=== PATIENT | female | born 1955 | race Caucasian/White ===

== ENCOUNTER → 2016-07-09 | Outpatient (CLI) | payer BC ==
[2016-07-09 10:02] VITALS: BP 127/89; PULSE 112; RESP 20; TEMP 98.3; BMI 38.6
--- NOTE | 2016-07-19 15:02 | P.PN ---
Progress Note - Text DATE OF CONSULTATION: 07/09/2016 CHIEF COMPLAINT: Bariatric consultation. HISTORY OF PRESENT ILLNESS: Marii Juan is a 61-year-old female who has a prior history of a sleeve gastrectomy performed at an outside institution over 5 years ago. Her highest weight for her 5 feet 3-1/2 inch frame was 307 pounds. Her lowest weight was down to 187 pounds. Today she comes in weighing 221 pounds. She has already regained 34 pounds from her lowest. Percent excess weight loss is 51%. Again, her ideal body weight for her 5 feet 3-1/2 frame is 140 pounds. She has developed complications from her sleeve gastrectomy including severe gastroesophageal reflux disease uncontrolled by her medications. Additionally, she also reports epigastric abdominal pain. She did complete an upper endoscopy which was consistent with symptomatic diaphragmatic hiatal hernia as well as complications from her sleeve gastrectomy and dilation. As a result of complications from her sleeve gastrectomy now she presents for further evaluation and management. PAST MEDICAL HISTORY: 1. Morbid obesity. 2. Diabetes type 2, [id number]. 3. Hypertension. 4. Depression. 5. Hyperlipidemia. 6. Gastroesophageal reflux disease. 7. Magnesium deficiency. 8. Diabetic neuropathy. 9. Vitamin D deficiency. 10. Asthma. 11. Postoperative nausea and vomiting. 12. History of difficult intubation. PAST SURGICAL HISTORY: 1. Sleeve gastrectomy. 2. . 3. Hysterectomy. 4. Abdominoplasty. 5. Tendon release. 6. Blepharoplasty. MEDICATIONS: 1. Januvia. 2. Glucophage. 3. Benadryl. 4. Norflex. 5. Effexor-XR. 6. Restoril. 7. Zocor. 8. Protonix. 9. Multivitamin. 10. Magnesium oxide. 11. Cozaar. 12. Amaryl. 13. Neurontin. 14. Vitamin D. 15. Symbicort. 16. Ventolin inhaler. ALLERGIES: CODEINE. SOCIAL HISTORY: Remote history of tobacco use. FAMILY HISTORY: Pertinent for morbid obesity. REVIEW OF SYSTEMS: CONSTITUTIONAL: [place] body weight is 140 pounds. Highest weight of 307 pounds. Present weight 221 pounds. She has maintained an 86 pound weight loss in 5 years. Percent excess weight loss of 51%. Recent weight gain of 34 pounds. BMI reduced from 53.6 down to 38.6. Total BMI point reduction of 15 points. HEENT: Denies any troubles with vision or hearing. Does deny dysphagia. ENDOCRINE: History of diabetes, type II. No reports of thyroid disorder. RESPIRATORY: History of obstructive sleep apnea. She reports restless sleep. She has not been treated for sleep apnea as well. No recent pneumonia. CARDIOVASCULAR: History of hypertension. Denies any recent heart attack. GASTROINTESTINAL: Has severe gastroesophageal reflux disease. Denies any dumping syndrome. MUSCULOSKELETAL: History of diffuse joint arthritis including of the bilateral hips and knees. NEURO: Prior history of head injury with troubles with memory. Otherwise, no reports of seizure disorders. PSYCH: History of depression without suicidal ideation. HEMATOLOGIC: Denies any easy bruising or bleeding or personal history of DVTs. PHYSICAL EXAM: VITAL SIGNS: 98.3, 112, 20, 127/89; 5 feet 3-1/2, 221 pounds. Body mass index of 38.6. GENERAL: Well-developed female no acute distress. HEENT: No scleral icterus. Extraocular movements grossly intact. Moist buccal mucosa. NECK: Supple without lymphadenopathy. CHEST: Nonlabored respirations. Equal excursions. CARDIOVASCULAR: Regular rate and rhythm. ABDOMEN: Soft, nontender, nondistended. MUSCULOSKELETAL: No clubbing, cyanosis, or edema. NEURO: No focal or lateralizing signs. Cranial nerves II through XII grossly within normal limits. PSYCH: Appropriate affect. Alert and oriented to person, place, and time. LABS: Bariatric metabolic panel was reviewed demonstrating hemoglobin was low at 11. INR was within normal limits. Creatinine was elevated at 1.1. Hemoglobin A1c was low at 6.2. Magnesium was low at 1.4. Percent iron saturation was low at 12.2. Iron was low normal at 51. Triglycerides high at 165. HDL was elevated at 63. Trace elements as well as thiamine and B complex were within normal limits. STUDIES: Upper endoscopy was reviewed, demonstrating findings consistent with diaphragmatic hiatal hernia of 6 cm. Large gastric reservoir with LA grade A erosive esophagitis. Chronic gastritis also identified. Pathology report reviewed, demonstrating chronic gastritis without H. pylori gastritis. ASSESSMENT: 1. Morbid obesity due to excess calories. 2. Body mass index reduced from 53.6 down to 38.6. 3. History of status post sleeve gastrectomy. 4. Sleeve gastrectomy complications including gastroesophageal reflux disease and diaphragmatic hiatal hernia. 5. Obstructive sleep apnea, untreated. 6. Diabetes type 2, not insulin-dependent. 7. Essential hypertension. 8. Osteoarthritis. 9. Asthma. 10. History of difficult intubation. 11. History postoperative nausea and vomiting. PLAN: 1. I have gone over her presentation for which she actually has complications from her sleeve gastrectomy with epigastric abdominal pain and diaphragmatic hiatal hernia. As such, given the severity of reflux disease and hiatal hernia, I have recommended gastric bypass as a corrective procedure. 2. She is actually undergoing medical supervised weight loss at least for the past 4 months. Her weight has been fairly stable despite prior weight loss attempts. 3. In the interim, she is taking toxic doses between Zantac and Protonix to try to control her symptoms; however, her symptoms are still moderate to severe. 4. Recommend treatment for obstructive sleep apnea including CPAP machine and evaluation is advised. 5. Also recommend EKG evaluation as she was tachycardic. 6. Recommend medical risk assessment and clearance. 7. On further discussion, she demonstrates understanding of the risks for surgery; however, she may benefit from a psychiatric evaluation as she has baseline depression. 8. I have recommended follow-up at least on a monthly basis for her medical supervised weight loss between myself and primary care provider. Thank you very much for this kind consultation.
== END | disposition home or self-care (01) ==
LOC: BARWHC3 09:33
PROVIDERS: ATTEND Surgery Plastic and Reconstructive Surgery
DX: Z01.818 Encounter for other preprocedural examination (principal); Z98.84 Bariatric surgery status; F17.200 Nicotine dependence, unspecified, uncomplicated; Z88.6 Allergy status to analgesic agent; Z79.899 Other long term (current) drug therapy; E66.01 Morbid (severe) obesity due to excess calories; Z68.38 Body mass index [BMI] 38.0-38.9, adult; K95.89 Other complications of other bariatric procedure; K21.9 Gastro-esophageal reflux disease without esophagitis; K44.9 Diaphragmatic hernia without obstruction or gangrene; G47.33 Obstructive sleep apnea (adult) (pediatric); E11.9 Type 2 diabetes mellitus without complications; I10 Essential (primary) hypertension; M19.90 Unspecified osteoarthritis, unspecified site; J45.909 Unspecified asthma, uncomplicated; Z87.898 Personal history of other specified conditions
CPT/HCPCS: 99201

== ENCOUNTER → 2016-09-01 | Outpatient (CLI) | payer BC ==
--- NOTE | 2016-09-01 19:07 | CONS ---
PRIMARY CARE PHYSICIAN: Dr. Marii Goncalves. REFERRING PHYSICIAN: Dr. Carol Rogers A 61-year-old female patient coming in for sleep apnea evaluation. The patient has had a history of morbid obesity and she has undergone gastric sleeve procedure many years back at [facility] through Dr. Wilder. The patient has lost a considerable amount of weight and back then she used to weigh around 307 pounds and she is down to 187. The patient back then was diagnosed having obstructive sleep apnea and she was offered CPAP therapy through [facility], which she was unable to tolerate and use and she stayed off treatment. Nevertheless, with subsequent weight loss, she felt better and she would not require any treatment. Currently she weighs 222 pounds. She is having active symptoms of GERD to the point where the patient is unable to sleep flat in bed and she has been using a couple of pillows to keep her head of the bed elevated. The patient is refluxing at all times and for that reason she had seen Dr. Rogers, who has found a moderate to large size hiatal hernia and her reflux has been refractory to treatment, despite being on high-dose Protonix and conservative measures. At this point in time, the patient is being considered for another surgery which will include a Yessenia-en-Y gastric bypass surgery. She was referred for another sleep apnea evaluation, knowing that there is some concern of residual obstructive sleep apnea. The patient is snoring, according to her , and she is having some difficulties in maintaining sleep. She goes to bed around 10:30 p.m., wakes up at 7:00 a.m. in the morning. She is averaging more than 5 hours of sleep. No nocturia. No dry mouth. No anxiety or panic attacks. Main complaint at nighttime remains heartburn, which also occurs during the day. 1. Morbid obesity, status post gastric sleeve procedure; details discussed above. 2. Obstructive sleep apnea, history of. 3. Gastroesophageal reflux disease. 4. Diabetes. 5. Hypertension. 6. Bronchial asthma. 7. Hyperlipidemia. 8. Hiatal hernia. Past surgical history includes sleeve gastrectomy, hysterectomy, and abdominoplasty. DRUG ALLERGIES ARE CODEINE SENSITIVITY. Outpatient medication list includes: 1. Glucophage 1 g b.i.d. 2. Protonix 40 b.i.d. 3. Effexor 150 mg p.o. daily. 4. Amaryl 4 mg p.o. twice a day. 5. Januvia 100 mg p.o. daily. 6. Norvasc 5 mg p.o. daily. 7. Symbicort 160/4.5, 2 puffs twice a day. 8. Ventolin as needed. 9. Temazepam 30 mg p.o. at bedtime. 10. Zocor 20 mg p.o. daily. 11. Cozaar 100 mg p.o. daily. 12. Neurontin 300 mg p.o. daily. 13. Zofran an as-needed basis. 14. The patient has also various supplements. SOCIAL HISTORY: The patient is a nonsmoker. No history of alcoholism. No history of IV drugs. FAMILY HISTORY: Noncontributory. REVIEW OF SYSTEMS: Twelve-point review of systems was done and the positive findings were all mentioned above in the history of present illness. BP is 147/82, pulse 106, respirations 16, temperature 98.7, saturation 96% on room air. Temperature 97.2. Weight is 222. Height is 5 feet 3 inches. Neck size 14-1/2 inches. GENERAL APPEARANCE: Calm, comfortable. HEENT: Short neck, crowding in posterior pharynx. There is no goiter, neck masses. LUNGS: Clear to auscultation. HEART: Heart sounds are regular rate and rhythm. Normal S1, S2. ABDOMEN: Soft, nontender. No organomegaly. EXTREMITIES: No edema. No cyanosis or clubbing. IMPRESSION: 1. Obstructive sleep apnea, currently under re-investigation. The patient had been diagnosed many years back; however, she has lost a considerable amount of weight following sleeve gastrectomy. She is having some symptoms of obstructive sleep apnea and she needs to be re-evaluated. 2. Severe gastroesophageal reflux with excessive nocturnal symptoms. 3. Rule out obstructive sleep apnea contributing to her symptoms of gastroesophageal reflux disease. 4. Large hiatal hernia. 5. Gastric sleeve procedure for morbid obesity. 6. Diabetes. 7. Hypertension. 8. Bronchial asthma. 9. Hyperlipidemia PLAN: 1. Encourage further weight loss. 2. Proceed with another sleep study to assess the presence and severity of obstructive sleep apnea and decide treatment accordingly.
== END | disposition home or self-care (01) ==
LOC: SLEEP 14:12
PROVIDERS: ATTEND Internal Medicine Critical Care Medicine
DX: G47.33 Obstructive sleep apnea (adult) (pediatric) (principal); E66.01 Morbid (severe) obesity due to excess calories; K21.9 Gastro-esophageal reflux disease without esophagitis; K44.9 Diaphragmatic hernia without obstruction or gangrene; Z98.84 Bariatric surgery status; E11.9 Type 2 diabetes mellitus without complications; I10 Essential (primary) hypertension; J45.909 Unspecified asthma, uncomplicated; E78.5 Hyperlipidemia, unspecified; Z79.899 Other long term (current) drug therapy; Z88.8 Allergy status to other drugs, medicaments and biological substances
CPT/HCPCS: 99211

== ENCOUNTER → 2016-10-15 | Outpatient (CLI) | payer BC ==
[2016-10-15 09:09] VITALS: BP 133/81; PULSE 94; RESP 15; TEMP 98.2; BMI 38.9
--- NOTE | 2016-12-03 13:40 | P.PN ---
Progress Note - Text DATE OF SERVICE: 10/15/2016 CHIEF COMPLAINT: Bariatric assessment. HISTORY OF PRESENT ILLNESS: Marii Juan is a pleasant 61 -year-old female who initially presented to the bariatric program with me from July 2016. Her personal history is significant for a sleeve gastrectomy from an outside institution over 5 years ago. At her 5 feet 3-1/2 inches, her highest weight was 307 pounds. Today she comes in weighing 223 pounds. She has maintained an 84 pounds weight loss. Her ideal body is 140 pounds. She has achieved 50% excess weight loss. Body mass index ia reduced from 53.6 down to 39. Total BMI point reduction is 14.7. She is still 83 pounds overweight. Since her last evaluation 3 months ago she has gained 2 pounds. She has been evaluated and found to have obstructive sleep apnea as well. Separately, she reports severe gastroesophageal reflux disease. PAST MEDICAL HISTORY: 1. Morbid obesity. 2. Diabetes type 2, [id number]. 3. Hypertension. 4. Depression. 5. Hyperlipidemia. 6. Gastroesophageal reflux disease. 7. Magnesium deficiency. 8. Diabetic neuropathy. 9. Vitamin D deficiency. 10. Asthma. 11. Postoperative nausea and vomiting. 12. History of difficult intubation. PAST SURGICAL HISTORY: 1. Sleeve gastrectomy. 2. . 3. Hysterectomy. 4. Abdominoplasty. 5. Tendon release. 6. Blepharoplasty. 7. Upper endoscopy. MEDICATIONS: 1. Januvia. 2. Glucophage. 3. Benadryl. 4. Norvasc. 5. Effexor-XR. 6. Restoril. 7. Zocor. 8. Protonix. 9. Multivitamin. 10. Magnesium oxide. 11. Cozaar. 12. Amaryl. 13. Neurontin. 14. Vitamin D. 15. Symbicort. 16. Ventolin inhaler. ALLERGIES: CODEINE. SOCIAL HISTORY: Remote history of tobacco use. FAMILY HISTORY: Pertinent for morbid obesity. REVIEW OF SYSTEMS: CONSTITUTIONAL: At her 5 feet 3-1/2 inches, her highest weight was 307 pounds. Today she comes in weighing 223 pounds. She has maintained an 84 pounds weight loss. Her ideal body is 140 pounds. She has achieved 50% excess weight loss. Body mass index ia reduced from 53.6 down to 39. Total BMI point reduction is 14.7. She is still 83 pounds overweight. Since her last evaluation 3 months ago she has gained 2 pounds GASTROINTESTINAL: Upper endoscopy consistent with a large moderate size hiatal hernia. Has severe gastroesophageal reflux disease. Denies any dumping syndrome. HEENT: Denies any troubles with vision or hearing. Does deny dysphagia. ENDOCRINE: History of diabetes, type II. No reports of thyroid disorder. RESPIRATORY: History of obstructive sleep apnea. She reports restless sleep. She has not been treated for sleep apnea as well. No recent pneumonia. CARDIOVASCULAR: History of hypertension. Denies any recent heart attack. MUSCULOSKELETAL: History of diffuse joint arthritis including of the bilateral hips and knees. NEURO: Prior history of head injury with troubles with memory. Otherwise, no reports of seizure disorders. PSYCH: History of depression without suicidal ideation. HEMATOLOGIC: Denies any easy bruising or bleeding or personal history of DVTs. PHYSICAL EXAM: VITAL SIGNS: 98.2, 94, 50, 133/81, 5 feet 3-1/2, 223 pounds. Body mass index is 39. GENERAL: Well-developed female no acute distress. HEENT: No scleral icterus. Extraocular movements grossly intact. Moist buccal mucosa. NECK: Supple without lymphadenopathy. CHEST: Nonlabored respirations. Equal excursions. CARDIOVASCULAR: Regular rate and rhythm. ABDOMEN: Soft, nontender, nondistended. MUSCULOSKELETAL: No clubbing, cyanosis, or edema. NEURO: No focal or lateralizing signs. Cranial nerves II through XII grossly within normal limits. PSYCH: Appropriate affect. Alert and oriented to person, place, and time. STUDIES: Upper endoscopy is completed, demonstrating large diaphragmatic hiatal hernia without obstruction of over 6 cm. Large gastric reservoir also identified for a sleeve gastrectomy. Studies also demonstrate a large diaphragmatic hiatal hernia. Sleep study demonstrates positive finding of obstructive sleep apnea. LABS: Bariatric metabolic panel was reviewed with hemoglobin was low at 11. White count was normal limits. Creatinine was elevated at 1.1. Hemoglobin A1c was elevated at 6.2%. Magnesium was low at 1.4. Percent iron saturation was low at 12.2. Triglycerides elevated at 165. HDL was elevated at 63. ASSESSMENT: 1. Morbid obesity due to excess calories. 2. Body mass index reduced from 53.6 down to 39. 3. History of status post sleeve gastrectomy. 4. Sleeve gastrectomy complications including gastroesophageal reflux disease and diaphragmatic hiatal hernia. 5. Obstructive sleep apnea, untreated. 6. Diabetes type 2, not insulin-dependent. 7. Essential hypertension. 8. Osteoarthritis. 9. Asthma. 10. History of difficult intubation. 11. History postoperative nausea and vomiting. 12. Hypomagnesia. 13. Iron deficiency anemia. PLAN: 1. With her history of a sleeve gastrectomy including large size diaphragmatic hiatal hernia, her main symptoms also includes her gastroesophageal reflux disease. Surgical intervention including hiatal hernia repair including Yessenia-en-Y gastric bypass was reviewed as she reports trouble with her sleeve gastrectomy. 2. On diagnostic imaging studies, features are consistent with technical complications from her sleeve whereby revision to Yessenia-en-Y gastric bypass would be of benefit. Separately, her body mass index is still over 35, where she will have maximal benefit. 3. She has elevated hemoglobin A1c which is consistent with Type 2 diabetes. 4. She has also developed obstructive sleep apnea since her sleeve gastrectomy which also demonstrates inadequate control of morbid obesity. 5. As she is revisional procedure, increased risk of bleeding, infection more importantly, strictures were reviewed. In review of the patient's profile, chart and record, she will be ideal candidate for revision to a Yessenia-En-Y gastric bypass from the complications from sleeve gastrectomy. 6. In the interim, recommend medical management for gastroesophageal reflux disease. 7. Inpatient hospitalization over 2 nights advised. 8. Deep venous thrombosis prophylaxis. 9. Antibiotic prophylaxis. Thank you for this kind consultation. ADDENDUM: Laboratory results also demonstrating need for correction of magnesium including iron intake.
== END | disposition home or self-care (01) ==
LOC: BARWHC3 08:45
PROVIDERS: ATTEND Surgery Plastic and Reconstructive Surgery
DX: Z01.818 Encounter for other preprocedural examination (principal); Z79.899 Other long term (current) drug therapy; E66.01 Morbid (severe) obesity due to excess calories; Z68.39 Body mass index [BMI] 39.0-39.9, adult; G47.33 Obstructive sleep apnea (adult) (pediatric); K21.9 Gastro-esophageal reflux disease without esophagitis; K44.9 Diaphragmatic hernia without obstruction or gangrene; K95.89 Other complications of other bariatric procedure
CPT/HCPCS: 99211

== ENCOUNTER → 2016-12-23 | Outpatient (CLI) | payer BC ==
[2016-12-23 15:58] VITALS: BP 184/86; PULSE 92; TEMP 98.1; BMI 38.9
--- NOTE | 2017-01-16 23:15 | P.PN ---
Progress Note - Text DATE OF SERVICE: 12/23/2016 CHIEF COMPLAINT: Bariatric assessment. HISTORY OF PRESENT ILLNESS: Marii Juan is a pleasant 61 -year-old female who initially presented to the bariatric program with me from July 2016. She has a personal history of a sleeve gastrectomy with complications. She reports gastroesophageal reflux disease including epigastric abdominal pain. To revise her procedure, she is evaluating for a Yessenia-en-Y gastric bypass. At her 5 feet 3-1/2 inches, her highest weight was 307 pounds. Today she comes in weighing 223 pounds. Her weight has been unchanged in the past 2 months. She has maintained an 84 pounds weight loss. Her ideal body is 140 pounds. She has achieved 50% excess weight loss. Body mass index ia reduced from 53.6 down to 39. She is still 83 pounds overweight. PAST MEDICAL HISTORY: 1. Morbid obesity. 2. Diabetes type 2, [id number]. 3. Hypertension. 4. Depression. 5. Hyperlipidemia. 6. Gastroesophageal reflux disease. 7. Magnesium deficiency. 8. Diabetic neuropathy. 9. Vitamin D deficiency. 10. Asthma. 11. Postoperative nausea and vomiting. 12. History of difficult intubation. PAST SURGICAL HISTORY: 1. Sleeve gastrectomy. 2. . 3. Hysterectomy. 4. Abdominoplasty. 5. Tendon release. 6. Blepharoplasty. 7. Upper endoscopy. MEDICATIONS: 1. Januvia. 2. Glucophage. 3. Benadryl. 4. Norvasc. 5. Effexor-XR. 6. Restoril. 7. Zocor. 8. Protonix. 9. Multivitamin. 10. Magnesium oxide. 11. Cozaar. 12. Amaryl. 13. Neurontin. 14. Vitamin D. 15. Symbicort. 16. Ventolin inhaler. ALLERGIES: CODEINE. SOCIAL HISTORY: Remote history of tobacco use. FAMILY HISTORY: Pertinent for morbid obesity. REVIEW OF SYSTEMS: CONSTITUTIONAL: At her 5 feet 3-1/2 inches, her highest weight was 307 pounds. Today she comes in weighing 223 pounds. She has maintained an 84 pounds weight loss. Her ideal body is 140 pounds. She has achieved 50% excess weight loss. Body mass index ia reduced from 53.6 down to 39. GASTROINTESTINAL: Upper endoscopy consistent with a large moderate size hiatal hernia. Has severe gastroesophageal reflux disease. Denies any dumping syndrome. HEENT: Denies any troubles with vision or hearing. Does deny dysphagia. ENDOCRINE: History of diabetes, type II. No reports of thyroid disorder. RESPIRATORY: History of obstructive sleep apnea. She reports restless sleep. She has not been treated for sleep apnea as well. No recent pneumonia. CARDIOVASCULAR: History of hypertension. Denies any recent heart attack. MUSCULOSKELETAL: History of diffuse joint arthritis including of the bilateral hips and knees. NEURO: Prior history of head injury with troubles with memory. Otherwise, no reports of seizure disorders. PSYCH: History of depression without suicidal ideation. HEMATOLOGIC: Denies any easy bruising or bleeding or personal history of DVTs. PHYSICAL EXAM: VITAL SIGNS: 5 feet 3-1/2, 223 pounds. Body mass index is 39. Vital Signs Temp 98.1 F 12/23/16 15:53 Pulse 92 12/23/16 15:53 Resp BP 184/86 12/23/16 15:53 Pulse Ox GENERAL: Well-developed female no acute distress. HEENT: No scleral icterus. Extraocular movements grossly intact. Moist buccal mucosa. NECK: Supple without lymphadenopathy. CHEST: Nonlabored respirations. Equal excursions. CARDIOVASCULAR: Regular rate and rhythm. ABDOMEN: Soft, nontender, nondistended. MUSCULOSKELETAL: No clubbing, cyanosis, or edema. NEURO: No focal or lateralizing signs. Cranial nerves II through XII grossly within normal limits. PSYCH: Appropriate affect. Alert and oriented to person, place, and time. SKIN: Well perfused. Good skin turgor. STUDIES: Upper endoscopy is completed, demonstrating large diaphragmatic hiatal hernia without obstruction of over 6 cm. Large gastric reservoir also identified for a sleeve gastrectomy. Studies also demonstrate a large diaphragmatic hiatal hernia. Sleep study demonstrates positive finding of obstructive sleep apnea. LABS: Bariatric metabolic panel was reviewed with hemoglobin was low at 11. White count was normal limits. Creatinine was elevated at 1.1. Hemoglobin A1c was elevated at 6.2%. Magnesium was low at 1.4. Percent iron saturation was low at 12.2. Triglycerides elevated at 165. HDL was elevated at 63. ASSESSMENT: 1. Morbid obesity due to excess calories. 2. Body mass index reduced from 53.6 down to 39. 3. History of status post sleeve gastrectomy. 4. Sleeve gastrectomy complications including gastroesophageal reflux disease and diaphragmatic hiatal hernia. 5. Obstructive sleep apnea, untreated. 6. Diabetes type 2, not insulin-dependent. 7. Essential hypertension. 8. Osteoarthritis. 9. Asthma. 10. History of difficult intubation. 11. History postoperative nausea and vomiting. 12. Hypomagnesia. 13. Iron deficiency anemia. 14. Obstructive sleep apnea. PLAN: 1. Benefits and risks of revision to a Yessenia-en-Y gastric bypass was described in detail. 2. DVT prophylaxis. 3. Antibiotic prophylaxis. 4. Will need inpatient hospitalization at least 2 nights. 5. Risks of leaks including bleeding, infection, nutritional deficiencies, need for further surgeries, and stricture were reviewed. 6. Recommend completion of medical supervised weight loss. 7. Will need cardiac risk assessment. 8. Recommend medical risk assessment. 9. Psych assessment per insurance guidelines. 10. Follow-up upon completion of bariatric metabolic profile.
== END ==
LOC: BARWHC3 14:48
PROVIDERS: ATTEND Surgery Plastic and Reconstructive Surgery
DX: Z48.815 Encounter for surgical aftercare following surgery on the digestive system (principal); K95.89 Other complications of other bariatric procedure; G47.33 Obstructive sleep apnea (adult) (pediatric); E11.9 Type 2 diabetes mellitus without complications; I10 Essential (primary) hypertension; M19.90 Unspecified osteoarthritis, unspecified site; J45.909 Unspecified asthma, uncomplicated; D50.9 Iron deficiency anemia, unspecified; E83.42 Hypomagnesemia; F32.9 Major depressive disorder, single episode, unspecified; E78.5 Hyperlipidemia, unspecified; K21.9 Gastro-esophageal reflux disease without esophagitis; E66.01 Morbid (severe) obesity due to excess calories; Z68.39 Body mass index [BMI] 39.0-39.9, adult; Z79.899 Other long term (current) drug therapy; Z98.84 Bariatric surgery status
CPT/HCPCS: 99211

== ENCOUNTER → 2017-01-06 | Outpatient (CLI) | payer BC ==
[2017-01-06 17:02] VITALS: BP 184/86; PULSE 88; TEMP 98.5; BMI 39.2
--- NOTE | 2017-01-20 07:59 | P.PN ---
Progress Note - Text DATE OF SERVICE: 01/06/2017 CHIEF COMPLAINT: Bariatric assessment. HISTORY OF PRESENT ILLNESS: Marii Juan is a pleasant 61 -year-old female who initially presented to the bariatric program in July 2016. She has a previous history of a sleeve gastrectomy performed over 5+ years ago now with complication from her sleeve including mechanical deformity causing severe lifestyle limiting gastroesophageal reflux disease. As a result, she presents with persistent moderate to severe epigastric abdominal pain. She takes near toxic doses of antacids without much improvement of her symptoms. To revise her procedure, she is evaluating for a Yessenia-en-Y gastric bypass. At her 5 feet 3-1/2 inches, her highest weight was 307 pounds. Today she comes in weighing 224 pounds. Over 8 months, she has also undergone medical supervised weight loss. She has maintained an 83 pounds weight loss. Her ideal body is 140 pounds. She has achieved 50% excess weight loss. Body mass index is reduced from 53.6 down to 39.2. She is still 84 pounds overweight. PAST MEDICAL HISTORY: 1. Morbid obesity. 2. Diabetes type 2, [id number]. 3. Hypertension. 4. Depression. 5. Hyperlipidemia. 6. Gastroesophageal reflux disease. 7. Magnesium deficiency. 8. Diabetic neuropathy. 9. Vitamin D deficiency. 10. Asthma. 11. Postoperative nausea and vomiting. 12. History of difficult intubation. PAST SURGICAL HISTORY: 1. Sleeve gastrectomy. 2. . 3. Hysterectomy. 4. Abdominoplasty. 5. Tendon release. 6. Blepharoplasty. 7. Upper endoscopy. MEDICATIONS: 1. Januvia. 2. Glucophage. 3. Benadryl. 4. Norvasc. 5. Effexor-XR. 6. Restoril. 7. Zocor. 8. Protonix. 9. Multivitamin. 10. Magnesium oxide. 11. Cozaar. 12. Amaryl. 13. Neurontin. 14. Vitamin D. 15. Symbicort. 16. Ventolin inhaler. ALLERGIES: CODEINE. SOCIAL HISTORY: Remote history of tobacco use. FAMILY HISTORY: Pertinent for morbid obesity. REVIEW OF SYSTEMS: CONSTITUTIONAL: At her 5 feet 3-1/2 inches, her highest weight was 307 pounds. Today she comes in weighing 224 pounds. She has maintained an 83 pounds weight loss. Her ideal body is 140 pounds. She has achieved 50% excess weight loss. Body mass index ia reduced from 53.6 down to 39.2. GASTROINTESTINAL: Upper endoscopy consistent with a large moderate size hiatal hernia. Has severe gastroesophageal reflux disease. Denies any dumping syndrome. HEENT: Denies any troubles with vision or hearing. Does deny dysphagia. ENDOCRINE: History of diabetes, type II. No reports of thyroid disorder. RESPIRATORY: History of obstructive sleep apnea. She reports restless sleep. She has not been treated for sleep apnea as well. No recent pneumonia. CARDIOVASCULAR: History of hypertension. Denies any recent heart attack. MUSCULOSKELETAL: History of diffuse joint arthritis including of the bilateral hips and knees. NEURO: Prior history of head injury with troubles with memory. Otherwise, no reports of seizure disorders. PSYCH: History of depression without suicidal ideation. HEMATOLOGIC: Denies any easy bruising or bleeding or personal history of DVTs. PHYSICAL EXAM: VITAL SIGNS: 5 feet 3-1/2, 224 pounds. Body mass index is 39.2 Vital Signs 01/06/17 16:52 Temperature 98.5 F Pulse Rate 88 Blood Pressure 184/86 GENERAL: Well-developed female no acute distress. HEENT: No scleral icterus. Extraocular movements grossly intact. Moist buccal mucosa. NECK: Supple without lymphadenopathy. CHEST: Nonlabored respirations. Equal excursions. CARDIOVASCULAR: Regular rate and rhythm. ABDOMEN: Soft, nontender, nondistended. MUSCULOSKELETAL: No clubbing, cyanosis, or edema. NEURO: No focal or lateralizing signs. Cranial nerves II through XII grossly within normal limits. PSYCH: Appropriate affect. Alert and oriented to person, place, and time. SKIN: Well perfused. Good skin turgor. STUDIES: Upper endoscopy is completed, demonstrating large diaphragmatic hiatal hernia over 6 cm. Large gastric reservoir also identified with tapering along the angularis incisura of her sleeve gastrectomy. Studies also demonstrate a large diaphragmatic hiatal hernia. Sleep study demonstrates positive finding of obstructive sleep apnea. LABS: Bariatric metabolic panel was reviewed with hemoglobin was low at 11. White count was normal limits. Creatinine was elevated at 1.1. Hemoglobin A1c was elevated at 6.2%. Magnesium was low at 1.4. Percent iron saturation was low at 12.2. Triglycerides elevated at 165. HDL was elevated at 63. ASSESSMENT: 1. Morbid obesity due to excess calories. 2. Body mass index reduced from 53.6 down to 39.2. 3. History of status post sleeve gastrectomy. 4. Sleeve gastrectomy with mechanical complications. 5. Obstructive sleep apnea, untreated. 6. Diabetes type 2, not insulin-dependent. 7. Essential hypertension. 8. Osteoarthritis. 9. Asthma. 10. History of difficult intubation. 11. History postoperative nausea and vomiting. 12. Hypomagnesia. 13. Iron deficiency anemia. 14. Obstructive sleep apnea. 15. Dietary surveillance and counseling. 16. Gastroesophageal reflux disease. PLAN: 1. She has multiple mechanical complications of her sleeve gastrectomy which is causing her epigastric abdominal pain including severe lifestyle limiting gastroesophageal reflux disease. Despite conservative measures including medications, her symptoms have progressed. Recommend correction of her sleeve gastrectomy with revision to a Yessenia-en-Y gastric bypass which will also serve as a an appropriate antireflux operation. Benefits and risks of revision to a Yessenia-en-Y gastric bypass with repair of diaphragmatic hiatal hernia was described in detail including increased risk for leaks, stricture, nutritional deficiencies, intestinal adhesions, and need for additional procedures. 2. DVT prophylaxis. 3. Antibiotic prophylaxis. 4. Will need inpatient hospitalization at least 2 nights. 5. Risks of leaks including bleeding, infection, nutritional deficiencies, need for further surgeries, and stricture were reviewed. 6. She has completed nutritional calluses including medical supervised weight loss. 7. She has completed cardiac risk assessment. 8. She has completed medical risk assessment. 9. Psych assessment per insurance guidelines has been completed. 10. Overall, patient will benefit from revision of her sleeve gastrectomy.
== END | disposition home or self-care (01) ==
LOC: BARWHC3 15:39
PROVIDERS: ATTEND Surgery Plastic and Reconstructive Surgery
DX: Z01.818 Encounter for other preprocedural examination (principal); I10 Essential (primary) hypertension; E66.01 Morbid (severe) obesity due to excess calories; G47.33 Obstructive sleep apnea (adult) (pediatric); E11.9 Type 2 diabetes mellitus without complications; M19.90 Unspecified osteoarthritis, unspecified site; J45.909 Unspecified asthma, uncomplicated; E83.42 Hypomagnesemia; D50.9 Iron deficiency anemia, unspecified; K21.9 Gastro-esophageal reflux disease without esophagitis; F32.9 Major depressive disorder, single episode, unspecified; Z98.84 Bariatric surgery status; Z68.39 Body mass index [BMI] 39.0-39.9, adult; Z71.3 Dietary counseling and surveillance; Z88.5 Allergy status to narcotic agent; Z79.899 Other long term (current) drug therapy
CPT/HCPCS: 99211

== ENCOUNTER → 2017-01-27 | Outpatient (CLI) | payer BC ==
--- NOTE | 2017-03-06 15:11 | P.PN ---
Progress Note - Text DATE OF SERVICE: 01/27/2017 CHIEF COMPLAINT: Bariatric assessment. HISTORY OF PRESENT ILLNESS: Marii Juan is a pleasant 61 -year-old female who initially presented to the bariatric program in July 2016. She has personal history of previous sleeve gastrectomy with finding of moderate size hiatal hernia. She has been taking toxic doses of antireflux medications with minimal improvement. As a correction of a medical complication from her sleeve gastrectomy, she is evaluating for gastric bypass. Separately, she reports fatty food intolerance. As a result of her obesity, she developed sleep apnea, diabetes type 2, hypertension including hyperlipidemia. At her 5 feet 3-1/2 inches, her highest weight was 307 pounds. Today she comes in weighing 220 pounds. She has lost 4 pounds in 1 month. She has maintained an 87 pounds weight loss. Her ideal body is 140 pounds. She has achieved 52% excess weight loss. Body mass index is reduced from 53.6 down to 38.5. She is still 80 pounds overweight. PAST MEDICAL HISTORY: 1. Morbid obesity. 2. Diabetes type 2, [id number]. 3. Hypertension. 4. Depression. 5. Hyperlipidemia. 6. Gastroesophageal reflux disease. 7. Magnesium deficiency. 8. Diabetic neuropathy. 9. Vitamin D deficiency. 10. Asthma. 11. Postoperative nausea and vomiting. 12. History of difficult intubation. PAST SURGICAL HISTORY: 1. Sleeve gastrectomy. 2. . 3. Hysterectomy. 4. Abdominoplasty. 5. Tendon release. 6. Blepharoplasty. 7. Upper endoscopy. MEDICATIONS: 1. Januvia. 2. Glucophage. 3. Benadryl. 4. Norvasc. 5. Effexor-XR. 6. Restoril. 7. Zocor. 8. Protonix. 9. Multivitamin. 10. Magnesium oxide. 11. Cozaar. 12. Amaryl. 13. Neurontin. 14. Vitamin D. 15. Symbicort. 16. Ventolin inhaler. ALLERGIES: CODEINE. SOCIAL HISTORY: Remote history of tobacco use. FAMILY HISTORY: Pertinent for morbid obesity. REVIEW OF SYSTEMS: CONSTITUTIONAL: At her 5 feet 3-1/2 inches, her highest weight was 307 pounds. Today she comes in weighing 220 pounds. She has maintained an 87 pounds weight loss. Her ideal body is 140 pounds. She has achieved 52% excess weight loss. Body mass index ia reduced from 53.6 down to 38.5. GASTROINTESTINAL: Upper endoscopy consistent with a large moderate size hiatal hernia. Has severe gastroesophageal reflux disease. Denies any dumping syndrome. HEENT: Denies any troubles with vision or hearing. Does deny dysphagia. ENDOCRINE: History of diabetes, type II. No reports of thyroid disorder. RESPIRATORY: History of obstructive sleep apnea. She reports restless sleep. She has not been treated for sleep apnea as well. No recent pneumonia. CARDIOVASCULAR: History of hypertension. Denies any recent heart attack. MUSCULOSKELETAL: History of diffuse joint arthritis including of the bilateral hips and knees. NEURO: Prior history of head injury with troubles with memory. Otherwise, no reports of seizure disorders. PSYCH: History of depression without suicidal ideation. HEMATOLOGIC: Denies any easy bruising or bleeding or personal history of DVTs. PHYSICAL EXAM: VITAL SIGNS: 5 feet 3-1/2, 220 pounds. Body mass index is 38.5. Vital Signs Temp 97.8 F 01/27/17 14:58 Pulse 79 01/27/17 14:58 Resp 16 01/27/17 14:58 BP 172/71 01/27/17 14:58 Pulse Ox GENERAL: Well-developed female no acute distress. HEENT: No scleral icterus. Extraocular movements grossly intact. Moist buccal mucosa. NECK: Supple without lymphadenopathy. CHEST: Nonlabored respirations. Equal excursions. CARDIOVASCULAR: Regular rate and rhythm. ABDOMEN: Soft, nontender, nondistended. MUSCULOSKELETAL: No clubbing, cyanosis, or edema. NEURO: No focal or lateralizing signs. Cranial nerves II through XII grossly within normal limits. PSYCH: Appropriate affect. Alert and oriented to person, place, and time. SKIN: Well perfused. Good skin turgor. STUDIES: Upper endoscopy is completed, demonstrating large diaphragmatic hiatal hernia over 6 cm. Large gastric reservoir also identified with tapering along the angularis incisura of her sleeve gastrectomy. Studies also demonstrate a large diaphragmatic hiatal hernia. Sleep study demonstrates positive finding of obstructive sleep apnea. ASSESSMENT: 1. Morbid obesity due to excess calories. 2. Body mass index reduced from 53.6 down to 38.5. 3. History of status post sleeve gastrectomy. 4. Sleeve gastrectomy with mechanical complications. 5. Obstructive sleep apnea, untreated. 6. Diabetes type 2, not insulin-dependent. 7. Essential hypertension. 8. Osteoarthritis. 9. Asthma. 10. History of difficult intubation. 11. History postoperative nausea and vomiting. 12. Hypomagnesia. 13. Iron deficiency anemia. 14. Right upper quadrant abdominal pain. 15. Dietary surveillance and counseling. 16. Gastroesophageal reflux disease. PLAN: 1. She has developed some limiting gastroesophageal reflux disease following mechanical complications from her sleeve gastrectomy. As a correction of her procedure, a conversion to a Yessenia-en-Y gastric bypass has been described in detail including increased risk for leaks, stricture, nutritional deficiencies, intestinal adhesions, and need for additional procedures. 2. DVT prophylaxis. 3. Antibiotic prophylaxis. 4. Will need inpatient hospitalization at least 2 nights. 5. Risks of leaks including bleeding, infection, nutritional deficiencies, need for further surgeries, and stricture were reviewed. 6. She has completed nutritional calluses including medical supervised weight loss. 7. She has completed cardiac risk assessment. 8. She has completed medical risk assessment. 9. Also recommend a right upper quadrant sound to evaluate for gallstones. Should her study be positive, recommend cholecystectomy at time of operation.
== END | disposition home or self-care (01) ==
CPT/HCPCS: 99211

== ENCOUNTER → 2017-01-27 | Outpatient (CLI) | payer BC ==
[2017-01-27 17:07] LABS: EKG EKG PERFORMED
[2017-01-27 17:35] LABS: Basophils # (A) 0.1 k/uL (0-0.2); Basophils % (A) 0 %; CH 27.7; CHCM 32.2; Eosinophils # (A) 0.2 k/uL (0-0.7); Eosinophils % (A) 2 %; HCT 35.7 % (34.0-46.0); HDW 2.57; HGB 11.1 gm/dL (11.4-16.0); Luc # (Auto) 0.36; Luc % (Auto) 3; Lymphocytes # (A) 2.3 k/uL (1.0-4.8); Lymphocytes % (A) 21 %; MCH 26.9 pg (25.0-35.0); MCV 86.6 fL (80.0-100.0); Mean Platelet Volume 6.6; Monocytes # (A) 0.4 k/uL (0-1.0); Monocytes % (A) 4 %; Neutrophils # (A) 7.9 k/uL (1.3-7.7); Neutrophils % (A) 70 %; RBC 4.12 m/uL (3.80-5.40); RDW 14.8 % (11.5-15.5); WBC 11.3 k/uL (3.8-10.6); WBC (Perox) 11.22
[2017-01-27 17:52] LABS: ALT 26 U/L (9-52); AST 19 U/L (14-36); Alkaline Phosphatase 57 U/L (38-126); Anion Gap 14 mmol/L; Blood Urea Nitrogen 31 mg/dL (7-17); Calcium 10.7 mg/dL (8.4-10.2); Carbon Dioxide 23 mmol/L (22-30); Chloride 100 mmol/L (98-107); Glucose 103 mg/dL (74-99); Non-African American GFR(MDRD) 50 (>60 ml/min/1.73 sqM); Potassium 4.3 mmol/L (3.5-5.1); Sodium 137 mmol/L (137-145); Total Bilirubin 0.3 mg/dL (0.2-1.3); Total Protein 8.4 g/dL (6.3-8.2)
== END ==
LOC: LABPAT 16:29
PROVIDERS: ATTEND Surgery Plastic and Reconstructive Surgery
DX: Z01.810 Encounter for preprocedural cardiovascular examination (principal); Z01.818 Encounter for other preprocedural examination; I10 Essential (primary) hypertension
CPT/HCPCS: 80053; 83036; 85025; 86850; 86900; 86901; 93005

== ENCOUNTER → 2017-01-29 | Outpatient (CLI) | payer BC ==
--- NOTE | 2017-01-29 10:01 | US ---
EXAMINATION TYPE: US abdomen limited DATE OF EXAM: 01/29/2017 COMPARISON: NONE CLINICAL HISTORY: R10.00 RUQ abd pain. EXAM MEASUREMENTS: Liver Length: 14.5 cm Gallbladder Wall: 0.3 cm CBD: 0.4 cm Right Kidney: 12.2 x 5.0 x 4.8 cm Pancreas: Obscured by bowel gas Liver: Increased attenuation, decreased visualization of vessels suggestive of fatty infiltrate Gallbladder: tiny dependant echogenic foci, no wall thickening Evidence for sonographic Pate's sign: no CBD: wnl Right Kidney: lobular contour IMPRESSION: 1. Cholelithiasis. 2. Nonspecific pattern of liver can be seen with fatty infiltration. Other etiologies including hepat itis within the differential diagnosis.
== END ==
LOC: RADUSMAIN 08:27
PROVIDERS: ATTEND Surgery
DX: K80.20 Calculus of gallbladder without cholecystitis without obstruction (principal)
CPT/HCPCS: 76705

== ENCOUNTER → 2017-02-10 | Outpatient (CLI) | payer BC ==
--- NOTE | 2017-03-06 17:07 | P.PN ---
Progress Note - Text DATE OF SERVICE: 02/10/2017 CHIEF COMPLAINT: Bariatric assessment. HISTORY OF PRESENT ILLNESS: Marii Juan is a pleasant 61 -year-old female who is status post conversion from sleeve gastrectomy to gastric bypass on 02/05. Additionally she had a laparoscopic cholecystectomy for symptom and gallstones. No reports of gaseous after reflux disease. She has been able to sleep well immediately after surgery from the severity of her reflux disease. She is passing flatus. No nausea and vomiting. Overall no problems since surgery. No signs of infection. Her blood sugar glucose are under well control. She has been discontinued off her oral hypoglycemics. At her 5 feet 3-1/2 inches, her highest weight was 307 pounds. Today she comes in weighing 212 pounds. She has lost 9 pounds in 2 weeks. She has maintained an 95 pounds weight loss, lifetime. Her ideal body is 140 pounds. She has achieved 57% excess weight loss. Body mass index is reduced from 53.6 down to 37.0. PHYSICAL EXAM: VITAL SIGNS: 5 feet 3-1/2, 212 pounds. Body mass index is 37.0 Vital Signs Temp 98.2 F 02/10/17 15:06 Pulse 82 02/10/17 15:06 Resp BP 133/80 02/10/17 15:06 Pulse Ox GENERAL: Well-developed female no acute distress. HEENT: No scleral icterus. Extraocular movements grossly intact. Moist buccal mucosa. NECK: Supple without lymphadenopathy. CHEST: Nonlabored respirations. Equal excursions. CARDIOVASCULAR: Regular rate and rhythm. ABDOMEN: Soft, nontender, nondistended. Incisions clean dry and intact. No signs of infection along the left upper quadrant incision. MUSCULOSKELETAL: No clubbing, cyanosis, or edema. NEURO: No focal or lateralizing signs. Cranial nerves II through XII grossly within normal limits. PSYCH: Appropriate affect. Alert and oriented to person, place, and time. SKIN: Well perfused. Good skin turgor. ASSESSMENT: 1. Morbid obesity due to excess calories. 2. Body mass index reduced from 53.6 down to 37.0. 3. History of status post sleeve gastrectomy. 4. Sleeve gastrectomy with mechanical complications. 5. Obstructive sleep apnea, untreated. 6. Diabetes type 2, not insulin-dependent. 7. Essential hypertension. 8. Osteoarthritis. 9. Asthma. 10. History postoperative nausea and vomiting. 11. Iron deficiency anemia. 12. Right upper quadrant abdominal pain, resolved. 13. Dietary surveillance and counseling. 14. Gastroesophageal reflux disease, resolved. 15. Status post gastric bypass. PLAN: 1. She is doing extremely well since her operation. May start protein shakes. 2. No lifting for 4 pounds in 4 weeks. 3. Continue with omeprazole for pouch care. 4. No multivitamins for 4 weeks. 5. Follow-up in 2 weeks.
== END | disposition home or self-care (01) ==
CPT/HCPCS: 97803; 99211

== ENCOUNTER → 2017-02-19 | Outpatient (CLI) | payer BC ==
[2017-02-19] MEDS: SODIUM CHLORIDE 0.9% 1,000 ML IV PRN ×2 (12:55→13:58)
[2017-02-19 13:01] VITALS: BP 145/86; PULSE 110; RESP 18; TEMP 98
== END | disposition home or self-care (01) ==
LOC: PROCWHC3 12:33
PROVIDERS: ATTEND Surgery Plastic and Reconstructive Surgery
DX: E86.0 Dehydration (principal)
CPT/HCPCS: 96360; 96361

== ENCOUNTER → 2017-02-24 | Outpatient (CLI) | payer BC ==
[2017-02-24 16:12] VITALS: BP 155/86; PULSE 109; TEMP 97.5; BMI 35.5
[2017-02-24 17:48] LABS: Anisocytosis Slight; CH 28.8; CHCM 33.3; HCT 38.8 % (34.0-46.0); HDW 2.74; HGB 12.3 gm/dL (11.4-16.0); MCH 27.6 pg (25.0-35.0); MCHC 31.8 g/dL (31.0-37.0); MCV 86.8 fL (80.0-100.0); Mean Platelet Volume 6.8; RBC 4.47 m/uL (3.80-5.40); RDW 17.4 % (11.5-15.5); WBC 7.5 k/uL (3.8-10.6)
[2017-02-24 17:56] LABS: INR 1.2 (<1.2); Partial Thromboplastin Time 23.3 sec (22.0-30.0); Prothrombin Time 11.5 sec (9.0-12.0)
[2017-02-24 18:09] LABS: ALT 33 U/L (9-52); AST 18 U/L (14-36); Alkaline Phosphatase 61 U/L (38-126); Anion Gap 10 mmol/L; Blood Urea Nitrogen 15 mg/dL (7-17); Calcium 9.7 mg/dL (8.4-10.2); Carbon Dioxide 23 mmol/L (22-30); Chloride 107 mmol/L (98-107); Cholesterol 127 mg/dL (<200); Glucose 163 mg/dL (74-99); HDL Cholesterol 58 mg/dL (40-60); Magnesium 1.4 mg/dL (1.6-2.3); Non-African American GFR(MDRD) >60 (>60 ml/min/1.73 sqM); Phosphorus 3.2 mg/dL (2.5-4.5); Potassium 4.1 mmol/L (3.5-5.1); Sodium 140 mmol/L (137-145); Total Bilirubin 0.3 mg/dL (0.2-1.3); Total Protein 7.7 g/dL (6.3-8.2)
[2017-02-24 18:56] LABS: Vitamin B12 839 pg/mL (239-931)
[2017-02-24 20:00] LABS: Hemoglobin A1C 6.5 % (4.2-6.1)
[2017-02-25 00:54] LABS: Iron Saturation 21.85 (12.00-45.00); Iron(FE) 66 ug/dL (50-170); Total Iron Binding Capacity 302 ug/dL (228-460)
[2017-03-03 19:18] LABS: Selenium 100 mcg/L (63-160)
--- NOTE | 2017-03-07 18:24 | P.PN ---
Progress Note - Text DATE OF SERVICE: 02/24/2017 CHIEF COMPLAINT: Follow up gastric bypass. HISTORY OF PRESENT ILLNESS: Marii Juan is a pleasant 61 -year-old female who is status post conversion from sleeve gastrectomy to gastric bypass on 02/05. She reports feeling well. She was also on metformin. She is not taking insulin. Her blood sugars has been between 176-214. Her reflux disease is completely resolved. No reports of fevers or chills. She is feeling well. At her 5 feet 3-1/2 inches, her highest weight was 307 pounds. Today she comes in weighing 203 pounds. She has lost 8 pounds in 2 weeks. She has maintained an 95 pounds weight loss, lifetime. Her ideal body is 140 pounds. She has achieved 62% excess weight loss. Body mass index is reduced from 53.6 down to 35.6. PHYSICAL EXAM: VITAL SIGNS: 5 feet 3-1/2, 203 pounds. Body mass index is 35.6. Vital Signs Temp 97.5 F L 02/24/17 16:09 Pulse 109 H 02/24/17 16:09 Resp BP 155/86 02/24/17 16:09 Pulse Ox GENERAL: Well-developed female no acute distress. HEENT: No scleral icterus. Extraocular movements grossly intact. Moist buccal mucosa. NECK: Supple without lymphadenopathy. CHEST: Nonlabored respirations. Equal excursions. CARDIOVASCULAR: Tachycardic. 2+ radial pulses. ABDOMEN: Soft, nontender, nondistended. Incisions have granulated. MUSCULOSKELETAL: No clubbing, cyanosis, or edema. NEURO: No focal or lateralizing signs. Cranial nerves II through XII grossly within normal limits. PSYCH: Appropriate affect. Alert and oriented to person, place, and time. SKIN: Well perfused. Good skin turgor. ASSESSMENT: 1. Morbid obesity due to excess calories. 2. Body mass index reduced from 53.6 down to 35.6. 3. History of status post sleeve gastrectomy. 4. Sleeve gastrectomy with mechanical complications. 5. Obstructive sleep apnea, untreated. 6. Diabetes type 2, not insulin-dependent. 7. Essential hypertension. 8. Osteoarthritis. 9. Asthma. 10. History postoperative nausea and vomiting. 11. Iron deficiency anemia. 12. Right upper quadrant abdominal pain, resolved. 13. Dietary surveillance and counseling. 14. Gastroesophageal reflux disease, resolved. 15. Status post gastric bypass. PLAN: 1. Clinically she is doing well. 2. Recommend follow-up with a primary care provider regarding her diabetes. 3. She denies any complaints at this time. 4. Obtain bariatric panel. 5. Reflux disease is completely resolved. Laboratory Last Values WBC 7.5 k/uL (3.8-10.6) 02/24/17 17:20 RBC 4.47 m/uL (3.80-5.40) 02/24/17 17:20 Hgb 12.3 gm/dL (11.4-16.0) 02/24/17 17:20 Hct 38.8 % (34.0-46.0) 02/24/17 17:20 MCV 86.8 fL (80.0-100.0) 02/24/17 17:20 MCH 27.6 pg (25.0-35.0) 02/24/17 17:20 MCHC 31.8 g/dL (31.0-37.0) 02/24/17 17:20 RDW 17.4 % (11.5-15.5) H 02/24/17 17:20 Plt Count 384 k/uL (150-450) 02/24/17 17:20 Anisocytosis Slight 02/24/17 17:20 PT 11.5 sec (9.0-12.0) 02/24/17 17:20 INR 1.2 (<1.2) H 02/24/17 17:20 APTT 23.3 sec (22.0-30.0) 02/24/17 17:20 Sodium 140 mmol/L (137-145) 02/24/17 17:20 Potassium 4.1 mmol/L (3.5-5.1) 02/24/17 17:20 Chloride 107 mmol/L (98-107) 02/24/17 17:20 Carbon Dioxide 23 mmol/L (22-30) 02/24/17 17:20 Anion Gap 10 mmol/L 02/24/17 17:20 BUN 15 mg/dL (7-17) 02/24/17 17:20 Creatinine 0.90 mg/dL (0.52-1.04) 02/24/17 17:20 Est GFR (MDRD) Af Amer >60 (>60 ml/min/1.73 sqM) 02/24/17 17:20 Est GFR (MDRD) Non-Af >60 (>60 ml/min/1.73 sqM) 02/24/17 17:20 Glucose 163 mg/dL (74-99) H 02/24/17 17:[address] Glu mg/dL 140 mg/dL 02/24/17 17:20 Hemoglobin A1c 6.5 % (4.2-6.1) H 02/24/17 17:20 Calcium 9.7 mg/dL (8.4-10.2) 02/24/17 17:20 Phosphorus 3.2 mg/dL (2.5-4.5) 02/24/17 17:20 Magnesium 1.4 mg/dL (1.6-2.3) L 02/24/17 17:20 Iron 66 ug/dL (50-170) 02/24/17 17:20 TIBC 302 ug/dL (228-460) 02/24/17 17:20 Iron Saturation 21.85 (12.00-45.00) 02/24/17 17:20 Ferritin 474.6 ng/mL (10.0-291.0) H 02/24/17 17:20 Total Bilirubin 0.3 mg/dL (0.2-1.3) 02/24/17 17:20 AST 18 U/L (14-36) 02/24/17 17:20 ALT 33 U/L (9-52) 02/24/17 17:20 Alkaline Phosphatase 61 U/L (38-126) 02/24/17 17:20 Total Protein 7.7 g/dL (6.3-8.2) 02/24/17 17:20 Albumin 4.0 g/dL (3.5-5.0) 02/24/17 17:20 Prealbumin 18.0 mg/dL (18.0-42.0) 02/24/17 17:20 Triglycerides 161 mg/dL (<150) H 02/24/17 17:20 Cholesterol 127 mg/dL (<200) 02/24/17 17:20 LDL Cholesterol, Calc 37 mg/dL (0-99) 02/24/17 17:20 HDL Cholesterol 58 mg/dL (40-60) 02/24/17 17:20 Vitamin A 51 ug/dL (38-106) 02/24/17 17:20 Vitamin B1 51 ug/L (38-122) 02/24/17 17:20 Vitamin B12 839 pg/mL (239-931) 02/24/17 17:20 Vitamin D 25-Hydroxy 43.9 ng/mL (30.0-100.0) 02/24/17 17:20 Folate >24.0 ng/mL 02/24/17 17:20 TSH 0.474 mIU/L (0.465-4.680) 02/24/17 17:20 PTH Intact 23.3 pg/mL (14.0-72.0) 02/24/17 17:20 Copper 1596 ug/L (810-1990) 02/24/17 17:20 Selenium 100 mcg/L (63-160) 02/24/17 17:20 Zinc 63 ug/dL (60-130) 02/24/17 17:20
== END | disposition home or self-care (01) ==
LOC: BARWHC3 15:30
PROVIDERS: ATTEND Surgery Plastic and Reconstructive Surgery
DX: Z48.815 Encounter for surgical aftercare following surgery on the digestive system (principal); E66.01 Morbid (severe) obesity due to excess calories; G47.33 Obstructive sleep apnea (adult) (pediatric); E11.9 Type 2 diabetes mellitus without complications; I10 Essential (primary) hypertension; M25.50 Pain in unspecified joint; E21.1 Secondary hyperparathyroidism, not elsewhere classified; E89.1 Postprocedural hypoinsulinemia; K90.89 Other intestinal malabsorption; E44.0 Moderate protein-calorie malnutrition; E55.9 Vitamin D deficiency, unspecified; K74.1 Hepatic sclerosis; N19 Unspecified kidney failure; K50.90 Crohn's disease, unspecified, without complications; J45.909 Unspecified asthma, uncomplicated; D50.9 Iron deficiency anemia, unspecified; Z98.890 Other specified postprocedural states; Z68.35 Body mass index [BMI] 35.0-35.9, adult
CPT/HCPCS: 36415; 80053; 80061; 82306; 82525; 82607; 82728; 82746; 83036; 83540; 83550; 83735; 83970; 84100; 84134; 84255; 84425; 84443; 84590; 84630; 85027; 85610; 85730; 97802; 99211

== ENCOUNTER → 2017-04-14 | Outpatient (CLI) | payer BC ==
[2017-04-14 15:55] VITALS: BMI 33.6
[2017-04-14 16:18] VITALS: BP 163/62; PULSE 70; RESP 16; TEMP 97.5
--- NOTE | 2017-06-07 20:29 | P.PN ---
Subjective Progress Note Date: 04/14/17 DATE OF SERVICE: 04/14/2017 CHIEF COMPLAINT: Follow up gastric bypass. HISTORY OF PRESENT ILLNESS: Marii Juan is a pleasant 61 -year-old female who is status post conversion from sleeve gastrectomy to gastric bypass on 02/05. She is off all diabetic medications. Her blood sugars averaging between 120-140. She is tolerating progress including mash potatoes. She reports finally sleeping well. Obstructive sleep apnea is resolved. Gastroesophageal reflux disease is completely resolved. At her 5 feet 3-1/2 inches, her highest weight was 307 pounds. Today she comes in weighing 193 pounds. She has lost 11 pounds in 5 weeks. She has maintained an 114 pounds weight loss, lifetime. Her previous lowest weight was 187 pounds with her sleeve gastrectomy. Her ideal body is 140 pounds. She has achieved 69 % excess weight loss. Body mass index is reduced from 53.6 down to 33.7. PHYSICAL EXAM: VITAL SIGNS: 5 feet 3-1/2, 193 pounds. Body mass index is 35.6. Vital Signs Temp 97.5 F L 04/14/17 16:16 Pulse 70 04/14/17 16:16 Resp 16 04/14/17 16:16 BP 163/62 04/14/17 16:16 Pulse Ox GENERAL: Well-developed female no acute distress. HEENT: No scleral icterus. Extraocular movements grossly intact. Moist buccal mucosa. NECK: Supple without lymphadenopathy. CHEST: Nonlabored respirations. Equal excursions. CARDIOVASCULAR: Regular rate regular rhythm. 2+ radial pulses. ABDOMEN: Soft, nontender, nondistended. Incisions have granulated. MUSCULOSKELETAL: No clubbing, cyanosis, or edema. NEURO: No focal or lateralizing signs. Cranial nerves II through XII grossly within normal limits. PSYCH: Appropriate affect. Alert and oriented to person, place, and time. SKIN: Well perfused. Good skin turgor. ASSESSMENT: 1. Morbid obesity due to excess calories. 2. Body mass index reduced from 53.6 down to 33.7. 3. History of status post sleeve gastrectomy. 4. Sleeve gastrectomy with mechanical complications. 5. Obstructive sleep apnea, untreated. 6. Diabetes type 2, not insulin-dependent. 7. Essential hypertension. 8. Osteoarthritis. 9. Asthma. 10. History postoperative nausea and vomiting. 11. Iron deficiency anemia. 12. Right upper quadrant abdominal pain, resolved. 13. Dietary surveillance and counseling. 14. Gastroesophageal reflux disease, resolved. 15. Status post gastric bypass. 16. Hypomagnesemia. PLAN: 1. Recommend protein intake over 75 g daily. 2. Recommend multivitamin. 3. Recommend magnesium supplement. Objective - Vital Signs Vital signs: Vital Signs Temp 97.5 F L 04/14/17 16:16 Pulse 70 04/14/17 16:16 Resp 16 04/14/17 16:16 BP 163/62 04/14/17 16:16 Pulse Ox Intake & Output 04/13/17 04/14/17 04/14/17 18:59 06:59 18:59 Weight 87.543 kg
== END ==
LOC: BARWHC3 14:56
PROVIDERS: ATTEND Surgery Plastic and Reconstructive Surgery
DX: Z09 Encounter for follow-up examination after completed treatment for conditions other than malignant neoplasm (principal); E66.01 Morbid (severe) obesity due to excess calories; G47.33 Obstructive sleep apnea (adult) (pediatric); E11.9 Type 2 diabetes mellitus without complications; I10 Essential (primary) hypertension; M19.90 Unspecified osteoarthritis, unspecified site; J45.909 Unspecified asthma, uncomplicated; D50.9 Iron deficiency anemia, unspecified; E83.42 Hypomagnesemia; Z68.33 Body mass index [BMI] 33.0-33.9, adult; Z71.3 Dietary counseling and surveillance; Z98.84 Bariatric surgery status
CPT/HCPCS: 97803; 99211

== ENCOUNTER → 2017-04-28 | Outpatient (CLI) | payer BC ==
[2017-04-28 10:12] LABS: CH 29.7; CHCM 33.2; HCT 39.8 % (34.0-46.0); HDW 2.99; MCH 29.2 pg (25.0-35.0); MCHC 32.6 g/dL (31.0-37.0); MCV 89.6 fL (80.0-100.0); Mean Platelet Volume 6.8; RBC 4.44 m/uL (3.80-5.40); RDW 14.7 % (11.5-15.5); WBC 7.3 k/uL (3.8-10.6)
[2017-04-28 10:14] LABS: INR 1.1 (<1.2); Partial Thromboplastin Time 23.6 sec (22.0-30.0); Prothrombin Time 10.8 sec (9.0-12.0)
[2017-04-28 10:28] LABS: ALT 25 U/L (9-52); AST 17 U/L (14-36); Alkaline Phosphatase 60 U/L (38-126); Anion Gap 9 mmol/L; Blood Urea Nitrogen 20 mg/dL (7-17); Calcium 10.1 mg/dL (8.4-10.2); Carbon Dioxide 27 mmol/L (22-30); Chloride 106 mmol/L (98-107); Cholesterol 157 mg/dL (<200); Glucose 114 mg/dL (74-99); HDL Cholesterol 70 mg/dL (40-60); Magnesium 1.5 mg/dL (1.6-2.3); Non-African American GFR(MDRD) 59 (>60 ml/min/1.73 sqM); Phosphorus 2.7 mg/dL (2.5-4.5); Potassium 4.2 mmol/L (3.5-5.1); Sodium 142 mmol/L (137-145); Total Bilirubin 0.3 mg/dL (0.2-1.3); Total Protein 7.7 g/dL (6.3-8.2)
[2017-04-28 15:57] LABS: Iron Saturation 24.83 (12.00-45.00); Iron(FE) 71 ug/dL (50-170); Total Iron Binding Capacity 286 ug/dL (228-460)
[2017-05-04 18:31] LABS: Selenium 122 mcg/L (63-160)
== END | disposition home or self-care (01) ==
LOC: LABWHC1 08:14
PROVIDERS: ATTEND Surgery Plastic and Reconstructive Surgery
DX: E66.01 Morbid (severe) obesity due to excess calories (principal); E21.1 Secondary hyperparathyroidism, not elsewhere classified; E89.1 Postprocedural hypoinsulinemia; D50.9 Iron deficiency anemia, unspecified; K90.9 Intestinal malabsorption, unspecified; E55.9 Vitamin D deficiency, unspecified; K74.1 Hepatic sclerosis; N19 Unspecified kidney failure; K50.90 Crohn's disease, unspecified, without complications
CPT/HCPCS: 36415; 80053; 80061; 82306; 82525; 82607; 82728; 82746; 83036; 83540; 83550; 83735; 83970; 84100; 84134; 84255; 84425; 84443; 84590; 84630; 85027; 85610; 85730

== ENCOUNTER → 2017-05-19 | Outpatient (CLI) | payer BC ==
[2017-05-19 16:02] VITALS: BP 167/80; PULSE 86; RESP 16; TEMP 97.7; BMI 31.5
--- NOTE | 2017-07-05 22:01 | P.PN ---
Subjective Progress Note Date: 05/19/17 DATE OF SERVICE: 05/19/2017 CHIEF COMPLAINT: Follow up gastric bypass. HISTORY OF PRESENT ILLNESS: Marii Juan is a pleasant 62-year-old female who is status post conversion from sleeve gastrectomy to gastric bypass on 02/05. She is 3 months out. No further reports of gastroesophageal reflux disease. She reports new onset lactose intolerance. She is belching more. She reports occasional nausea and vomiting when eating too fast. She has no troubles of texture of chicken. No troubles with drinking liquids or eating ground foods. She denies any trouble with eating shrimp. At her 5 feet 3-1/2 inches, her highest weight was 307 pounds. Today she comes in weighing 181 pounds. She has lost 23 pounds in 3 months. She has maintained 126 pounds weight loss, lifetime. She has lost 12 pounds in 3 months. Her ideal body is 140 pounds. She has achieved 76% excess weight loss. Body mass index is reduced from 53.6 down to 31.6. PAST MEDICAL HISTORY: 1. Morbid obesity. 2. Diabetes type 2, [id number]. 3. Hypertension. 4. Depression. 5. Hyperlipidemia. 6. Gastroesophageal reflux disease. 7. Magnesium deficiency. 8. Diabetic neuropathy. 9. Vitamin D deficiency. 10. Asthma. 11. Postoperative nausea and vomiting. 12. History of difficult intubation. PAST SURGICAL HISTORY: 1. Sleeve gastrectomy. 2. . 3. Hysterectomy. 4. Abdominoplasty. 5. Tendon release. 6. Blepharoplasty. 7. Upper endoscopy. 8. Status post gastric bypass, 02/2017 MEDICATIONS: 1. Glucophage. 2. Norvasc. 3. Effexor-XR. 4. Restoril. 5. Protonix. 6. Multivitamin. 7. Magnesium oxide. 8. Cozaar. 9. Vitamin D. ALLERGIES: CODEINE. SOCIAL HISTORY: Remote history of tobacco use. FAMILY HISTORY: Pertinent for morbid obesity. REVIEW OF SYSTEMS: CONSTITUTIONAL: At her 5 feet 3-1/2 inches, her highest weight was 307 pounds. Today she comes in weighing 181 pounds. She has maintained an 126 pounds weight loss. Her ideal body is 140 pounds. She has achieved 76% excess weight loss. Body mass index ia reduced from 53.6 down to 33.6. GASTROINTESTINAL: No dumping. Gastroesophageal reflux disease resolved. HEENT: Denies any troubles with vision or hearing. Does deny dysphagia. ENDOCRINE: History of diabetes, type II. No reports of thyroid disorder. RESPIRATORY: Sleep apnea resolved. Asthma improved. CARDIOVASCULAR: History of hypertension. Denies any recent heart attack. MUSCULOSKELETAL: History of diffuse joint arthritis including of the bilateral hips and knees. NEURO: Prior history of head injury with troubles with memory. Otherwise, no reports of seizure disorders. PSYCH: History of depression without suicidal ideation. HEMATOLOGIC: Denies any easy bruising or bleeding or personal history of DVTs. PHYSICAL EXAM: VITAL SIGNS: 5 feet 3-1/2, 181 pounds. Body mass index is 31.6 Vital Signs Temp 97.7 F 05/19/17 16:00 Pulse 86 05/19/17 16:00 Resp 16 05/19/17 16:00 BP 167/80 05/19/17 16:00 Pulse Ox GENERAL: Well-developed female no acute distress. HEENT: No scleral icterus. Extraocular movements grossly intact. Moist buccal mucosa. NECK: Supple without lymphadenopathy. CHEST: Nonlabored respirations. Equal excursions. CARDIOVASCULAR: Regular rate regular rhythm. 2+ radial pulses. ABDOMEN: Soft, nontender, nondistended. Incisions have granulated. MUSCULOSKELETAL: No clubbing, cyanosis, or edema. NEURO: No focal or lateralizing signs. Cranial nerves II through XII grossly within normal limits. PSYCH: Appropriate affect. Alert and oriented to person, place, and time. SKIN: Well perfused. Good skin turgor. ASSESSMENT: 1. Morbid obesity due to excess calories. 2. Body mass index reduced from 53.6 down to 31.6. 3. Status post gastric bypass. 4. Gastroesophageal reflux disease resolved. 5. Diabetes type II, [id number]. PLAN: 1. Recommend bariatric labs that she is 3 months out. 2. She has symptoms suspicious of dysphagia and would recommend EGD. 3. Recommend adjustment of medications to address diabetes.
== END | disposition home or self-care (01) ==
LOC: BARWHC3 15:00
PROVIDERS: ATTEND Surgery Plastic and Reconstructive Surgery
DX: Z48.815 Encounter for surgical aftercare following surgery on the digestive system (principal); E66.01 Morbid (severe) obesity due to excess calories; J45.909 Unspecified asthma, uncomplicated; F32.9 Major depressive disorder, single episode, unspecified; E11.40 Type 2 diabetes mellitus with diabetic neuropathy, unspecified; K21.9 Gastro-esophageal reflux disease without esophagitis; Z68.31 Body mass index [BMI] 31.0-31.9, adult; Z79.84 Long term (current) use of oral hypoglycemic drugs; Z79.899 Other long term (current) drug therapy; Z88.5 Allergy status to narcotic agent; Z87.891 Personal history of nicotine dependence; Z98.84 Bariatric surgery status; Z98.890 Other specified postprocedural states
CPT/HCPCS: 99211

== ENCOUNTER → 2017-06-23 | Outpatient (CLI) | payer BC ==
[2017-06-23 15:34] VITALS: BP 133/71; PULSE 70; RESP 16; TEMP 98.2; BMI 30.9
[2017-06-23 17:34] LABS: HCT 39.9 % (34.0-46.0); MCHC 32.7 g/dL (31.0-37.0); MCV 91.7 fL (80.0-100.0); Mean Platelet Volume 7.2; Platelet Count 350 k/uL (150-450); RBC 4.35 m/uL (3.80-5.40); RDW 14.5 % (11.5-15.5); WBC 8.3 k/uL (3.8-10.6)
[2017-06-23 17:42] LABS: INR 1.1 (<1.2); Partial Thromboplastin Time 22.8 sec (22.0-30.0); Prothrombin Time 10.4 sec (9.0-12.0)
[2017-06-23 18:00] LABS: ALT 36 U/L (9-52); AST 23 U/L (14-36); Alkaline Phosphatase 69 U/L (38-126); Anion Gap 9 mmol/L; Blood Urea Nitrogen 19 mg/dL (7-17); Carbon Dioxide 28 mmol/L (22-30); Chloride 103 mmol/L (98-107); Cholesterol 181 mg/dL (<200); Glucose 117 mg/dL (74-99); HDL Cholesterol 76 mg/dL (40-60); LDL Cholesterol,Calculated 75 mg/dL (0-99); Phosphorus 2.5 mg/dL (2.5-4.5); Potassium 4.7 mmol/L (3.5-5.1); Sodium 140 mmol/L (137-145); Total Bilirubin 0.3 mg/dL (0.2-1.3); Triglycerides 152 mg/dL (<150)
[2017-06-24 01:09] LABS: Iron Saturation 19.42 (12.00-45.00)
[2017-06-24 01:18] LABS: Folate, Serum >24.0 ng/mL
[2017-06-24 04:36] LABS: Hemoglobin A1C 6.4 % (4.0-6.0)
[2017-06-28 06:07] LABS: Vitamin B1 69 ug/L (38-122)
[2017-06-28 09:36] LABS: Vitamin A 57 ug/dL (38-106)
--- NOTE | 2017-08-08 12:20 | P.PN ---
Subjective Progress Note Date: 06/23/17 DATE OF SERVICE: 06/23/2017 CHIEF COMPLAINT: Follow up gastric bypass. HISTORY OF PRESENT ILLNESS: Marii Juan is a pleasant 62-year-old female who is status post conversion from sleeve gastrectomy to gastric bypass on 02/05. She reports decreased intake of fluids and only 3 proximal water day. She is part intermittent dysphagia to solid foods along the epigastrium. She reports increased burping. No reports of recurrent gastroesophageal reflux disease or sleep apnea. She reports being gassy. At her 5 feet 3-1/2 inches, her highest weight was 307 pounds. Today she comes in weighing 177 pounds. She has lost 4 pounds in 1 month. She has maintained 130 pounds weight loss, lifetime. Her ideal body is 140 pounds. She has achieved 78% excess weight loss. Body mass index is reduced from 53.6 down to 30.9. PAST MEDICAL HISTORY: 1. Morbid obesity. 2. Diabetes type 2, [id number]. 3. Hypertension. 4. Depression. 5. Hyperlipidemia. 6. Gastroesophageal reflux disease. 7. Magnesium deficiency. 8. Diabetic neuropathy. 9. Vitamin D deficiency. 10. Asthma. 11. Postoperative nausea and vomiting. 12. History of difficult intubation. PAST SURGICAL HISTORY: 1. Sleeve gastrectomy. 2. . 3. Hysterectomy. 4. Abdominoplasty. 5. Tendon release. 6. Blepharoplasty. 7. Upper endoscopy. 8. Status post gastric bypass, 02/2017 MEDICATIONS: 1. Glucophage. 2. Norvasc. 3. Effexor-XR. 4. Restoril. 5. Multivitamin. 6. Magnesium oxide. 7. Cozaar. 8. Calcium with Vitamin D. 9. Zinc 10. Vitamin B12 ALLERGIES: CODEINE. SOCIAL HISTORY: Remote history of tobacco use. FAMILY HISTORY: Pertinent for morbid obesity. REVIEW OF SYSTEMS: CONSTITUTIONAL: At her 5 feet 3-1/2 inches, her highest weight was 307 pounds. Today she comes in weighing 177 pounds. She has lost 4 pounds in 1 month. She has maintained 130 pounds weight loss, lifetime. Her ideal body is 140 pounds. She has achieved 78% excess weight loss. Body mass index is reduced from 53.6 down to 30.9. GASTROINTESTINAL: No dumping. Gastroesophageal reflux disease resolved. HEENT: Denies any troubles with vision or hearing. Has dysphagia. ENDOCRINE: History of diabetes, type II. No reports of thyroid disorder. RESPIRATORY: Sleep apnea resolved. Asthma improved. CARDIOVASCULAR: History of hypertension. Denies any recent heart attack. MUSCULOSKELETAL: History of diffuse joint arthritis including of the bilateral hips and knees. NEURO: Prior history of head injury with troubles with memory. Otherwise, no reports of seizure disorders. PSYCH: History of depression without suicidal ideation. HEMATOLOGIC: Denies any easy bruising or bleeding or personal history of DVTs. SKIN: No rash. No skin cancer. PHYSICAL EXAM: VITAL SIGNS: 5 feet 3-1/2, 177 pounds. Body mass index is 30.9 Vital Signs Temp 98.2 F 06/23/17 15:31 Pulse 70 06/23/17 15:31 Resp 16 06/23/17 15:31 BP 133/71 06/23/17 15:31 Pulse Ox GENERAL: Well-developed female no acute distress. HEENT: No scleral icterus. Extraocular movements grossly intact. Moist buccal mucosa. NECK: Supple without lymphadenopathy. CHEST: Nonlabored respirations. Equal excursions. CARDIOVASCULAR: Regular rate regular rhythm. 2+ radial pulses. ABDOMEN: Soft, nontender, nondistended. No incisions along the bariatric sites. MUSCULOSKELETAL: No clubbing, cyanosis, or edema. NEURO: No focal or lateralizing signs. Cranial nerves II through XII grossly within normal limits. PSYCH: Appropriate affect. Alert and oriented to person, place, and time. SKIN: Well perfused. Good skin turgor. ASSESSMENT: 1. Morbid obesity due to excess calories. 2. Body mass index reduced from 53.6 down to 30.9. 3. Status post gastric bypass. 4. Gastroesophageal reflux disease resolved. 5. Diabetes type II, [id number]-[id number]. 6. Hypertensive heart disease. PLAN: 1. Recommend bariatric labs. 2. Recommend upper endoscopy with balloon dilatation. 3. Recommend increase fluid intake 64 ounces daily. Laboratory Last Values WBC 8.3 k/uL (3.8-10.6) 06/23/17 16:51 RBC 4.35 m/uL (3.80-5.40) 06/23/17 16:51 Hgb 13.0 gm/dL (11.4-16.0) 06/23/17 16:51 Hct 39.9 % (34.0-46.0) 06/23/17 16:51 MCV 91.7 fL (80.0-100.0) 06/23/17 16:51 MCH 30.0 pg (25.0-35.0) 06/23/17 16:51 MCHC 32.7 g/dL (31.0-37.0) 06/23/17 16:51 RDW 14.5 % (11.5-15.5) 06/23/17 16:51 Plt Count 350 k/uL (150-450) 06/23/17 16:51 PT 10.4 sec (9.0-12.0) 06/23/17 16:51 INR 1.1 (<1.2) 06/23/17 16:51 APTT 22.8 sec (22.0-30.0) 06/23/17 16:51 Sodium 140 mmol/L (137-145) 06/23/17 16:51 Potassium 4.7 mmol/L (3.5-5.1) 06/23/17 16:51 Chloride 103 mmol/L (98-107) 06/23/17 16:51 Carbon Dioxide 28 mmol/L (22-30) 06/23/17 16:51 Anion Gap 9 mmol/L 06/23/17 16:51 BUN 19 mg/dL (7-17) H 06/23/17 16:51 Creatinine 0.90 mg/dL (0.52-1.04) 06/23/17 16:51 Est GFR (MDRD) Af Amer >60 (>60 ml/min/1.73 sqM) 06/23/17 16:51 Est GFR (MDRD) Non-Af >60 (>60 ml/min/1.73 sqM) 06/23/17 16:51 Glucose 117 mg/dL (74-99) H 06/23/17 16:[address] Glu mg/dL 137 06/23/17 16:51 Hemoglobin A1c 6.4 % (4.0-6.0) H 06/23/17 16:51 Calcium 10.0 mg/dL (8.4-10.2) 06/23/17 16:51 Phosphorus 2.5 mg/dL (2.5-4.5) 06/23/17 16:51 Magnesium 1.6 mg/dL (1.6-2.3) 06/23/17 16:51 Iron 60 ug/dL (50-170) 06/23/17 16:51 TIBC 309 ug/dL (228-460) 06/23/17 16:51 Iron Saturation 19.42 (12.00-45.00) 06/23/17 16:51 Ferritin 142.7 ng/mL (10.0-291.0) 06/23/17 16:51 Total Bilirubin 0.3 mg/dL (0.2-1.3) 06/23/17 16:51 AST 23 U/L (14-36) 06/23/17 16:51 ALT 36 U/L (9-52) 06/23/17 16:51 Alkaline Phosphatase 69 U/L (38-126) 06/23/17 16:51 Total Protein 8.0 g/dL (6.3-8.2) 06/23/17 16:51 Albumin 4.0 g/dL (3.5-5.0) 06/23/17 16:51 Prealbumin 20.0 mg/dL (18.0-42.0) 06/23/17 16:51 Triglycerides 152 mg/dL (<150) H 06/23/17 16:51 Cholesterol 181 mg/dL (<200) 06/23/17 16:51 LDL Cholesterol, Calc 75 mg/dL (0-99) 06/23/17 16:51 HDL Cholesterol 76 mg/dL (40-60) H 06/23/17 16:51 Vitamin A 57 ug/dL (38-106) 06/23/17 16:51 Vitamin B1 69 ug/L (38-122) 06/23/17 16:51 Vitamin B12 602.0 pg/mL (200.0-944.0) 06/23/17 16:51 Vitamin D 25-Hydroxy 30.2 ng/mL (30.0-100.0) 06/23/17 16:51 Folate >24.0 ng/mL 06/23/17 16:51 TSH 0.841 mIU/L (0.465-4.680) 06/23/17 16:51 PTH Intact 26.0 pg/mL (14.0-72.0) 06/23/17 16:51 Copper 1145 ug/L (810-1990) 06/23/17 16:51 Selenium 160 mcg/L (63-160) 06/23/17 16:51 Zinc 68 ug/dL (60-130) 06/23/17 16:51 Objective - Vital Signs Vital signs: Vital Signs Temp 98.2 F 06/23/17 15:31 Pulse 70 06/23/17 15:31 Resp 16 06/23/17 15:31 BP 133/71 06/23/17 15:31 Pulse Ox Intake & Output 06/22/17 06/23/17 06/23/17 18:59 06:59 18:59 Weight 80.371 kg - Labs CBC & Chem 7: 06/23/17 16:51 06/23/17 16:51
== END | disposition home or self-care (01) ==
LOC: BARWHC3 14:20
PROVIDERS: ATTEND Surgery Plastic and Reconstructive Surgery
DX: Z48.815 Encounter for surgical aftercare following surgery on the digestive system (principal); E66.01 Morbid (severe) obesity due to excess calories; E11.9 Type 2 diabetes mellitus without complications; I11.9 Hypertensive heart disease without heart failure; F32.9 Major depressive disorder, single episode, unspecified; E21.1 Secondary hyperparathyroidism, not elsewhere classified; E89.1 Postprocedural hypoinsulinemia; D50.9 Iron deficiency anemia, unspecified; K90.9 Intestinal malabsorption, unspecified; E55.9 Vitamin D deficiency, unspecified; K76.9 Liver disease, unspecified; N19 Unspecified kidney failure; K50.90 Crohn's disease, unspecified, without complications; Z68.30 Body mass index [BMI] 30.0-30.9, adult; Z88.5 Allergy status to narcotic agent; Z79.899 Other long term (current) drug therapy; Z87.891 Personal history of nicotine dependence; Z98.84 Bariatric surgery status
CPT/HCPCS: 80053; 80061; 82306; 82525; 82607; 82728; 82746; 83036; 83540; 83550; 83735; 83970; 84100; 84134; 84255; 84425; 84443; 84590; 84630; 85027; 85610; 85730; 99211

== ENCOUNTER 2017-07-08 11:54 | Day surgery (SDC) | payer BC ==
[2017-07-07 08:45] VITALS: BMI 29.5
--- NOTE | 2017-07-08 11:06 | P.GSHP ---
History of Present Illness H&P Date: 07/08/17 CHIEF COMPLAINT: GERD and colon screen HISTORY OF PRESENT ILLNESS: The patient is a 62-year-old female who presents with gastroesophageal reflux disease and need for colon screen. Upper and lower endoscopy were offered for further evaluation and management. PAST MEDICAL HISTORY: Please see list. PAST SURGICAL HISTORY: Please see list. MEDICATIONS: Please see list. ALLERGIES: Please see list. SOCIAL HISTORY: No illicit drug use FAMILY HISTORY: No reports of Crohn disease or ulcerative colitis. REVIEW OF ORGAN SYSTEMS: CONSTITUTIONAL: No reports of fevers or chills. GI: Denies any blood in stools or constipation. PHYSICAL EXAM: VITAL SIGNS: Stable GENERAL: Well-developed pleasant in no acute distress. HEENT: No scleral icterus. Extraocular movements grossly intact. Moist buccal mucosa. NECK: Supple without lymphadenopathy. CHEST: Unlabored respirations. Equal bilateral excursions. CARDIOVASCULAR: Regular rate and rhythm. Distal 2+ pulses. ABDOMEN: Soft, nondistended. MUSCULOSKELETAL: No clubbing, cyanosis, or edema. ASSESSMENT: 1. Gastroesophageal reflux disease 2. Colon screen. PLAN: 1. Recommend proceeding with an upper and lower endoscopy Past Medical History Past Medical History: Asthma, Diabetes Mellitus, Hypertension Additional Past Medical History / Comment(s): tendonitis right arm; History of Any Multi-Drug Resistant Organisms: None Reported Past Surgical History: Bariatric Surgery, Section, Hysterectomy, Orthopedic Surgery, Tonsillectomy Additional Past Surgical History / Comment(s): hx gastric sleeve 2009, abdominalplasty, tendon surgery brad arms, brad cataracts Past Anesthesia/Blood Transfusion Reactions: Previous Problems w/ Anesthesia, Postoperative Nausea & Vomiting (PONV) Additional Past Anesthesia/Blood Transfusion Reaction / Comment(s): difficult intubation d/t airway "pt states airway small" and she has bony ridges both mandibular and maxillary saulo. motion sickness as child, PONV with general anesthesiia Smoking Status: Former smoker - Past Family History Mother Family Medical History: No Reported History Father Family Medical History: No Reported History Medications and Allergies Home Medications Medication Instructions Recorded Confirmed Type Losartan Potassium [Cozaar] 100 mg PO HS 05/12/16 07/07/17 History Temazepam [Restoril] 30 mg PO HS 05/12/16 07/07/17 History Magnesium Oxide [Magox 400] 800 mg PO HS 10/15/16 07/07/17 History Venlafaxine HCl [Effexor] 75 mg PO BID #60 tab 02/06/17 07/07/17 Rx Calcium Citrate/Vitamin D3 2 each PO DAILY 04/14/17 07/07/17 History [Calcitrate + Vit D Caplet] Multivitamins, Thera [Multivitamin 1 tab PO DAILY 04/14/17 07/07/17 History (formulary)] Albuterol Inhaler [Ventolin Hfa 1 - 2 puff INHALATION Q6HR PRN 07/07/17 History Inhaler] Budesonide-Formot 160-4.5 Mcg 2 puff INHALATION BID PRN 07/07/17 07/07/17 History [Symbicort 160-4.5 Mcg Inhaler] L.acidoph,Paracasei, B.lactis 1 each PO DAILY 07/07/17 07/07/17 History [Probiotic] Vitamin B-12 [place] 1 spray NASAL SA 07/07/17 07/07/17 History Zinc 50 mg PO DAILY 07/07/17 07/07/17 History amLODIPine [Norvasc] 5 mg PO DAILY 07/07/17 07/07/17 History metFORMIN HCL 1,000 mg PO BID 07/07/17 07/07/17 History Allergies Allergy/AdvReac Type Severity Reaction Status Date / Time merbromin Allergy Rash/Hives Verified 07/07/17 08:50 [From Mercurochrome] codeine AdvReac Headache Verified 06/23/17 16:14
[~2017-07-08 11:54] MED LIST: LACTATED RINGERS 1,000 ML IV SCH; LIDOCAINE 1% 20 ML VIAL (10MG/ML) FOR IV START INTRADERMA PRN
[2017-07-08 12:16] VITALS: TEMP 98.1
[2017-07-08 12:31] LABS: Glucose,Whole Blood 100 mg/dL (75-99)
[2017-07-08] MEDS ORDERED: PROPOFOL 10 MG/ML 20 ML VIAL IV ONE (13:22)
--- NOTE | 2017-07-08 13:54 | P.PCN ---
Date of Procedure: 07/08/17 Description of Procedure: PREOPERATIVE DIAGNOSIS: Colonoscopy screening. POSTOPERATIVE DIAGNOSIS: Colonoscopy screening. Diverticulosis, scattered. OPERATION: Colonoscopy to the ileocecal valve and appendiceal orifice. SURGEON: Carol Rogers MD. ANESTHESIA: MAC. INDICATIONS: The patient is a 62-year-old female who presents for colonoscopy screening. Her last colonoscopy was over 5 years ago. Benefits and risks were described and informed consent was obtained. DESCRIPTION OF PROCEDURE: The patient had undergone Gatorade, MiraLAX and Dulcolax prep. She had been brought into the operating room and laid in the left lateral decubitus position. After adequate intravenous sedation, the rectum was examined with 2% lidocaine jelly. No external hemorrhoids were encountered. The rectal tone was within normal limits. No lesions were palpated in the rectal vault. An Olympus colonoscope was advanced until the ileocecal valve and appendiceal orifice were clearly viewed. The prep was good with zisualization of the mucosal folds. The scope was removed with visualization of each mucosal fold. Scattered diverticulosis was encountered. No colonic polyps were found. No evidence of focal colitis was found. Retroflexion of the scope demonstrated grade 2 internal hemorrhoids without active bleeding or inflammation. The colon was desufflated. The patient had tolerated the procedure well. Withdrawal time was over 6 minutes. FINDINGS: Internal hemorrhoids, grade 2 No external prolapsed hemorrhoids. No arteriovenous malformations. Scattered sigmoid diverticulosis. No adenomatous polyps. No focal colitis. RECOMMENDATIONS: Lower endoscopy in 5 to 10 years, 2022, per screening guidelines
--- NOTE | 2017-07-08 13:57 | P.PCN ---
Date of Procedure: 07/08/17 Description of Procedure: PREOPERATIVE DIAGNOSIS: Dysphagia. Nausea with vomiting. Diabetes type 2. POSTOPERATIVE DIAGNOSIS: Dysphagia. Nausea with vomiting. Diabetes type 2. Gastrojejunal stricture with chronic ulcer without perforation OPERATION: Esophagogastrojejunoscopy with balloon dilatation from 12 to 20 mm. SURGEON: Carol Rogers MD ANESTHESIA: MAC. INDICATIONS: The patient is a 62-year-old female who presents with a history of dysphagia including new-onset nausea and vomiting. Benefits and risks of the procedure were described. Informed consent was obtained. DESCRIPTION: The patient was brought into the endoscopy suite and laid in the left lateral decubitus position. After a timeout was confirmed, the procedure was initiated. An Olympus gastroscope was passed along the posterior oropharynx down to the distal esophagus where the squamocolumnar junction was unremarkable. The gastric pouch was entered. A gastrojejunal stricture of 12 mm was found as the adult gastroscope was 9.5 mm in size. A Feedsky balloon dilator was placed through the scope. Final insufflation up to 20 mm was performed with a total of 2 minutes. The scope was advanced up to 60 cm from the incisors into the Yessenia limb. The mucosa of the gastrojejunal anastomosis was intact. However chronic gastrojejunal marginal ulcer was encountered. No full-thickness injury was encountered. The GI tract was desufflated. The patient tolerated the procedure well. FINDINGS: Squamocolumnar junction unremarkable at 37 cm. Stricture of approximately 12 mm encountered. Chronic gastrojejunal ulceration encountered. Successful balloon dilatation to 20 mm. Gastric pouch 3 cm. RECOMMENDATIONS: Recommend omeprazole for 2 weeks. Upper endoscopy as needed. Plan - Discharge Summary Discharge Rx Participant: No New Discharge Prescriptions: No Action Losartan Potassium [Cozaar] 100 mg PO HS Temazepam [Restoril] 30 mg PO HS Magnesium Oxide [Magox 400] 800 mg PO HS Venlafaxine HCl [Effexor] 75 mg PO BID #60 tab Multivitamins, Thera [Multivitamin (formulary)] 1 tab PO DAILY Calcium Citrate/Vitamin D3 [Calcitrate + Vit D Caplet] 2 each PO DAILY L.acidoph,Paracasei, B.lactis [Probiotic] 1 each PO DAILY Budesonide-Formot 160-4.5 Mcg [Symbicort 160-4.5 Mcg Inhaler] 2 puff INHALATION BID PRN PRN Reason: sob Albuterol Inhaler [Ventolin Hfa Inhaler] 1 - 2 puff INHALATION Q6HR PRN PRN Reason: sob amLODIPine [Norvasc] 5 mg PO DAILY metFORMIN HCL 1,000 mg PO BID Zinc 50 mg PO DAILY Vitamin B-12 [place] 1 spray NASAL SA Discharge Medication List Losartan Potassium [Cozaar] 100 mg PO HS 05/12/16 [History] Temazepam [Restoril] 30 mg PO HS 05/12/16 [History] Magnesium Oxide [Magox 400] 800 mg PO HS 10/15/16 [History] Venlafaxine HCl [Effexor] 75 mg PO BID #60 tab 02/06/17 [Rx] Calcium Citrate/Vitamin D3 [Calcitrate + Vit D Caplet] 2 each PO DAILY 04/14/17 [History] Multivitamins, Thera [Multivitamin (formulary)] 1 tab PO DAILY 04/14/17 [History ] Albuterol Inhaler [Ventolin Hfa Inhaler] 1 - 2 puff INHALATION Q6HR PRN [History] Budesonide-Formot 160-4.5 Mcg [Symbicort 160-4.5 Mcg Inhaler] 2 puff INHALATION BID PRN 07/07/17 [History] L.acidoph,Paracasei, B.lactis [Probiotic] 1 each PO DAILY 07/07/17 [History] Vitamin B-12 [place] 1 spray NASAL SA 07/07/17 [History] Zinc 50 mg PO DAILY 07/07/17 [History] amLODIPine [Norvasc] 5 mg PO DAILY 07/07/17 [History] metFORMIN HCL 1,000 mg PO BID 07/07/17 [History] Follow up Appointment(s)/Referral(s): Carol Rogers MD [STAFF PHYSICIAN] - 1 Week Patient Instructions/Handouts: *[facility] - (Anesthesia) Endoscopy Discharge Instructions, Esophageal Dilation (DC) Activity/Diet/Wound Care/Special Instructions: Liquid diet today. Soft diet tomorrow. Discharge Disposition: HOME SELF-CARE
[2017-07-08 14:01] VITALS: BP 120/76; PULSE 75; RESP 16
== END 2017-07-08 15:25 | disposition home or self-care (01) ==
LOC: ORWHC2ENDO 11:54
PROVIDERS: ATTEND Surgery Plastic and Reconstructive Surgery
DX: Z12.11 Encounter for screening for malignant neoplasm of colon (principal); K31.89 Other diseases of stomach and duodenum; K28.7 Chronic gastrojejunal ulcer without hemorrhage or perforation; K57.30 Diverticulosis of large intestine without perforation or abscess without bleeding; K64.1 Second degree hemorrhoids; J45.909 Unspecified asthma, uncomplicated; E11.9 Type 2 diabetes mellitus without complications; I10 Essential (primary) hypertension; Z98.84 Bariatric surgery status; Z79.84 Long term (current) use of oral hypoglycemic drugs; Z79.51 Long term (current) use of inhaled steroids; Z79.899 Other long term (current) drug therapy; Z87.891 Personal history of nicotine dependence; Z88.8 Allergy status to other drugs, medicaments and biological substances; Z88.5 Allergy status to narcotic agent
CPT/HCPCS: 43249; C1726; G0121

== ENCOUNTER → 2017-07-21 | Outpatient (CLI) | payer BC ==
[2017-07-21 16:52] VITALS: BMI 29.8
[2017-07-21 17:17] VITALS: BP 146/74; PULSE 87; RESP 16; TEMP 99.1
--- NOTE | 2017-08-08 12:28 | P.PN ---
Subjective Progress Note Date: 07/21/17 DATE OF SERVICE: 07/21/2017 CHIEF COMPLAINT: Follow up gastric bypass. HISTORY OF PRESENT ILLNESS: Marii Juan is a pleasant 62-year-old female who is status post conversion from sleeve gastrectomy to gastric bypass on 02/05. She has completed upper endoscopy with balloon dilatation. No further reports of dysphagia. She reports persistent gassiness. She has completed her omeprazole. She reports belching. At her 5 feet 3-1/2 inches, her highest weight was 307 pounds. Today she comes in weighing 171 pounds. She has lost 6 pounds in 1 month. She has maintained 136 pounds weight loss, lifetime. Her ideal body is 140 pounds. She has achieved 82% excess weight loss. Body mass index is reduced from 53.6 down to 29.8. She is no longer in the obese category. PAST MEDICAL HISTORY: 1. Morbid obesity. 2. Diabetes type 2, [id number]-dlprsezcc. 3. Hypertension. 4. Depression. 5. Hyperlipidemia. 6. Gastroesophageal reflux disease. 7. Magnesium deficiency. 8. Diabetic neuropathy. 9. Vitamin D deficiency. 10. Asthma. 11. Postoperative nausea and vomiting. 12. History of difficult intubation. PAST SURGICAL HISTORY: 1. Sleeve gastrectomy. 2. . 3. Hysterectomy. 4. Abdominoplasty. 5. Tendon release. 6. Blepharoplasty. 7. Upper endoscopy. 8. Status post gastric bypass, 02/2017 MEDICATIONS: 1. Glucophage. 2. Norvasc. 3. Effexor-XR. 4. Restoril. 5. Multivitamin. 6. Magnesium oxide. 7. Cozaar. 8. Calcium with Vitamin D. 9. Zinc 10. Vitamin B12 ALLERGIES: CODEINE. SOCIAL HISTORY: Remote history of tobacco use. FAMILY HISTORY: Pertinent for morbid obesity. REVIEW OF SYSTEMS: CONSTITUTIONAL: At her 5 feet 3-1/2 inches, her highest weight was 307 pounds. Today she comes in weighing 171 pounds. She has lost 6 pounds in 1 month. She has maintained 136 pounds weight loss, lifetime. Her ideal body is 140 pounds. She has achieved 82% excess weight loss. Body mass index is reduced from 53.6 down to 29.8. GASTROINTESTINAL: No dumping. Gastroesophageal reflux disease resolved. HEENT: Denies any troubles with vision or hearing. Dysphagia has resolved. ENDOCRINE: History of diabetes, type II. No reports of thyroid disorder. RESPIRATORY: Sleep apnea resolved. Asthma improved. CARDIOVASCULAR: History of hypertension. Denies any recent heart attack. MUSCULOSKELETAL: History of diffuse joint arthritis including of the bilateral hips and knees. NEURO: Prior history of head injury with troubles with memory. Otherwise, no reports of seizure disorders. PSYCH: History of depression without suicidal ideation. HEMATOLOGIC: Denies any easy bruising or bleeding or personal history of DVTs. SKIN: No rash. No skin cancer. PHYSICAL EXAM: VITAL SIGNS: 5 feet 3-1/2, 171 pounds. Body mass index is 29.8 Vital Signs Temp 99.1 F 07/21/17 17:13 Pulse 87 07/21/17 17:13 Resp 16 07/21/17 17:13 BP 146/74 07/21/17 17:13 Pulse Ox GENERAL: Well-developed female no acute distress. HEENT: No scleral icterus. Extraocular movements grossly intact. Moist buccal mucosa. NECK: Supple without lymphadenopathy. CHEST: Nonlabored respirations. Equal excursions. CARDIOVASCULAR: Regular rate regular rhythm. 2+ radial pulses. ABDOMEN: Soft, nontender, nondistended. No incisions along the bariatric sites. MUSCULOSKELETAL: No clubbing, cyanosis, or edema. NEURO: No focal or lateralizing signs. Cranial nerves II through XII grossly within normal limits. PSYCH: Appropriate affect. Alert and oriented to person, place, and time. SKIN: Well perfused. Good skin turgor. Laboratory Last Values WBC 8.3 k/uL (3.8-10.6) 06/23/17 16:51 RBC 4.35 m/uL (3.80-5.40) 06/23/17 16:51 Hgb 13.0 gm/dL (11.4-16.0) 06/23/17 16:51 Hct 39.9 % (34.0-46.0) 06/23/17 16:51 MCV 91.7 fL (80.0-100.0) 06/23/17 16:51 MCH 30.0 pg (25.0-35.0) 06/23/17 16:51 MCHC 32.7 g/dL (31.0-37.0) 06/23/17 16:51 RDW 14.5 % (11.5-15.5) 06/23/17 16:51 Plt Count 350 k/uL (150-450) 06/23/17 16:51 PT 10.4 sec (9.0-12.0) 06/23/17 16:51 INR 1.1 (<1.2) 06/23/17 16:51 APTT 22.8 sec (22.0-30.0) 06/23/17 16:51 Sodium 140 mmol/L (137-145) 06/23/17 16:51 Potassium 4.7 mmol/L (3.5-5.1) 06/23/17 16:51 Chloride 103 mmol/L (98-107) 06/23/17 16:51 Carbon Dioxide 28 mmol/L (22-30) 06/23/17 16:51 Anion Gap 9 mmol/L 06/23/17 16:51 BUN 19 mg/dL (7-17) H 06/23/17 16:51 Creatinine 0.90 mg/dL (0.52-1.04) 06/23/17 16:51 Est GFR (MDRD) Af Amer >60 (>60 ml/min/1.73 sqM) 06/23/17 16:51 Est GFR (MDRD) Non-Af >60 (>60 ml/min/1.73 sqM) 06/23/17 16:51 Glucose 117 mg/dL (74-99) H 06/23/17 16:[address] Glu mg/dL 137 06/23/17 16:51 Hemoglobin A1c 6.4 % (4.0-6.0) H 06/23/17 16:51 Calcium 10.0 mg/dL (8.4-10.2) 06/23/17 16:51 Phosphorus 2.5 mg/dL (2.5-4.5) 06/23/17 16:51 Magnesium 1.6 mg/dL (1.6-2.3) 06/23/17 16:51 Iron 60 ug/dL (50-170) 06/23/17 16:51 TIBC 309 ug/dL (228-460) 06/23/17 16:51 Iron Saturation 19.42 (12.00-45.00) 06/23/17 16:51 Ferritin 142.7 ng/mL (10.0-291.0) 06/23/17 16:51 Total Bilirubin 0.3 mg/dL (0.2-1.3) 06/23/17 16:51 AST 23 U/L (14-36) 06/23/17 16:51 ALT 36 U/L (9-52) 06/23/17 16:51 Alkaline Phosphatase 69 U/L (38-126) 06/23/17 16:51 Total Protein 8.0 g/dL (6.3-8.2) 06/23/17 16:51 Albumin 4.0 g/dL (3.5-5.0) 06/23/17 16:51 Prealbumin 20.0 mg/dL (18.0-42.0) 06/23/17 16:51 Triglycerides 152 mg/dL (<150) H 06/23/17 16:51 Cholesterol 181 mg/dL (<200) 06/23/17 16:51 LDL Cholesterol, Calc 75 mg/dL (0-99) 06/23/17 16:51 HDL Cholesterol 76 mg/dL (40-60) H 06/23/17 16:51 Vitamin A 57 ug/dL (38-106) 06/23/17 16:51 Vitamin B1 69 ug/L (38-122) 06/23/17 16:51 Vitamin B12 602.0 pg/mL (200.0-944.0) 06/23/17 16:51 Vitamin D 25-Hydroxy 30.2 ng/mL (30.0-100.0) 06/23/17 16:51 Folate >24.0 ng/mL 06/23/17 16:51 TSH 0.841 mIU/L (0.465-4.680) 06/23/17 16:51 PTH Intact 26.0 pg/mL (14.0-72.0) 06/23/17 16:51 Copper 1145 ug/L (810-1990) 06/23/17 16:51 Selenium 160 mcg/L (63-160) 06/23/17 16:51 Zinc 68 ug/dL (60-130) 06/23/17 16:51 ASSESSMENT: 1. Morbid obesity due to excess calories, resolved. 2. Body mass index reduced from 53.6 down to 29.8. 3. Status post gastric bypass. 4. Gastroesophageal reflux disease resolved. 5. Diabetes type II, [id number]. 6. Hypertensive heart disease. 7. Obstructive sleep apnea resolved. PLAN: 1. Her last demonstrates no nutritional deficiencies. 2. Recommend carbohydrate limited to 50 g daily. 3. Upper endoscopy is needed. 4. Recommend simethicone for gas. Objective - Vital Signs Vital signs: Intake & Output 07/20/17 07/21/17 07/21/17 18:59 06:59 18:59 Weight 77.61 kg
== END | disposition home or self-care (01) ==
LOC: BARWHC3 15:32
PROVIDERS: ATTEND Surgery Plastic and Reconstructive Surgery
DX: E66.01 Morbid (severe) obesity due to excess calories (principal); E11.9 Type 2 diabetes mellitus without complications; I11.9 Hypertensive heart disease without heart failure; I10 Essential (primary) hypertension; F32.9 Major depressive disorder, single episode, unspecified; E55.9 Vitamin D deficiency, unspecified; E61.2 Magnesium deficiency; Z98.84 Bariatric surgery status; Z68.29 Body mass index [BMI] 29.0-29.9, adult; Z79.84 Long term (current) use of oral hypoglycemic drugs; Z79.899 Other long term (current) drug therapy; Z88.5 Allergy status to narcotic agent; Z87.891 Personal history of nicotine dependence; Z90.710 Acquired absence of both cervix and uterus
CPT/HCPCS: 97803; 99211

== ENCOUNTER → 2017-09-15 | Outpatient (CLI) | payer BC ==
[2017-09-15 15:27] VITALS: BMI 28.6
[2017-09-15 16:24] LABS: HCT 36.6 % (34.0-46.0); HGB 11.5 gm/dL (11.4-16.0); MCH 28.7 pg (25.0-35.0); MCHC 31.4 g/dL (31.0-37.0); MCV 91.6 fL (80.0-100.0); Mean Platelet Volume 6.7; Platelet Count 345 k/uL (150-450); RBC 3.99 m/uL (3.80-5.40); RDW 13.1 % (11.5-15.5); WBC 7.1 k/uL (3.8-10.6)
[2017-09-15 16:34] LABS: INR 1.1 (<1.2); Partial Thromboplastin Time 22.7 sec (22.0-30.0); Prothrombin Time 10.6 sec (9.0-12.0)
[2017-09-15 16:37] LABS: ALT 31 U/L (9-52); AST 21 U/L (14-36); Albumin 3.5 g/dL (3.5-5.0); Alkaline Phosphatase 72 U/L (38-126); Anion Gap 11 mmol/L; Blood Urea Nitrogen 20 mg/dL (7-17); Calcium 9.2 mg/dL (8.4-10.2); Carbon Dioxide 26 mmol/L (22-30); Chloride 105 mmol/L (98-107); Cholesterol 152 mg/dL (<200); Glucose 94 mg/dL (74-99); HDL Cholesterol 65 mg/dL (40-60); LDL Cholesterol,Calculated 66 mg/dL (0-99); Magnesium 1.5 mg/dL (1.6-2.3); Phosphorus 3.8 mg/dL (2.5-4.5); Potassium 4.2 mmol/L (3.5-5.1); Sodium 142 mmol/L (137-145); Total Bilirubin 0.2 mg/dL (0.2-1.3); Total Protein 6.9 g/dL (6.3-8.2); Triglycerides 106 mg/dL (<150)
[2017-09-15 17:05] VITALS: BP 169/77; PULSE 84; TEMP 98
[2017-09-16 00:32] LABS: Iron Saturation 15.81 (12.00-45.00)
[2017-09-16 00:38] LABS: Vitamin D 25 Hydroxy 38.2 ng/mL (30.0-100.0)
[2017-09-16 00:54] LABS: Folate, Serum 21.9 ng/mL
[2017-09-16 02:34] LABS: Hemoglobin A1C 5.9 % (4.0-6.0)
[2017-09-16 03:52] LABS: Parathyroid Hormone Intact 52.1 pg/mL (14.0-72.0)
[2017-09-16 12:31] LABS: Zinc, Serum 73 ug/dL (60-130)
[2017-09-17 08:46] LABS: Vitamin A 51 ug/dL (38-106)
[2017-09-17 21:12] LABS: Selenium 135 mcg/L (63-160)
[2017-09-20 06:03] LABS: Vitamin B1 43 ug/L (38-122)
--- NOTE | 2017-10-02 21:44 | P.PN ---
Subjective Progress Note Date: 09/15/17 DATE OF SERVICE: 09/15/2017 CHIEF COMPLAINT: Follow up gastric bypass. HISTORY OF PRESENT ILLNESS: Marii Juan is a pleasant 62-year-old female who is status post conversion from sleeve gastrectomy to gastric bypass on 02/05. She is 7 months postop. She reports that her blood sugars has improved. She has been eating candy including potato chips. She reports developing dumping syndrome as a result. She is the smallest she has been in 40 years. She reports that her blood sugars crash after eating carbohydrates. At her 5 feet 3-1/2 inches, her highest weight was 307 pounds. Today she comes in weighing 164 pounds. She has lost 7 pounds in 2 months since her last visit. She has maintained 143 pounds weight loss, lifetime. Her ideal body is 140 pounds. She has achieved 86% excess weight loss. Body mass index is reduced from 53.6 down to 28.7. PAST MEDICAL HISTORY: 1. Morbid obesity, BMI 53.6, initial 2. Diabetes type 2, [id number]. 3. Hypertension. 4. Depression. 5. Hyperlipidemia. 6. Gastroesophageal reflux disease. 7. Magnesium deficiency. 8. Diabetic neuropathy. 9. Vitamin D deficiency. 10. Asthma. 11. Postoperative nausea and vomiting. 12. History of difficult intubation. PAST SURGICAL HISTORY: 1. Sleeve gastrectomy. 2. . 3. Hysterectomy. 4. Abdominoplasty. 5. Tendon release. 6. Blepharoplasty. 7. Upper endoscopy. 8. Status post gastric bypass, 02/2017 MEDICATIONS: 1. Glucophage. 2. Norvasc. 3. Effexor-XR. 4. Restoril. 5. Multivitamin. 6. Magnesium oxide. 7. Cozaar. 8. Calcium with Vitamin D. 9. Zinc 10. Vitamin B12 ALLERGIES: CODEINE. SOCIAL HISTORY: Remote history of tobacco use. FAMILY HISTORY: Pertinent for morbid obesity. REVIEW OF SYSTEMS: CONSTITUTIONAL: At her 5 feet 3-1/2 inches, her highest weight was 307 pounds. Today she comes in weighing 164 pounds. She has lost 7 pounds in 2 months since her last visit. She has maintained 143 pounds weight loss, lifetime. Her ideal body is 140 pounds. She has achieved 86% excess weight loss. Body mass index is reduced from 53.6 down to 28.7. GASTROINTESTINAL: Gastroesophageal reflux disease resolved. Has dumping syndrome with sugars. HEENT: Denies any troubles with vision or hearing. Dysphagia has resolved. ENDOCRINE: History of diabetes, type II. No reports of thyroid disorder. RESPIRATORY: Sleep apnea resolved. Asthma improved. CARDIOVASCULAR: History of hypertension. Denies any recent heart attack. MUSCULOSKELETAL: History of diffuse joint arthritis including of the bilateral hips and knees. NEURO: Prior history of head injury with troubles with memory. Otherwise, no reports of seizure disorders. PSYCH: History of depression without suicidal ideation. HEMATOLOGIC: Denies any easy bruising or bleeding or personal history of DVTs. SKIN: No rash. No skin cancer. PHYSICAL EXAM: VITAL SIGNS: 5 feet 3-1/2, 164 pounds. Body mass index is 28.7 Vital Signs Temp 98.0 F 09/15/17 17:03 Pulse 84 09/15/17 17:03 Resp BP 169/77 09/15/17 17:03 Pulse Ox GENERAL: Well-developed female no acute distress. HEENT: No scleral icterus. Extraocular movements grossly intact. Moist buccal mucosa. NECK: Supple without lymphadenopathy. CHEST: Nonlabored respirations. Equal excursions. CARDIOVASCULAR: Regular rate regular rhythm. 2+ radial pulses. ABDOMEN: Soft, nontender, nondistended. No incisions along the bariatric sites. MUSCULOSKELETAL: No clubbing, cyanosis, or edema. NEURO: No focal or lateralizing signs. Cranial nerves II through XII grossly within normal limits. PSYCH: Appropriate affect. Alert and oriented to person, place, and time. SKIN: Well perfused. Good skin turgor. Laboratory Last Values WBC 8.3 k/uL (3.8-10.6) 06/23/17 16:51 RBC 4.35 m/uL (3.80-5.40) 06/23/17 16:51 Hgb 13.0 gm/dL (11.4-16.0) 06/23/17 16:51 Hct 39.9 % (34.0-46.0) 06/23/17 16:51 MCV 91.7 fL (80.0-100.0) 06/23/17 16:51 MCH 30.0 pg (25.0-35.0) 06/23/17 16:51 MCHC 32.7 g/dL (31.0-37.0) 06/23/17 16:51 RDW 14.5 % (11.5-15.5) 06/23/17 16:51 Plt Count 350 k/uL (150-450) 06/23/17 16:51 PT 10.4 sec (9.0-12.0) 06/23/17 16:51 INR 1.1 (<1.2) 06/23/17 16:51 APTT 22.8 sec (22.0-30.0) 06/23/17 16:51 Sodium 140 mmol/L (137-145) 06/23/17 16:51 Potassium 4.7 mmol/L (3.5-5.1) 06/23/17 16:51 Chloride 103 mmol/L (98-107) 06/23/17 16:51 Carbon Dioxide 28 mmol/L (22-30) 06/23/17 16:51 Anion Gap 9 mmol/L 06/23/17 16:51 BUN 19 mg/dL (7-17) H 06/23/17 16:51 Creatinine 0.90 mg/dL (0.52-1.04) 06/23/17 16:51 Est GFR (MDRD) Af Amer >60 (>60 ml/min/1.73 sqM) 06/23/17 16:51 Est GFR (MDRD) Non-Af >60 (>60 ml/min/1.73 sqM) 06/23/17 16:51 Glucose 117 mg/dL (74-99) H 06/23/17 16:[address] Glu mg/dL 137 06/23/17 16:51 Hemoglobin A1c 6.4 % (4.0-6.0) H 06/23/17 16:51 Calcium 10.0 mg/dL (8.4-10.2) 06/23/17 16:51 Phosphorus 2.5 mg/dL (2.5-4.5) 06/23/17 16:51 Magnesium 1.6 mg/dL (1.6-2.3) 06/23/17 16:51 Iron 60 ug/dL (50-170) 06/23/17 16:51 TIBC 309 ug/dL (228-460) 06/23/17 16:51 Iron Saturation 19.42 (12.00-45.00) 06/23/17 16:51 Ferritin 142.7 ng/mL (10.0-291.0) 06/23/17 16:51 Total Bilirubin 0.3 mg/dL (0.2-1.3) 06/23/17 16:51 AST 23 U/L (14-36) 06/23/17 16:51 ALT 36 U/L (9-52) 06/23/17 16:51 Alkaline Phosphatase 69 U/L (38-126) 06/23/17 16:51 Total Protein 8.0 g/dL (6.3-8.2) 06/23/17 16:51 Albumin 4.0 g/dL (3.5-5.0) 06/23/17 16:51 Prealbumin 20.0 mg/dL (18.0-42.0) 06/23/17 16:51 Triglycerides 152 mg/dL (<150) H 06/23/17 16:51 Cholesterol 181 mg/dL (<200) 06/23/17 16:51 LDL Cholesterol, Calc 75 mg/dL (0-99) 06/23/17 16:51 HDL Cholesterol 76 mg/dL (40-60) H 06/23/17 16:51 Vitamin A 57 ug/dL (38-106) 06/23/17 16:51 Vitamin B1 69 ug/L (38-122) 06/23/17 16:51 Vitamin B12 602.0 pg/mL (200.0-944.0) 06/23/17 16:51 Vitamin D 25-Hydroxy 30.2 ng/mL (30.0-100.0) 06/23/17 16:51 Folate >24.0 ng/mL 06/23/17 16:51 TSH 0.841 mIU/L (0.465-4.680) 06/23/17 16:51 PTH Intact 26.0 pg/mL (14.0-72.0) 06/23/17 16:51 Copper 1145 ug/L (810-1990) 06/23/17 16:51 Selenium 160 mcg/L (63-160) 06/23/17 16:51 Zinc 68 ug/dL (60-130) 06/23/17 16:51 Hemoglobin A1c improved 6.4% Triglycerides elevated HDL elevated ASSESSMENT: 1. Morbid obesity due to excess calories, resolved. 2. Body mass index reduced from 53.6 down to 28.7 3. Status post gastric bypass. 4. Gastroesophageal reflux disease resolved. 5. Diabetes type II, [id number], improved 6. Hypertensive heart disease, stable 7. Obstructive sleep apnea resolved. 8. Dietary surveillance and counseling PLAN: 1. Recommend carbohydrate restriction 2. Recommend protein intake over 60 g daily 3. Recommend follow-up 9 months postop, November 2017. 4. Recommend bariatric metabolic panel Objective - Vital Signs Vital signs: Intake & Output 09/14/17 09/15/17 09/15/17 18:59 06:59 18:59 Weight 74.616 kg - Labs CBC & Chem 7: 09/15/17 16:06 09/15/17 16:06
== END | disposition home or self-care (01) ==
LOC: BARWHC3 14:56
PROVIDERS: ATTEND Surgery Plastic and Reconstructive Surgery
DX: Z09 Encounter for follow-up examination after completed treatment for conditions other than malignant neoplasm (principal); I11.9 Hypertensive heart disease without heart failure; F32.9 Major depressive disorder, single episode, unspecified; E78.5 Hyperlipidemia, unspecified; E11.40 Type 2 diabetes mellitus with diabetic neuropathy, unspecified; E55.9 Vitamin D deficiency, unspecified; E21.1 Secondary hyperparathyroidism, not elsewhere classified; K90.9 Intestinal malabsorption, unspecified; K74.1 Hepatic sclerosis; D50.9 Iron deficiency anemia, unspecified; N19 Unspecified kidney failure; E89.1 Postprocedural hypoinsulinemia; K50.90 Crohn's disease, unspecified, without complications; J45.909 Unspecified asthma, uncomplicated; Z79.84 Long term (current) use of oral hypoglycemic drugs; Z79.899 Other long term (current) drug therapy; Z88.5 Allergy status to narcotic agent; Z71.3 Dietary counseling and surveillance; Z98.84 Bariatric surgery status
CPT/HCPCS: 36415; 80053; 80061; 82306; 82525; 82607; 82728; 82746; 83036; 83540; 83550; 83735; 83970; 84100; 84134; 84255; 84425; 84443; 84590; 84630; 85027; 85610; 85730; 97803; 99211

== ENCOUNTER → 2017-11-10 | Outpatient (CLI) | payer BC ==
--- NOTE | 2017-11-10 14:10 | P.PN ---
Subjective Progress Note Date: 11/10/17 DATE OF SERVICE: 11/10/2017 CHIEF COMPLAINT: Follow up gastric bypass. HISTORY OF PRESENT ILLNESS: Marii Juan is a pleasant 62-year-old female who is status post conversion from sleeve gastrectomy to gastric bypass on 02/05. She comes in with recurrent reflux for the last month and she is taking Protonix now. She reports food is getting stuck as well. Still losing weight. She reports cellulitis of her toe and is on an antibiotics. She has no gout of the toe. Blood sugars 120s to 140s in the morning. She is still on Metformin. PLAN: 1. Recommend follow up with orthopedic doctor or [facility] specialist. May benefit of her left toe. 2. Due for labs. 3. May benefit from upper scope with dilation. 4. She is very active at 10,000 steps daily. DATE OF SERVICE: 09/15/2017 CHIEF COMPLAINT: Follow up gastric bypass. HISTORY OF PRESENT ILLNESS: Marii Juan is a pleasant 62-year-old female who is status post conversion from sleeve gastrectomy to gastric bypass on 02/05. She is 7 months postop. She reports that her blood sugars has improved. She has been eating candy including potato chips. She reports developing dumping syndrome as a result. She is the smallest she has been in 40 years. She reports that her blood sugars crash after eating carbohydrates. At her 5 feet 3-1/2 inches, her highest weight was 307 pounds. Today she comes in weighing 164 pounds. She has lost 7 pounds in 2 months since her last visit. She has maintained 143 pounds weight loss, lifetime. Her ideal body is 140 pounds. She has achieved 86% excess weight loss. Body mass index is reduced from 53.6 down to 28.7. PAST MEDICAL HISTORY: 1. Morbid obesity, BMI 53.6, initial 2. Diabetes type 2, [id number]. 3. Hypertension. 4. Depression. 5. Hyperlipidemia. 6. Gastroesophageal reflux disease. 7. Magnesium deficiency. 8. Diabetic neuropathy. 9. Vitamin D deficiency. 10. Asthma. 11. Postoperative nausea and vomiting. 12. History of difficult intubation. PAST SURGICAL HISTORY: 1. Sleeve gastrectomy. 2. . 3. Hysterectomy. 4. Abdominoplasty. 5. Tendon release. 6. Blepharoplasty. 7. Upper endoscopy. 8. Status post gastric bypass, 02/2017 MEDICATIONS: 1. Glucophage. 2. Norvasc. 3. Effexor-XR. 4. Restoril. 5. Multivitamin. 6. Magnesium oxide. 7. Cozaar. 8. Calcium with Vitamin D. 9. Zinc 10. Vitamin B12 ALLERGIES: CODEINE. SOCIAL HISTORY: Remote history of tobacco use. FAMILY HISTORY: Pertinent for morbid obesity. REVIEW OF SYSTEMS: CONSTITUTIONAL: At her 5 feet 3-1/2 inches, her highest weight was 307 pounds. Today she comes in weighing 164 pounds. She has lost 7 pounds in 2 months since her last visit. She has maintained 143 pounds weight loss, lifetime. Her ideal body is 140 pounds. She has achieved 86% excess weight loss. Body mass index is reduced from 53.6 down to 28.7. GASTROINTESTINAL: Gastroesophageal reflux disease resolved. Has dumping syndrome with sugars. HEENT: Denies any troubles with vision or hearing. Dysphagia has resolved. ENDOCRINE: History of diabetes, type II. No reports of thyroid disorder. RESPIRATORY: Sleep apnea resolved. Asthma improved. CARDIOVASCULAR: History of hypertension. Denies any recent heart attack. MUSCULOSKELETAL: History of diffuse joint arthritis including of the bilateral hips and knees. NEURO: Prior history of head injury with troubles with memory. Otherwise, no reports of seizure disorders. PSYCH: History of depression without suicidal ideation. HEMATOLOGIC: Denies any easy bruising or bleeding or personal history of DVTs. SKIN: No rash. No skin cancer. PHYSICAL EXAM: VITAL SIGNS: 5 feet 3-1/2, 164 pounds. Body mass index is 28.7 Vital Signs Temp 98.0 F 09/15/17 17:03 Pulse 84 09/15/17 17:03 Resp BP 169/77 09/15/17 17:03 Pulse Ox GENERAL: Well-developed female no acute distress. HEENT: No scleral icterus. Extraocular movements grossly intact. Moist buccal mucosa. NECK: Supple without lymphadenopathy. CHEST: Nonlabored respirations. Equal excursions. CARDIOVASCULAR: Regular rate regular rhythm. 2+ radial pulses. ABDOMEN: Soft, nontender, nondistended. No incisions along the bariatric sites. MUSCULOSKELETAL: No clubbing, cyanosis, or edema. NEURO: No focal or lateralizing signs. Cranial nerves II through XII grossly within normal limits. PSYCH: Appropriate affect. Alert and oriented to person, place, and time. SKIN: Well perfused. Good skin turgor. Laboratory Last Values WBC 8.3 k/uL (3.8-10.6) 06/23/17 16:51 RBC 4.35 m/uL (3.80-5.40) 06/23/17 16:51 Hgb 13.0 gm/dL (11.4-16.0) 06/23/17 16:51 Hct 39.9 % (34.0-46.0) 06/23/17 16:51 MCV 91.7 fL (80.0-100.0) 06/23/17 16:51 MCH 30.0 pg (25.0-35.0) 06/23/17 16:51 MCHC 32.7 g/dL (31.0-37.0) 06/23/17 16:51 RDW 14.5 % (11.5-15.5) 06/23/17 16:51 Plt Count 350 k/uL (150-450) 06/23/17 16:51 PT 10.4 sec (9.0-12.0) 06/23/17 16:51 INR 1.1 (<1.2) 06/23/17 16:51 APTT 22.8 sec (22.0-30.0) 06/23/17 16:51 Sodium 140 mmol/L (137-145) 06/23/17 16:51 Potassium 4.7 mmol/L (3.5-5.1) 06/23/17 16:51 Chloride 103 mmol/L (98-107) 06/23/17 16:51 Carbon Dioxide 28 mmol/L (22-30) 06/23/17 16:51 Anion Gap 9 mmol/L 06/23/17 16:51 BUN 19 mg/dL (7-17) H 06/23/17 16:51 Creatinine 0.90 mg/dL (0.52-1.04) 06/23/17 16:51 Est GFR (MDRD) Af Amer >60 (>60 ml/min/1.73 sqM) 06/23/17 16:51 Est GFR (MDRD) Non-Af >60 (>60 ml/min/1.73 sqM) 06/23/17 16:51 Glucose 117 mg/dL (74-99) H 06/23/17 16:[address] Glu mg/dL 137 06/23/17 16:51 Hemoglobin A1c 6.4 % (4.0-6.0) H 06/23/17 16:51 Calcium 10.0 mg/dL (8.4-10.2) 06/23/17 16:51 Phosphorus 2.5 mg/dL (2.5-4.5) 06/23/17 16:51 Magnesium 1.6 mg/dL (1.6-2.3) 06/23/17 16:51 Iron 60 ug/dL (50-170) 06/23/17 16:51 TIBC 309 ug/dL (228-460) 06/23/17 16:51 Iron Saturation 19.42 (12.00-45.00) 06/23/17 16:51 Ferritin 142.7 ng/mL (10.0-291.0) 06/23/17 16:51 Total Bilirubin 0.3 mg/dL (0.2-1.3) 06/23/17 16:51 AST 23 U/L (14-36) 06/23/17 16:51 ALT 36 U/L (9-52) 06/23/17 16:51 Alkaline Phosphatase 69 U/L (38-126) 06/23/17 16:51 Total Protein 8.0 g/dL (6.3-8.2) 06/23/17 16:51 Albumin 4.0 g/dL (3.5-5.0) 06/23/17 16:51 Prealbumin 20.0 mg/dL (18.0-42.0) 06/23/17 16:51 Triglycerides 152 mg/dL (<150) H 06/23/17 16:51 Cholesterol 181 mg/dL (<200) 06/23/17 16:51 LDL Cholesterol, Calc 75 mg/dL (0-99) 06/23/17 16:51 HDL Cholesterol 76 mg/dL (40-60) H 06/23/17 16:51 Vitamin A 57 ug/dL (38-106) 06/23/17 16:51 Vitamin B1 69 ug/L (38-122) 06/23/17 16:51 Vitamin B12 602.0 pg/mL (200.0-944.0) 06/23/17 16:51 Vitamin D 25-Hydroxy 30.2 ng/mL (30.0-100.0) 06/23/17 16:51 Folate >24.0 ng/mL 06/23/17 16:51 TSH 0.841 mIU/L (0.465-4.680) 06/23/17 16:51 PTH Intact 26.0 pg/mL (14.0-72.0) 06/23/17 16:51 Copper 1145 ug/L (810-1990) 06/23/17 16:51 Selenium 160 mcg/L (63-160) 06/23/17 16:51 Zinc 68 ug/dL (60-130) 06/23/17 16:51 Hemoglobin A1c improved 6.4% Triglycerides elevated HDL elevated ASSESSMENT: 1. Morbid obesity due to excess calories, resolved. 2. Body mass index reduced from 53.6 down to 28.7 3. Status post gastric bypass. 4. Gastroesophageal reflux disease resolved. 5. Diabetes type II, [id number], improved 6. Hypertensive heart disease, stable 7. Obstructive sleep apnea resolved. 8. Dietary surveillance and counseling PLAN: 1. Recommend carbohydrate restriction 2. Recommend protein intake over 60 g daily 3. Recommend follow-up 9 months postop, November 2017. 4. Recommend bariatric metabolic panel
[2017-11-10 14:33] VITALS: BP 136/85; PULSE 78; TEMP 98.6; BMI 28.4
== END | disposition home or self-care (01) ==
LOC: BARWHC3 12:50
PROVIDERS: ATTEND Surgery Plastic and Reconstructive Surgery
DX: Z09 Encounter for follow-up examination after completed treatment for conditions other than malignant neoplasm (principal); E11.9 Type 2 diabetes mellitus without complications; I11.9 Hypertensive heart disease without heart failure; I10 Essential (primary) hypertension; F32.9 Major depressive disorder, single episode, unspecified; E78.5 Hyperlipidemia, unspecified; E55.9 Vitamin D deficiency, unspecified; J45.909 Unspecified asthma, uncomplicated; E61.2 Magnesium deficiency; Z79.899 Other long term (current) drug therapy; Z87.891 Personal history of nicotine dependence; Z98.84 Bariatric surgery status; Z88.5 Allergy status to narcotic agent; Z71.3 Dietary counseling and surveillance
CPT/HCPCS: 99211

== ENCOUNTER → 2017-12-01 | Outpatient (CLI) | payer BC ==
[2017-12-01 11:51] LABS: HCT 38.8 % (34.0-46.0); HGB 12.8 gm/dL (11.4-16.0); MCH 29.9 pg (25.0-35.0); MCHC 32.9 g/dL (31.0-37.0); MCV 90.9 fL (80.0-100.0); Mean Platelet Volume 6.4; Platelet Count 269 k/uL (150-450); RBC 4.27 m/uL (3.80-5.40); RDW 13.2 % (11.5-15.5); WBC 6.2 k/uL (3.8-10.6)
[2017-12-01 12:02] LABS: INR 1.1 (<1.2); Prothrombin Time 10.3 sec (9.0-12.0)
[2017-12-01 12:13] LABS: Albumin 4.2 g/dL (3.5-5.0); Calcium 9.7 mg/dL (8.4-10.2); Magnesium 1.7 mg/dL (1.6-2.3); Phosphorus 3.9 mg/dL (2.5-4.5); Potassium 4.7 mmol/L (3.5-5.1); Total Bilirubin 0.3 mg/dL (0.2-1.3); Total Protein 7.6 g/dL (6.3-8.2)
[2017-12-01 16:14] LABS: Parathyroid Hormone Intact 40.5 pg/mL (14.0-72.0)
[2017-12-01 16:36] LABS: Vitamin D 25 Hydroxy 30.6 ng/mL (30.0-100.0)
[2017-12-01 17:12] LABS: Folate, Serum >24.0 ng/mL
[2017-12-01 18:40] LABS: Iron Saturation 26.89 (12.00-45.00)
[2017-12-01 20:26] LABS: Hemoglobin A1C 6.3 % (4.0-6.0)
[2017-12-02 15:31] LABS: Zinc, Serum 70 ug/dL (60-130)
[2017-12-03 05:43] LABS: Vitamin A 61 ug/dL (38-106)
[2017-12-03 13:27] LABS: Vitamin B1 60 ug/L (38-122)
== END | disposition home or self-care (01) ==
LOC: LABWHC1 10:43
PROVIDERS: ATTEND Surgery Plastic and Reconstructive Surgery
DX: E66.01 Morbid (severe) obesity due to excess calories (principal); E21.1 Secondary hyperparathyroidism, not elsewhere classified; E89.1 Postprocedural hypoinsulinemia; D50.9 Iron deficiency anemia, unspecified; K90.9 Intestinal malabsorption, unspecified; E55.9 Vitamin D deficiency, unspecified; K74.1 Hepatic sclerosis; N19 Unspecified kidney failure; K50.90 Crohn's disease, unspecified, without complications
CPT/HCPCS: 36415; 80053; 80061; 82306; 82525; 82607; 82728; 82746; 83036; 83540; 83550; 83735; 83970; 84100; 84134; 84255; 84425; 84443; 84590; 84630; 85027; 85610; 85730

== ENCOUNTER → 2018-02-09 | Outpatient (CLI) | payer BC ==
--- NOTE | 2018-02-09 16:25 | P.PN ---
Subjective Progress Note Date: 02/09/18 HPI: She has occassional flarre-up of GERD. She went back on Protonix for medications. Her weight is now stable. She is smaller now than she was before. She reports panniculitis. ABDOMEN: Unremarkable. PLAN: 1. Recommend Nystatin 2. Get labs. 3. EGD for stretch.
[2018-02-09 16:57] VITALS: BP 132/80; PULSE 82; TEMP 98.4; BMI 27.7
== END | disposition home or self-care (01) ==
LOC: BARWHC3 14:34
PROVIDERS: ATTEND Surgery Plastic and Reconstructive Surgery
DX: K21.9 Gastro-esophageal reflux disease without esophagitis (principal); M79.3 Panniculitis, unspecified; E66.01 Morbid (severe) obesity due to excess calories; Z79.899 Other long term (current) drug therapy
CPT/HCPCS: 97803; 99211

== ENCOUNTER 2018-03-16 06:01 | Day surgery (SDC) | payer BC ==
[2018-03-11 11:44] VITALS: BMI 27.8
[~2018-03-16 06:01] MED LIST changes: -LIDOCAINE 1% 20 ML VIAL (10MG/ML) FOR IV START INTRADERMA PRN
[2018-03-16 07:01] VITALS: RESP 18; TEMP 97.7
[2018-03-16 07:02] LABS: Glucose,Whole Blood 109 mg/dL (75-99)
[2018-03-16] MEDS ORDERED: LIDOCAINE 1% INJ 10MG/ML (20 ML MDV) ONE (07:39)
[2018-03-16] MEDS ORDERED: PROPOFOL 10 MG/ML 20 ML VIAL IV ONE (07:39)
--- NOTE | 2018-03-16 07:51 | P.GSHP ---
History of Present Illness H&P Date: 03/16/18 CHIEF COMPLAINT: GERD HISTORY OF PRESENT ILLNESS: The patient is a 62-year-old female who presents reports gastroesophageal reflux disease. Upper endoscopy was offered for further evaluation and management. PAST MEDICAL HISTORY: Please see list. PAST SURGICAL HISTORY: Please see list. MEDICATIONS: Please see list. ALLERGIES: Please see list. SOCIAL HISTORY: No illicit drug use FAMILY HISTORY: No reports of Crohn disease or ulcerative colitis. REVIEW OF ORGAN SYSTEMS: CONSTITUTIONAL: No reports of fevers or chills. GI: Denies any blood in stools or constipation. PHYSICAL EXAM: VITAL SIGNS: Stable GENERAL: Well-developed and pleasant in no acute distress. HEENT: No scleral icterus. Extraocular movements grossly intact. Moist buccal mucosa. NECK: Supple without lymphadenopathy. CHEST: Unlabored respirations. Equal bilateral excursions. CARDIOVASCULAR: Regular rate and rhythm. Distal 2+ pulses. ABDOMEN: Soft, nondistended. MUSCULOSKELETAL: No clubbing, cyanosis, or edema. ASSESSMENT: 1. Gastroesophageal reflux disease PLAN: 1. Recommend proceeding with an upper endoscopy Past Medical History Past Medical History: Asthma, Diabetes Mellitus, Hypertension Additional Past Medical History / Comment(s): tendonitis right arm; History of Any Multi-Drug Resistant Organisms: None Reported Past Surgical History: Bariatric Surgery, Section, Hysterectomy, Orthopedic Surgery, Tonsillectomy Additional Past Surgical History / Comment(s): hx gastric sleeve 2008,Gastric bypass 2017; abdominalplasty, tendon surgery brad arms, brad cataracts Past Anesthesia/Blood Transfusion Reactions: Previous Problems w/ Anesthesia, Postoperative Nausea & Vomiting (PONV) Additional Past Anesthesia/Blood Transfusion Reaction / Comment(s): difficult intubation d/t airway "pt states airway small" and she has bony ridges both mandibular and maxillary saulo. motion sickness as child, PONV with general anesthesiia Smoking Status: Former smoker - Past Family History Mother Family Medical History: No Reported History Father Family Medical History: No Reported History Medications and Allergies Home Medications Medication Instructions Recorded Confirmed Type Losartan Potassium [Cozaar] 100 mg PO HS 05/12/16 03/16/18 History Temazepam [Restoril] 30 mg PO HS 05/12/16 03/16/18 History Magnesium Oxide [Magox 400] 800 mg PO HS 10/15/16 03/16/18 History Venlafaxine HCl [Effexor] 75 mg PO BID #60 tab 02/06/17 03/16/18 Rx Calcium Citrate/Vitamin D3 2 each PO DAILY 04/14/17 03/16/18 History [Calcitrate + Vit D Caplet] Multivitamins, Thera [Multivitamin 1 tab PO DAILY 04/14/17 03/16/18 History (formulary)] Albuterol Inhaler [Ventolin Hfa 1 - 2 puff INHALATION Q6HR PRN 07/07/17 History Inhaler] Budesonide-Formot 160-4.5 Mcg 2 puff INHALATION BID PRN 07/07/17 03/16/18 History [Symbicort 160-4.5 Mcg Inhaler] Vitamin B-12 [place] 1 spray NASAL SA 07/07/17 03/16/18 History Zinc 50 mg PO DAILY 07/07/17 03/16/18 History amLODIPine [Norvasc] 5 mg PO DAILY 07/07/17 03/16/18 History metFORMIN HCL 1,000 mg PO BID 07/07/17 03/16/18 History Allergies Allergy/AdvReac Type Severity Reaction Status Date / Time merbromin Allergy Rash/Hives Verified 03/11/18 11:36 [From Mercurochrome] codeine AdvReac Headache Verified 03/11/18 11:36 Surgical - Exam Vital Signs Temp Pulse Resp BP Pulse Ox 97.7 F 65 18 137/82 97 03/16/18 06:51 03/16/18 06:51 03/16/18 06:51 03/16/18 06:51 03/16/18 06:51 Results - Labs Abnormal Lab Results - Last 24 Hours (Table) 03/16/18 Range/Units 06:58 POC Glucose (mg/dL) 109 H (75-99) mg/dL
--- NOTE | 2018-03-16 08:01 | P.PCN ---
Date of Procedure: 03/16/18 Description of Procedure: PREOPERATIVE DIAGNOSIS: Dysphagia. Epigastric abdominal pain POSTOPERATIVE DIAGNOSIS: Dysphagia. Epigastric abdominal pain Gastrojejunal stricture with chronic ulcer without perforation OPERATION: Esophagogastrojejunoscopy with balloon dilatation from 15 to 20 mm. SURGEON: Carol Rogers MD ANESTHESIA: MAC. INDICATIONS: The patient is a 62-year-old female who presents with a history of dysphagia and epigastric abdominal pain. Benefits and risks of the procedure were described. Informed consent was obtained. DESCRIPTION: The patient was brought into the endoscopy suite and laid in the left lateral decubitus position. After a timeout was confirmed, the procedure was initiated. An Olympus gastroscope was passed along the posterior oropharynx down to the distal esophagus where the squamocolumnar junction was unremarkable. The gastric pouch was entered. A gastrojejunal stricture of 52 mm was found as the adult gastroscope was 9.5 mm in size. A [employer] balloon dilator was placed through the scope. Final insufflation up to 20 mm was performed with a total of 1 minutes. The scope was advanced up to 65 cm from the incisors into the Yessenia limb. The mucosa of the gastrojejunal anastomosis was intact. However chronic gastrojejunal marginal ulcer was encountered. No full-thickness injury was encountered. The GI tract was desufflated. The patient tolerated the procedure well. FINDINGS: Stricture of approximately 15 mm encountered. Chronic gastrojejunal ulceration encountered. Successful balloon dilatation to 20 mm. RECOMMENDATIONS: Upper endoscopy as needed. Plan - Discharge Summary New Discharge Prescriptions: No Action Losartan Potassium [Cozaar] 100 mg PO HS Temazepam [Restoril] 30 mg PO HS Magnesium Oxide [Magox 400] 800 mg PO HS Venlafaxine HCl [Effexor] 75 mg PO BID #60 tab Multivitamins, Thera [Multivitamin (formulary)] 1 tab PO DAILY Calcium Citrate/Vitamin D3 [Calcitrate + Vit D Caplet] 2 each PO DAILY Budesonide-Formot 160-4.5 Mcg [Symbicort 160-4.5 Mcg Inhaler] 2 puff INHALATION BID PRN PRN Reason: sob Albuterol Inhaler [Ventolin Hfa Inhaler] 1 - 2 puff INHALATION Q6HR PRN PRN Reason: sob amLODIPine [Norvasc] 5 mg PO DAILY metFORMIN HCL 1,000 mg PO BID Zinc 50 mg PO DAILY Vitamin B-12 [place] 1 spray NASAL SA Discharge Medication List Losartan Potassium [Cozaar] 100 mg PO HS 05/12/16 [History] Temazepam [Restoril] 30 mg PO HS 05/12/16 [History] Magnesium Oxide [Magox 400] 800 mg PO HS 10/15/16 [History] Venlafaxine HCl [Effexor] 75 mg PO BID #60 tab 02/06/17 [Rx] Calcium Citrate/Vitamin D3 [Calcitrate + Vit D Caplet] 2 each PO DAILY 04/14/17 [History] Multivitamins, Thera [Multivitamin (formulary)] 1 tab PO DAILY 04/14/17 [History ] Albuterol Inhaler [Ventolin Hfa Inhaler] 1 - 2 puff INHALATION Q6HR PRN [History] Budesonide-Formot 160-4.5 Mcg [Symbicort 160-4.5 Mcg Inhaler] 2 puff INHALATION BID PRN 07/07/17 [History] Vitamin B-12 [place] 1 spray NASAL SA 07/07/17 [History] Zinc 50 mg PO DAILY 07/07/17 [History] amLODIPine [Norvasc] 5 mg PO DAILY 07/07/17 [History] metFORMIN HCL 1,000 mg PO BID 07/07/17 [History]
[2018-03-16 08:22] LABS: Glucose,Whole Blood 103 mg/dL (75-99)
[2018-03-16 08:36] VITALS: BP 124/80; PULSE 60
== END 2018-03-16 08:57 | disposition home or self-care (01) ==
LOC: ORWHC2ENDO 06:01
PROVIDERS: ATTEND Surgery Plastic and Reconstructive Surgery
DX: K28.9 Gastrojejunal ulcer, unspecified as acute or chronic, without hemorrhage or perforation (principal); R13.10 Dysphagia, unspecified; Z98.84 Bariatric surgery status; J45.909 Unspecified asthma, uncomplicated; E11.9 Type 2 diabetes mellitus without complications; Z79.84 Long term (current) use of oral hypoglycemic drugs; I10 Essential (primary) hypertension; Z87.891 Personal history of nicotine dependence; Z79.899 Other long term (current) drug therapy; Z88.5 Allergy status to narcotic agent; Z88.8 Allergy status to other drugs, medicaments and biological substances
CPT/HCPCS: 43245; J2001; J2704; C1726; 43249

== ENCOUNTER → 2018-06-22 | Outpatient (CLI) | payer BC ==
--- NOTE | 2018-06-22 16:27 | P.PN ---
Subjective Progress Note Date: 06/22/18 DATE OF SERVICE: 06/22/2018 CHIEF COMPLAINT: Follow up gastric bypass. HISTORY OF PRESENT ILLNESS: Marii Juan is a pleasant 63-year-old female who is status post conversion from sleeve gastrectomy to gastric bypass on 02/05. She is 1.5 years out. She reports drinking moderated alcohol due to family stressors. She went up 6 pounds from her last visit. She is eating much carbs. No report of gastroesophageal reflux disease. At her 5 feet 3-1/2 inches, her highest weight was 307 pounds. Today she comes in weighing 165 pounds from 159 pounds, 4 months ago. She has gained 6 pounds in 4 months. She has maintained 142 pounds weight loss, lifetime. Her ideal body is 140 pounds. She has achieved 85% excess weight loss. Body mass index is reduced from 53.6 down to 28.8. She is still taking Metformin. PAST MEDICAL HISTORY: 1. Morbid obesity, BMI 53.6, initial 2. Diabetes type 2, [id number]. 3. Hypertension. 4. Depression. 5. Hyperlipidemia. 6. Gastroesophageal reflux disease. 7. Magnesium deficiency. 8. Diabetic neuropathy. 9. Vitamin D deficiency. 10. Asthma. 11. Postoperative nausea and vomiting. 12. History of difficult intubation. PAST SURGICAL HISTORY: 1. Sleeve gastrectomy. 2. . 3. Hysterectomy. 4. Abdominoplasty. 5. Tendon release. 6. Blepharoplasty. 7. Upper endoscopy. 8. Status post gastric bypass, 02/2017 MEDICATIONS: 1. Glucophage. 2. Norvasc. 3. Effexor-XR. 4. Restoril. 5. Multivitamin. 6. Magnesium oxide. 7. Cozaar. 8. Calcium with Vitamin D. 9. Zinc 10. Vitamin B12 ALLERGIES: CODEINE. SOCIAL HISTORY: Remote history of tobacco use. FAMILY HISTORY: Pertinent for morbid obesity. REVIEW OF SYSTEMS: CONSTITUTIONAL: At her 5 feet 3-1/2 inches, her highest weight was 307 pounds. Today she comes in weighing 159 pounds from 160 pounds, 3 months ago. She has lost 1 pounds in 3 months. She has maintained 148 pounds weight loss, lifetime. Her ideal body is 140 pounds. She has achieved 89% excess weight loss. Body mass index is reduced from 53.6 down to 27.7. GASTROINTESTINAL: Gastroesophageal reflux disease. Has dumping syndrome with sugars. HEENT: Denies any troubles with vision or hearing. Dysphagia has resolved. ENDOCRINE: History of diabetes, type II. No reports of thyroid disorder. RESPIRATORY: Sleep apnea resolved. Asthma improved. CARDIOVASCULAR: History of hypertension. Denies any recent heart attack. MUSCULOSKELETAL: History of diffuse joint arthritis including of the bilateral hips and knees. NEURO: Prior history of head injury with troubles with memory. Otherwise, no reports of seizure disorders. PSYCH: History of depression without suicidal ideation. HEMATOLOGIC: Denies any easy bruising or bleeding or personal history of DVTs. SKIN: No rash. No skin cancer. PHYSICAL EXAM: VITAL SIGNS: 5 feet 3-1/2, 165 pounds. Body mass index is 28.8 Vital Signs Temp 98.2 F 06/22/18 16:30 Pulse 96 06/22/18 16:30 Resp 16 06/22/18 16:30 BP 128/77 06/22/18 16:30 Pulse Ox GENERAL: Well-developed female no acute distress. HEENT: No scleral icterus. Extraocular movements grossly intact. Moist buccal mucosa. NECK: Supple without lymphadenopathy. CHEST: Nonlabored respirations. Equal excursions. CARDIOVASCULAR: Regular rate regular rhythm. 2+ radial pulses. ABDOMEN: Soft, nontender, nondistended. No abdominal wall hernia. MUSCULOSKELETAL: No clubbing, cyanosis, or edema. NEURO: No focal or lateralizing signs. Cranial nerves II through XII grossly within normal limits. PSYCH: Appropriate affect. Alert and oriented to person, place, and time. SKIN: Well perfused. Good skin turgor. ASSESSMENT: 1. Morbid obesity due to excess calories, resolved. 2. Body mass index reduced from 53.6 down to 28.8 3. Status post gastric bypass. 4. Gastroesophageal reflux disease 5. Diabetes type II, [id number], improved 6. Hypertensive heart disease, stable 7. Obstructive sleep apnea resolved. 8. Gastrojejunal striture 9. Panniculitis PLAN: 1. Recommend cut back on carbs 2. Recommend bariatric labs Objective - Labs CBC & Chem 7: 06/22/18 17:50 06/22/18 17:50
[2018-06-22 16:36] VITALS: BP 128/77; PULSE 96; RESP 16; TEMP 98.2; BMI 28.8
[2018-06-22 18:25] LABS: HCT 34.9 % (34.0-46.0); HGB 11.4 gm/dL (11.4-16.0); MCH 29.7 pg (25.0-35.0); MCHC 32.6 g/dL (31.0-37.0); MCV 91.2 fL (80.0-100.0); Mean Platelet Volume 6.2; Platelet Count 415 k/uL (150-450); RBC 3.83 m/uL (3.80-5.40); WBC 11.1 k/uL (3.8-10.6)
[2018-06-22 18:28] LABS: INR 0.9 (<1.2); Partial Thromboplastin Time 24.8 sec (22.0-30.0); Prothrombin Time 10.1 sec (9.0-12.0)
[2018-06-23 04:20] LABS: Albumin 4.1 g/dL (3.80-4.90); Albumin/Globulin Ratio 1.78 (1.20-2.10); Calcium 9.1 mg/dL (8.7-10.3); Globulin 2.3 g/dL (1.6-3.3); LDL Cholesterol,Calculated 49.6 mg/dL (0.0-131.0); Magnesium 1.8 mg/dL (1.5-2.4); Potassium 4.4 mmol/L (3.5-5.5); Total Bilirubin 0.2 mg/dL (0.3-1.2); Total Protein 6.4 g/dL (6.2-8.2); VLDL Calculation 45.4 mg/dL (5.00-40.00)
[2018-06-23 04:28] LABS: Iron Saturation 10.56 (12.00-45.00)
[2018-06-23 04:37] LABS: Vitamin D 25 Hydroxy 28.8 ng/mL (30.0-100.0)
[2018-06-23 04:38] LABS: Folate, Serum >24.0 ng/mL
[2018-06-23 05:00] LABS: Parathyroid Hormone Intact 65.5 pg/mL (14.0-72.0)
[2018-06-23 05:02] LABS: Hemoglobin A1C 6.8 % (4.0-6.0)
[2018-06-23 13:28] LABS: Zinc, Serum 51 ug/dL (60-130)
[2018-06-24 04:30] LABS: Vitamin B1 93 ug/L (38-122)
[2018-06-24 04:41] LABS: Vitamin A 58 ug/dL (38-106)
[2018-06-25 19:41] LABS: Selenium 192 mcg/L (63-160)
== END | disposition home or self-care (01) ==
LOC: BARWHC3 14:58
PROVIDERS: ATTEND Surgery Plastic and Reconstructive Surgery
DX: Z48.815 Encounter for surgical aftercare following surgery on the digestive system (principal); K21.9 Gastro-esophageal reflux disease without esophagitis; E11.9 Type 2 diabetes mellitus without complications; I11.9 Hypertensive heart disease without heart failure; M79.3 Panniculitis, unspecified; K56.699 Other intestinal obstruction unspecified as to partial versus complete obstruction; Z68.28 Body mass index [BMI] 28.0-28.9, adult; Z98.84 Bariatric surgery status
CPT/HCPCS: 80053; 80061; 82306; 82525; 82607; 82728; 82746; 83036; 83540; 83550; 83735; 83970; 84100; 84134; 84255; 84425; 84443; 84590; 84630; 85027; 85610; 85730; 99211

== ENCOUNTER → 2018-12-21 | Outpatient (CLI) | payer BC ==
[2018-12-21 13:24] VITALS: BP 147/83; PULSE 78; TEMP 97.8; BMI 29.1
--- NOTE | 2018-12-21 13:53 | P.PN ---
Subjective Progress Note Date: 12/21/18 DATE OF SERVICE: 12/21/2018 CHIEF COMPLAINT: Follow up gastric bypass. HISTORY OF PRESENT ILLNESS: Marii Juan is a pleasant 63-year-old female who is status post conversion from sleeve gastrectomy to gastric bypass on 02/05/2017. She is over 2.5 years out. She comes in with new severe reflux disea se uncontrolled with medications or Omeprazole. She has history of ulcers. Her weight is stable. She has lost 130 to 140 pounds. She has lost another 10 pounds from doing weight watchers. She wants to get to under 160 pounds. At her 5 feet 3-1/2 inches, her highest weight was 307 pounds. Today she comes in weighing 165 pounds from 159 pounds, 4 months ago. She has gained 6 pounds in 4 months. She has maintained 142 pounds weight loss, lifetime. Her ideal body is 140 pounds. She has achieved 85% excess weight loss. Body mass index is reduced from 53.6 down to 28.8. She is still taking Metformin. PAST MEDICAL HISTORY: 1. Morbid obesity, BMI 53.6, initial 2. Diabetes type 2, [id number]. 3. Hypertension. 4. Depression. 5. Hyperlipidemia. 6. Gastroesophageal reflux disease. 7. Magnesium deficiency. 8. Diabetic neuropathy. 9. Vitamin D deficiency. 10. Asthma. 11. Postoperative nausea and vomiting. 12. History of difficult intubation. PAST SURGICAL HISTORY: 1. Sleeve gastrectomy. 2. . 3. Hysterectomy. 4. Abdominoplasty. 5. Tendon release. 6. Blepharoplasty. 7. Upper endoscopy. 8. Status post gastric bypass, 02/2017 MEDICATIONS: Home Medications Medication Instructions Recorded Confirmed Temazepam [Restoril] 30 mg PO HS 05/12/16 01/09/19 Magnesium Oxide [Magox 400] 800 mg PO HS 10/15/16 01/09/19 Calcium Citrate/Vitamin D3 2 each PO DAILY 04/14/17 01/09/19 [Calcitrate + Vit D Caplet] Multivitamins, Thera [Multivitamin 1 tab PO DAILY 04/14/17 01/09/19 (formulary)] metFORMIN HCL 1,000 mg PO BID 07/07/17 01/09/19 L.acidoph,Paracasei, B.lactis 1 each PO DAILY 01/05/19 01/09/19 [Probiotic] Venlafaxine HCl [Effexor] 75 mg PO BID 01/05/19 01/09/19 amLODIPine [Norvasc] 2.5 mg PO DAILY 01/05/19 01/09/19 Previous Rx's Medication Instructions Recorded Omeprazole 40 mg PO DAILY #90 capsule. 12/21/18 ALLERGIES: CODEINE. Allergies Allergy/AdvReac Type Severity Reaction Status Date / Time merbromin Allergy Rash/Hives Verified 01/05/19 11:24 [From Mercurochrome] codeine AdvReac Headache Verified 01/05/19 11:24 SOCIAL HISTORY: Remote history of tobacco use. FAMILY HISTORY: Pertinent for morbid obesity. REVIEW OF SYSTEMS: CONSTITUTIONAL: At her 5 feet 3-1/2 inches, her highest weight was 307 pounds. Today she comes in weighing 159 pounds from 160 pounds, 3 months ago. She has lost 1 pounds in 3 months. She has maintained 148 pounds weight loss, lifetime. Her ideal body is 140 pounds. She has achieved 89% excess weight loss. Body mass index is reduced from 53.6 down to 27.7. GASTROINTESTINAL: Gastroesophageal reflux disease. Has dumping syndrome with sugars. HEENT: Denies any troubles with vision or hearing. Dysphagia has resolved. ENDOCRINE: History of diabetes, type II. No reports of thyroid disorder. RESPIRATORY: Sleep apnea resolved. Asthma improved. CARDIOVASCULAR: History of hypertension. Denies any recent heart attack. MUSCULOSKELETAL: History of diffuse joint arthritis including of the bilateral hips and knees. NEURO: Prior history of head injury with troubles with memory. Otherwise, no reports of seizure disorders. PSYCH: History of depression without suicidal ideation. HEMATOLOGIC: Denies any easy bruising or bleeding or personal history of DVTs. SKIN: No rash. No skin cancer. PHYSICAL EXAM: VITAL SIGNS: 5 feet 3.5, 167 pounds. Body mass index is 29.1 Vital Signs Temp 97.8 F 12/21/18 13:22 Pulse 78 12/21/18 13:22 Resp BP 147/83 12/21/18 13:22 Pulse Ox GENERAL: Well-developed female no acute distress. HEENT: No scleral icterus. Extraocular movements grossly intact. Moist buccal mucosa. NECK: Supple without lymphadenopathy. CHEST: Nonlabored respirations. Equal excursions. CARDIOVASCULAR: Regular rate regular rhythm. 2+ radial pulses. ABDOMEN: Soft, nontender, nondistended. Epigastric pain resolved MUSCULOSKELETAL: No clubbing, cyanosis, or edema. NEURO: No focal or lateralizing signs. Cranial nerves II through XII grossly within normal limits. PSYCH: Appropriate affect. Alert and oriented to person, place, and time. SKIN: Well perfused. Good skin turgor. ASSESSMENT: 1. Morbid obesity due to excess calories, resolved. 2. Body mass index reduced from 53.6 down to 29.1 3. Status post gastric bypass. 4. Gastroesophageal reflux disease 5. Diabetes type II, [id number], improved 6. Hypertensive heart disease, stable 7. Obstructive sleep apnea resolved. 8. Gastrojejunal striture 9. Panniculitis 10. Dietary surveillance. PLAN: 1. She will continue with Weight watchers 2. Recommend EGD for history of ulcers for which she is intermediate risk. 3. Her weight watchers omari was reviewed showing increased carbs. Recommend increase fiber intake 4. Recommend re-check labs 5. Prescription senf for omeprazole Objective - Vital Signs Vital signs: Vital Signs Temp 97.8 F 12/21/18 13:22 Pulse 78 12/21/18 13:22 Resp BP 147/83 12/21/18 13:22 Pulse Ox Intake & Output 12/20/18 12/21/18 12/21/18 18:59 06:59 18:59 Weight 75.75 kg
== END | disposition home or self-care (01) ==
LOC: BARWHC3 13:08
PROVIDERS: ATTEND Surgery Plastic and Reconstructive Surgery
DX: Z48.815 Encounter for surgical aftercare following surgery on the digestive system (principal); K21.9 Gastro-esophageal reflux disease without esophagitis; I11.9 Hypertensive heart disease without heart failure; K31.89 Other diseases of stomach and duodenum; M79.3 Panniculitis, unspecified; E11.40 Type 2 diabetes mellitus with diabetic neuropathy, unspecified; Z71.3 Dietary counseling and surveillance; Z68.29 Body mass index [BMI] 29.0-29.9, adult; Z87.891 Personal history of nicotine dependence; Z90.710 Acquired absence of both cervix and uterus; Z98.84 Bariatric surgery status; Z98.890 Other specified postprocedural states; Z79.84 Long term (current) use of oral hypoglycemic drugs; Z79.899 Other long term (current) drug therapy; Z88.5 Allergy status to narcotic agent
CPT/HCPCS: 99211

== ENCOUNTER 2019-01-09 10:37 | Day surgery (SDC) | payer BC ==
[2019-01-05 11:40] VITALS: BMI 29.2
--- NOTE | 2019-01-08 22:36 | P.GSHP ---
History of Present Illness H&P Date: 01/09/19 CHIEF COMPLAINT: GERD HISTORY OF PRESENT ILLNESS: The patient is a 63-year-old female who presents reports gastroesophageal reflux disease. Upper endoscopy was offered for further evaluation and management. PAST MEDICAL HISTORY: Please see list. PAST SURGICAL HISTORY: Please see list. MEDICATIONS: Please see list. ALLERGIES: Please see list. SOCIAL HISTORY: No illicit drug use FAMILY HISTORY: No reports of Crohn disease or ulcerative colitis. REVIEW OF ORGAN SYSTEMS: CONSTITUTIONAL: No reports of fevers or chills. GI: Denies any blood in stools or constipation. PHYSICAL EXAM: VITAL SIGNS: Stable GENERAL: Well-developed and pleasant in no acute distress. HEENT: No scleral icterus. Extraocular movements grossly intact. Moist buccal mucosa. NECK: Supple without lymphadenopathy. CHEST: Unlabored respirations. Equal bilateral excursions. CARDIOVASCULAR: Regular rate and rhythm. Distal 2+ pulses. ABDOMEN: Soft, nondistended. MUSCULOSKELETAL: No clubbing, cyanosis, or edema. ASSESSMENT: 1. Gastroesophageal reflux disease PLAN: 1. Recommend proceeding with an upper endoscopy Past Medical History Past Medical History: Diabetes Mellitus, Hypertension Additional Past Medical History / Comment(s): STATES HAS HAD FOOD "GETTING STUCK" HX OF STOMACH ULCER History of Any Multi-Drug Resistant Organisms: None Reported Past Surgical History: Bariatric Surgery, Section, Hysterectomy, Orthopedic Surgery, Tonsillectomy Additional Past Surgical History / Comment(s): eyelids lifted, hx gastric sleeve 2008,Gastric bypass 2017; abdominalplasty, tendon surgery brad arms, brad cataracts Past Anesthesia/Blood Transfusion Reactions: Previous Problems w/ Anesthesia, Motion Sickness, Postoperative Nausea & Vomiting (PONV) Additional Past Anesthesia/Blood Transfusion Reaction / Comment(s): difficult intubation d/t airway "pt states airway small" and she has bony ridges both mandibular and maxillary saulo. motion sickness as child, Smoking Status: Former smoker - Past Family History Mother Family Medical History: No Reported History Father Family Medical History: No Reported History Medications and Allergies Home Medications Medication Instructions Recorded Confirmed Type Temazepam [Restoril] 30 mg PO HS 05/12/16 01/05/19 History Magnesium Oxide [Magox 400] 800 mg PO HS 10/15/16 01/05/19 History Calcium Citrate/Vitamin D3 2 each PO DAILY 04/14/17 01/05/19 History [Calcitrate + Vit D Caplet] Multivitamins, Thera [Multivitamin 1 tab PO DAILY 04/14/17 01/05/19 History (formulary)] metFORMIN HCL 1,000 mg PO BID 07/07/17 01/05/19 History Omeprazole 40 mg PO DAILY #90 capsule. 12/21/18 01/05/19 Rx L.acidoph,Paracasei, B.lactis 1 each PO DAILY 01/05/19 01/05/19 History [Probiotic] Venlafaxine HCl [Effexor] 75 mg PO BID 01/05/19 01/05/19 History amLODIPine [Norvasc] 2.5 mg PO DAILY 01/05/19 01/05/19 History Allergies Allergy/AdvReac Type Severity Reaction Status Date / Time merbromin Allergy Rash/Hives Verified 01/05/19 11:24 [From Mercurochrome] codeine AdvReac Headache Verified 01/05/19 11:24
[2019-01-09 10:53] VITALS: RESP 16; TEMP 96.8
[2019-01-09] MEDS ORDERED: LIDOCAINE 1% 20 ML VIAL (10MG/ML) FOR IV START INTRADERMA ONE (11:08)
[2019-01-09] MEDS ORDERED: MIDAZOLAM (PF) 2 MG/2 ML VIAL IVP ONE (11:10)
[2019-01-09 11:12] LABS: Glucose,Whole Blood 127 mg/dL (75-99)
[2019-01-09] MEDS ORDERED: MIDAZOLAM 2 MG/2 ML VIAL ONE (11:27)
[2019-01-09] MEDS ORDERED: PROPOFOL 10 MG/ML 20 ML VIAL IV ONE (11:27)
--- NOTE | 2019-01-09 11:44 | P.PCN ---
Date of Procedure: 01/09/19 Description of Procedure: PREOPERATIVE DIAGNOSIS: Dysphagia. POSTOPERATIVE DIAGNOSIS: Dysphagia. Gastrojejunal stricture without ulcer without perforation OPERATION: Esophagogastrojejunoscopy with balloon dilatation 20 mm. SURGEON: Carol Rogers MD ANESTHESIA: MAC. INDICATIONS: The patient is a 63-year-old female who presents with a history of dysphagia, gastric bypass including new-onset nausea and vomiting. Benefits and risks of the procedure were described. Informed consent was obtained. DESCRIPTION: The patient was brought into the endoscopy suite and laid in the left lateral decubitus position. After a timeout was confirmed, the procedure was initiated. An Olympus gastroscope was passed along the posterior oropharynx down to the distal esophagus where the squamocolumnar junction was unremarkable. The gastric pouch was entered. A gastrojejunal stricture of 15 mm was found as the adult gastroscope was 9.5 mm in size. A [employer] balloon dilator was placed through the scope. Final insufflation up to 20 mm was performed with a total of 2 minutes. The scope was advanced up to 60 cm from the incisors into the Yessenia limb. The mucosa of the gastrojejunal anastomosis was intact. No chronic gastrojejunal marginal ulcer was encountered. No full-thickness injury was en countered. The GI tract was desufflated. The patient tolerated the procedure well. FINDINGS: Squamocolumnar junction unremarkable at 37 cm. Stricture of approximately 15 mm encountered. Chronic gastrojejunal ulceration encountered. Successful balloon dilatation to 20 mm. Gastric pouch 3 cm. Mild angulation of entry from gastric pouch and Yessenia limb with mild functional intermittent obstruction RECOMMENDATIONS: Upper endoscopy stated Plan - Discharge Summary Discharge Rx Participant: Yes New Discharge Prescriptions: No Action Temazepam [Restoril] 30 mg PO HS Magnesium Oxide [Magox 400] 800 mg PO HS Multivitamins, Thera [Multivitamin (formulary)] 1 tab PO DAILY Calcium Citrate/Vitamin D3 [Calcitrate + Vit D Caplet] 2 each PO DAILY metFORMIN HCL 1,000 mg PO BID Omeprazole 40 mg PO DAILY #90 Venlafaxine HCl [Effexor] 75 mg PO BID L.acidoph,Paracasei, B.lactis [Probiotic] 1 each PO DAILY amLODIPine [Norvasc] 2.5 mg PO DAILY Discharge Medication List Temazepam [Restoril] 30 mg PO HS 05/12/16 [History] Magnesium Oxide [Magox 400] 800 mg PO HS 10/15/16 [History] Calcium Citrate/Vitamin D3 [Calcitrate + Vit D Caplet] 2 each PO DAILY 04/14/17 [History] Multivitamins, Thera [Multivitamin (formulary)] 1 tab PO DAILY 04/14/17 [History] metFORMIN HCL 1,000 mg PO BID 07/07/17 [History] Omeprazole 40 mg PO DAILY #90 capsule. 12/21/18 [Rx] L.acidoph,Paracasei, B.lactis [Probiotic] 1 each PO DAILY 01/05/19 [History] Venlafaxine HCl [Effexor] 75 mg PO BID 01/05/19 [History] amLODIPine [Norvasc] 2.5 mg PO DAILY 01/05/19 [History] Follow up Appointment(s)/Referral(s): [facility] [NON-STAFF] - As Needed Patient Instructions/Handouts: Esophageal Dilation (DC) Activity/Diet/Wound Care/Special Instructions: Diet as tolerated Discharge Disposition: HOME SELF-CARE
[2019-01-09 12:00] VITALS: BP 123/78; PULSE 62
== END 2019-01-09 12:15 | disposition home or self-care (01) ==
LOC: ORWHC2ENDO 10:37
PROVIDERS: ATTEND Surgery Plastic and Reconstructive Surgery
DX: K31.2 Hourglass stricture and stenosis of stomach (principal); K28.7 Chronic gastrojejunal ulcer without hemorrhage or perforation; Z98.84 Bariatric surgery status; K21.9 Gastro-esophageal reflux disease without esophagitis; E11.9 Type 2 diabetes mellitus without complications; I10 Essential (primary) hypertension; F32.9 Major depressive disorder, single episode, unspecified; Z88.1 Allergy status to other antibiotic agents; Z88.5 Allergy status to narcotic agent; Z88.8 Allergy status to other drugs, medicaments and biological substances; Z79.899 Other long term (current) drug therapy
CPT/HCPCS: 43245; J2250 ×2; J2704; C1726

== ENCOUNTER → 2019-06-21 | Outpatient (CLI) | payer BC ==
[2019-06-21 14:58] LABS: HCT 39.3 % (34.0-46.0); HGB 12.2 gm/dL (11.4-16.0); MCH 28.5 pg (25.0-35.0); MCHC 31.1 g/dL (31.0-37.0); MCV 91.5 fL (80.0-100.0); Mean Platelet Volume 6.7; Platelet Count 285 k/uL (150-450); RBC 4.29 m/uL (3.80-5.40); RDW 12.6 % (11.5-15.5); WBC 7.4 k/uL (3.8-10.6)
[2019-06-21 15:11] LABS: Partial Thromboplastin Time 23.5 sec (22.0-30.0); Prothrombin Time 10.4 sec (9.0-12.0)
[2019-06-21 18:53] LABS: % Iron Saturation 16.53 (12.00-45.00); African American GFR (CKD) 68.5 (60.0-200.0); Albumin 4.5 g/dL (3.80-4.90); Albumin/Globulin Ratio 2.14 (1.60-3.17); Anion Gap 9.2 mmol/L (4.00-12.00); Calcium 9.3 mg/dL (8.7-10.3); Carbon Dioxide 25.8 mmol/L (21.6-31.8); Chol/HDL Ratio 1.79; Globulin 2.1 g/dL (1.6-3.3); Magnesium 1.7 mg/dL (1.5-2.4); Non-African American GFR(CKD) 59.1 (60.0-200.0); Phosphorus 3.6 mg/dL (2.4-5.1); Potassium 4.4 mmol/L (3.5-5.5); Total Bilirubin 0.2 mg/dL (0.3-1.2); Total Protein 6.6 g/dL (6.2-8.2)
[2019-06-21 19:06] LABS: Folate, Serum 19.2 ng/mL
[2019-06-22 01:21] LABS: Hemoglobin A1C 7.2 % (4.0-6.0)
[2019-06-22 12:53] LABS: Zinc, Serum 69 ug/dL (60-130)
[2019-06-23 06:21] LABS: Vitamin A 67 ug/dL (38-106)
[2019-06-24 00:53] LABS: Selenium 121 mcg/L (63-160)
[2019-06-24 13:53] LABS: Vit B1(Thiamine) 68 ug/L (38-122)
== END | disposition home or self-care (01) ==
LOC: LABWHC1 14:19
PROVIDERS: ATTEND Surgery Plastic and Reconstructive Surgery
DX: E21.1 Secondary hyperparathyroidism, not elsewhere classified (principal); D50.9 Iron deficiency anemia, unspecified; K90.9 Intestinal malabsorption, unspecified; E44.0 Moderate protein-calorie malnutrition; E55.9 Vitamin D deficiency, unspecified; K74.1 Hepatic sclerosis; N19 Unspecified kidney failure; K50.90 Crohn's disease, unspecified, without complications; E89.1 Postprocedural hypoinsulinemia; E66.01 Morbid (severe) obesity due to excess calories
CPT/HCPCS: 36415; 80053; 80061; 82306; 82525; 82607; 82728; 82746; 83036; 83540; 83550; 83735; 83970; 84100; 84134; 84255; 84425; 84443; 84590; 84630; 85027; 85610; 85730

== ENCOUNTER → 2021-04-04 | Outpatient (CLI) | payer BC ==
[~2021-04-04] MED LIST changes: +CYANOCOBALAMIN 1,000 MCG/ML 1 ML VIAL IM NR; -LACTATED RINGERS 1,000 ML IV SCH
[2021-04-04 11:09] VITALS: BP 134/79; PULSE 74; RESP 16; TEMP 98.3
== END ==
LOC: PROCWHC3 10:38
PROVIDERS: ATTEND Surgery Plastic and Reconstructive Surgery
DX: D51.9 Vitamin B12 deficiency anemia, unspecified (principal); Z87.891 Personal history of nicotine dependence; Z88.5 Allergy status to narcotic agent
CPT/HCPCS: 96372; J3420

== ENCOUNTER 2021-04-14 06:58 | Day surgery (SDC) | payer BC, MEDICARE ==
[2021-04-11 10:18] VITALS: BMI 32.9
[~2021-04-14 06:58] MED LIST changes: -CYANOCOBALAMIN 1,000 MCG/ML 1 ML VIAL IM NR; +LACTATED RINGERS 1,000 ML IV SCH
[2021-04-14 07:30] VITALS: TEMP 97
[2021-04-14 07:37] LABS: Glucose,Whole Blood 112 mg/dL (75-99)
--- NOTE | 2021-04-14 07:46 | P.GSHP ---
History of Present Illness H&P Date: 04/14/21 CHIEF COMPLAINT: GERD HISTORY OF PRESENT ILLNESS: The patient is a 65-year-old female who presents reports gastroesophageal reflux disease. Upper endoscopy was offered for further evaluation and management. PAST MEDICAL HISTORY: Please see list. PAST SURGICAL HISTORY: Please see list. MEDICATIONS: Please see list. ALLERGIES: Please see list. SOCIAL HISTORY: No illicit drug use FAMILY HISTORY: No reports of Crohn disease or ulcerative colitis. REVIEW OF ORGAN SYSTEMS: CONSTITUTIONAL: No reports of fevers or chills. GI: Denies any blood in stools or constipation. PHYSICAL EXAM: VITAL SIGNS: Stable GENERAL: Well-developed and pleasant in no acute distress. HEENT: No scleral icterus. Extraocular movements grossly intact. Moist buccal mucosa. NECK: Supple without lymphadenopathy. CHEST: Unlabored respirations. Equal bilateral excursions. CARDIOVASCULAR: Regular rate and rhythm. Distal 2+ pulses. ABDOMEN: Soft, nondistended. MUSCULOSKELETAL: No clubbing, cyanosis, or edema. ASSESSMENT: 1. Gastroesophageal reflux disease PLAN: 1. Recommend proceeding with an upper endoscopy Past Medical History Past Medical History: Diabetes Mellitus, Hypertension, Osteoarthritis (OA) Additional Past Medical History / Comment(s): STATES HAS HAD FOOD "GETTING STUCK" HX OF STOMACH ULCER History of Any Multi-Drug Resistant Organisms: None Reported Past Surgical History: Bariatric Surgery, Section, Hysterectomy, Orthopedic Surgery, Tonsillectomy Additional Past Surgical History / Comment(s): eyelids lifted, hx gastric sleeve 2008,Gastric bypass 2017; abdominalplasty, tendon surgery brad arms, brad cataracts, TENDON SURGERY RIGHT HAND , LEFT HAND SURGERY Past Anesthesia/Blood Transfusion Reactions: Previous Problems w/ Anesthesia, Motion Sickness, Postoperative Nausea & Vomiting (PONV) Additional Past Anesthesia/Blood Transfusion Reaction / Comment(s): difficult intubation d/t airway "pt states airway small" and she has bony ridges both mandibular and maxillary saulo. motion sickness as child, Smoking Status: Former smoker - Past Family History Mother Family Medical History: No Reported History Father Family Medical History: No Reported History Medications and Allergies Home Medications Medication Instructions Recorded Confirmed Type Temazepam [Restoril] 30 mg PO HS 05/12/16 04/11/21 History Magnesium Oxide [Magox 400] 800 mg PO HS 10/15/16 04/11/21 History Calcium Citrate/Vitamin D3 2 each PO DAILY 04/14/17 04/11/21 History [Calcitrate + Vit D Caplet] metFORMIN HCL [Glucophage] 1,000 mg PO BID 07/07/17 04/11/21 History Omeprazole 40 mg PO DAILY #90 capsule. 12/21/18 04/11/21 Rx Venlafaxine HCl [Effexor] 75 mg PO BID 01/05/19 04/11/21 History Atorvastatin [Lipitor] 10 mg PO HS 04/11/21 04/11/21 History Allergies Allergy/AdvReac Type Severity Reaction Status Date / Time merbromin Allergy Rash/Hives Verified 04/14/21 07:14 [From Mercurochrome] codeine AdvReac Headache Verified 04/14/21 07:14 Surgical - Exam Vital Signs Temp Pulse Resp BP Pulse Ox 97.0 F L 88 17 151/84 98 04/14/21 07:23 04/14/21 07:23 04/14/21 07:23 04/14/21 07:23 04/14/21 07:23 Results - Labs Abnormal Lab Results - Last 24 Hours (Table) 04/14/21 Range/Units 07:28 POC Glucose (mg/dL) 112 H (75-99) mg/dL
[2021-04-14] MEDS ORDERED: LIDOCAINE 1% INJ 10MG/ML (20 ML MDV) ONE (07:59)
[2021-04-14] MEDS ORDERED: PROPOFOL 10 MG/ML 20 ML VIAL IV ONE (07:59)
[2021-04-14 08:22] VITALS: RESP 16
--- NOTE | 2021-04-14 08:24 | P.PCN ---
Date of Procedure: 04/14/21 Description of Procedure: PREOPERATIVE DIAGNOSIS: Dysphagia. Gastroesophageal reflux disease POSTOPERATIVE DIAGNOSIS: Dysphagia. 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 INDICATIONS: The patient is a 65-year-old female who presents with a history of dysphagia and gastroesophageal reflux disease. Benefits and risks of the procedure were described. Informed consent was obtained. DESCRIPTION: The patient was brought into the endoscopy suite and laid in the left lateral decubitus position. After a timeout was confirmed, the procedure was initiated. An Olympus gastroscope was passed along the posterior oropharynx down to the distal esophagus where the squamocolumnar junction was unremarkable. The gastric pouch was entered. A gastrojejunal stricture of 15 mm with the angulation was found as the adult gastroscope was 9.5 mm in size. A [employer] balloon dilator was placed through the scope. Final insufflation up to 20 mm was performed with a total of 2 minutes. The scope was advanced up to 60 cm from the incisors into the Yessenia limb. To address upper esophageal stenosis, 51-Barbadian dilator was placed over a guidewire after removing the scope and left for 2 minutes. The guidewire and dilator removed. The scope was reentered. The mucosa of the gastrojejunal anastomosis was intact. No chronic gastrojejunal marginal ulcer was encountered. No full-thickness injury was encountered. The GI tract was desufflated. The patient tolerated the procedure well. FINDINGS: Squamocolumnar junction unremarkable at 39 cm. Stricture of approximately 15 mm with angulation encountered. Upper esophageal hypertensive sphincter dilated using 51-Barbadian dilator Chronic gastrojejunal ulceration encountered. Successful balloon dilatation to 20 mm. Diaphragmatic hiatus at 40 cm. Gastric pouch 2 cm. RECOMMENDATIONS: Upper endoscopy as needed Plan - Discharge Summary Discharge Rx Participant: Yes New Discharge Prescriptions: Continue Temazepam [Restoril] 30 mg PO HS Magnesium Oxide [Magox 400] 800 mg PO HS Calcium Citrate/Vitamin D3 [Calcitrate + Vit D Caplet] 2 each PO DAILY metFORMIN HCL [Glucophage] 1,000 mg PO BID Omeprazole 40 mg PO DAILY #90 capsule. Venlafaxine HCl [Effexor] 75 mg PO BID Atorvastatin [Lipitor] 10 mg PO HS Discharge Medication List Temazepam [Restoril] 30 mg PO HS 05/12/16 [History] Magnesium Oxide [Magox 400] 800 mg PO HS 10/15/16 [History] Calcium Citrate/Vitamin D3 [Calcitrate + Vit D Caplet] 2 each PO DAILY 04/14/17 [History] metFORMIN HCL [Glucophage] 1,000 mg PO BID 07/07/17 [History] Omeprazole 40 mg PO DAILY #90 capsule. 12/21/18 [Rx] Venlafaxine HCl [Effexor] 75 mg PO BID 01/05/19 [History] Atorvastatin [Lipitor] 10 mg PO HS 04/11/21 [History] Follow up Appointment(s)/Referral(s): Carol Rogers MD [STAFF PHYSICIAN] - 04/23/21 Patient Instructions/Handouts: Esophageal Dilation (DC) Discharge Disposition: HOME SELF-CARE
[2021-04-14 08:44] VITALS: BP 139/75; PULSE 70
== END 2021-04-14 08:57 | disposition home or self-care (01) ==
LOC: ORWHC2ENDO 06:58
PROVIDERS: ATTEND Surgery Plastic and Reconstructive Surgery
DX: R13.10 Dysphagia, unspecified (principal); K22.2 Esophageal obstruction; K95.89 Other complications of other bariatric procedure; K21.9 Gastro-esophageal reflux disease without esophagitis; E11.9 Type 2 diabetes mellitus without complications; I10 Essential (primary) hypertension; M19.90 Unspecified osteoarthritis, unspecified site; Z98.891 History of uterine scar from previous surgery; Z90.710 Acquired absence of both cervix and uterus; Z98.42 Cataract extraction status, left eye; Z98.41 Cataract extraction status, right eye; Z98.890 Other specified postprocedural states; Z87.891 Personal history of nicotine dependence; F41.9 Anxiety disorder, unspecified; Z79.84 Long term (current) use of oral hypoglycemic drugs; Z79.899 Other long term (current) drug therapy; Z88.5 Allergy status to narcotic agent; Z91.048 Other nonmedicinal substance allergy status
CPT/HCPCS: 43245; 43249; J2001; J2704; C1726

== ENCOUNTER 2022-03-23 05:48 | Day surgery (SDC) | payer BC, MEDICARE ==
[2022-03-19 13:42] VITALS: BMI 28.3
[2022-03-23] MEDS ORDERED: LACTATED RINGERS 1,000 ML IV SCH (06:32)
[2022-03-23] MEDS ORDERED: LIDOCAINE 1% (10MG/ML) FOR IV START INTRADERMA PRN (06:32)
[2022-03-23 06:50] VITALS: RESP 18; TEMP 97
[2022-03-23 06:58] LABS: Glucose,Whole Blood 92 mg/dL (70-110)
[2022-03-23] MEDS ORDERED: LIDOCAINE 2% INJ 20 MG/ML (2 ML VIAL) ONE (06:59)
[2022-03-23] MEDS ORDERED: MIDAZOLAM 2 MG/2 ML VIAL ONE (06:59)
[2022-03-23] MEDS ORDERED: fentaNYL (PF) 50 MCG/ML 2 ML AMP ONE (06:59)
[2022-03-23] MEDS ORDERED: PROPOFOL 10 MG/ML 20 ML VIAL IV ONE (06:59)
--- NOTE | 2022-03-23 07:01 | P.GSHP ---
History of Present Illness H&P Date: 03/23/22 CHIEF COMPLAINT: GERD HISTORY OF PRESENT ILLNESS: The patient is a 66-year-old female who presents reports gastroesophageal reflux disease. Upper endoscopy was offered for further evaluation and management. PAST MEDICAL HISTORY: Please see list. PAST SURGICAL HISTORY: Please see list. MEDICATIONS: Please see list. ALLERGIES: Please see list. SOCIAL HISTORY: No illicit drug use FAMILY HISTORY: No reports of Crohn disease or ulcerative colitis. REVIEW OF ORGAN SYSTEMS: CONSTITUTIONAL: No reports of fevers or chills. GI: Denies any blood in stools or constipation. PHYSICAL EXAM: VITAL SIGNS: Stable GENERAL: Well-developed and pleasant in no acute distress. HEENT: No scleral icterus. Extraocular movements grossly intact. Moist buccal mucosa. NECK: Supple without lymphadenopathy. CHEST: Unlabored respirations. Equal bilateral excursions. CARDIOVASCULAR: Regular rate and rhythm. Distal 2+ pulses. ABDOMEN: Soft, nondistended. MUSCULOSKELETAL: No clubbing, cyanosis, or edema. ASSESSMENT: 1. Gastroesophageal reflux disease PLAN: 1. Recommend proceeding with an upper endoscopy Past Medical History Past Medical History: Diabetes Mellitus, GERD/Reflux, Hypertension, Osteoarthritis (OA) Additional Past Medical History / Comment(s): STATES HAS HAD FOOD "GETTING STUCK" HX OF STOMACH ULCER, migraines, History of Any Multi-Drug Resistant Organisms: None Reported Past Surgical History: Bariatric Surgery, Section, Hysterectomy, Orthopedic Surgery, Tonsillectomy Additional Past Surgical History / Comment(s): eyelids lifted, hx gastric sleeve 2008,Gastric bypass 2017; abdominalplasty, tendon surgery brad arms, brad cataracts, right hand trigger release surgery Past Anesthesia/Blood Transfusion Reactions: Previous Problems w/ Anesthesia, Motion Sickness, Postoperative Nausea & Vomiting (PONV) Additional Past Anesthesia/Blood Transfusion Reaction / Comment(s): difficult intubation d/t airway "pt states airway small" and she has bony ridges both mandibular and maxillary saulo. motion sickness as child, Smoking Status: Former smoker - Past Family History Mother Family Medical History: No Reported History Father Family Medical History: No Reported History Medications and Allergies Home Medications Medication Instructions Recorded Confirmed Type Temazepam [Restoril] 30 mg PO HS 05/12/16 03/23/22 History Magnesium Oxide [Magox 400] 800 mg PO HS 10/15/16 03/23/22 History Calcium Citrate/Vitamin D3 2 each PO DAILY 11/08/17 10/17/22 History [Calcitrate + Vit D Caplet] metFORMIN HCL [Glucophage] 1,000 mg PO BID 07/07/17 03/23/22 History Venlafaxine HCl [Effexor] 75 mg PO TID PRN 01/05/19 03/23/22 History Atorvastatin [Lipitor] 10 mg PO HS 04/11/21 03/23/22 History Cyanocobalamin [Vitamin B-12 1,000 mcg SQ QMONTHLY 02/18/22 03/23/22 History Injection] Dulaglutide [Trulicity] 0.75 mg SQ TU 02/18/22 03/23/22 History Barimelts 3 tab PO HS 03/19/22 03/23/22 History Omeprazole 40 mg PO HS 03/19/22 03/23/22 History methocarbamoL [Methocarbamol] 500 mg PO DIRECTED PRN 03/19/22 03/23/22 History Allergies Allergy/AdvReac Type Severity Reaction Status Date / Time cephalexin [From Keflex] Allergy headache Verified 03/23/22 06:41 merbromin Allergy Rash/Hives Verified 03/23/22 06:41 [From Mercurochrome] codeine AdvReac Headache Verified 03/23/22 06:41 Surgical - Exam Vital Signs Temp Pulse Resp BP Pulse Ox 97.0 F L 66 18 146/66 96 03/23/22 06:49 03/23/22 06:49 03/23/22 06:49 03/23/22 06:49 03/23/22 06:49
--- NOTE | 2022-03-23 07:22 | P.PCN ---
Date of Procedure: 03/23/22 Description of Procedure: PREOPERATIVE DIAGNOSIS: Dysphagia. Gastroesophageal reflux disease Esophageal stricture Esophageal dysmotility POSTOPERATIVE DIAGNOSIS: Dysphagia. Gastroesophageal reflux disease Gastrojejunal stenosis Esophageal dysmotility OPERATION: Esophagogastrojejunoscopy with rigid dilator over the guidewire 54 Fr with dilation of esophageal stenosis/dysmotility SURGEON: Carol Rogers MD ANESTHESIA: MAC. INDICATIONS: The patient is a 66-year-old female who presents with a history of dysphagia and gastroesophageal reflux disease. Benefits and risks of the procedure were described. Informed consent was obtained. DESCRIPTION: The patient was brought into the endoscopy suite and laid in the left lateral decubitus position. After a timeout was confirmed, the procedure was initiated. An Olympus gastroscope was passed into the posterior oropharynx down into the gastric pouch. The scope was entered into the gastric pouch with a widely patent gastrojejunal anastomosis. Next using an Citizen [place] rigid dilator, a guidewire was placed through the gastroscope. Next the scope was withdrawn. A 54-Turkmen rigid Citizen [place] dilator was passed carefully along the posterior oropharynx to 45 cm and left in place for 2-3 minutes stretch. The dilator was withdrawn including the guidewire. The scope was reentered along the posterior oropharynx with no findings of full- thickness tear of the upper esophageal sphincter. No full-thickness injury was encountered. The GI tract was desufflated. The patient tolerated the procedure well. FINDINGS: Gastrojejunal anastomotic stricture without ulceration and widely patent Presbyesophagus with esophageal dysmotility dilated Citizen [place] rigid dilator 54-Turkmen completed. RECOMMENDATIONS: Upper endoscopy as needed Plan - Discharge Summary New Discharge Prescriptions: Continue Temazepam [Restoril] 30 mg PO HS Magnesium Oxide [Magox 400] 800 mg PO HS Calcium Citrate/Vitamin D3 [Calcitrate + Vit D Caplet] 2 each PO DAILY metFORMIN HCL [Glucophage] 1,000 mg PO BID Venlafaxine HCl [Effexor] 75 mg PO TID PRN PRN Reason: Anxiety Atorvastatin [Lipitor] 10 mg PO HS Cyanocobalamin [Vitamin B-12 Injection] 1,000 mcg SQ QMONTHLY methocarbamoL [Methocarbamol] 500 mg PO DIRECTED PRN PRN Reason: Pain Omeprazole 40 mg PO HS Dulaglutide [Trulicity] 0.75 mg SQ TU Barimelts 3 tab PO HS Discharge Medication List Temazepam [Restoril] 30 mg PO HS 05/12/16 [History] Magnesium Oxide [Magox 400] 800 mg PO HS 10/15/16 [History] Calcium Citrate/Vitamin D3 [Calcitrate + Vit D Caplet] 2 each PO DAILY 04/14/17 [History] metFORMIN HCL [Glucophage] 1,000 mg PO BID 07/07/17 [History] Venlafaxine HCl [Effexor] 75 mg PO TID PRN 01/05/19 [History] Atorvastatin [Lipitor] 10 mg PO HS 04/11/21 [History] Cyanocobalamin [Vitamin B-12 Injection] 1,000 mcg SQ QMONTHLY 02/18/22 [History] Dulaglutide [Trulicity] 0.75 mg SQ TU 02/18/22 [History] Barimelts 3 tab PO HS 03/19/22 [History] Omeprazole 40 mg PO HS 03/19/22 [History] methocarbamoL [Methocarbamol] 500 mg PO DIRECTED PRN 03/19/22 [History] [facility]ment([facility] [place] [place] [facility] - [facility]22 Patient Instructions/Handouts: Esophageal Dilation (GEN) Discharge Disposition: HOME SELF-CARE
[2022-03-23 07:46] VITALS: BP 135/63; PULSE 67
== END 2022-03-23 08:21 | disposition home or self-care (01) ==
LOC: ORWHC2ENDO 05:48
PROVIDERS: ATTEND Surgery Plastic and Reconstructive Surgery
DX: Z13.810 Encounter for screening for upper gastrointestinal disorder (principal); E11.9 Type 2 diabetes mellitus without complications; E78.5 Hyperlipidemia, unspecified; I10 Essential (primary) hypertension; M19.90 Unspecified osteoarthritis, unspecified site; Z87.891 Personal history of nicotine dependence; Z88.1 Allergy status to other antibiotic agents; Z91.040 Latex allergy status; Z88.5 Allergy status to narcotic agent; Z79.890 Hormone replacement therapy; Z79.82 Long term (current) use of aspirin; Z79.899 Other long term (current) drug therapy; Z79.84 Long term (current) use of oral hypoglycemic drugs
CPT/HCPCS: 43248; J2250; J3010; J2704; J2001; 43249

== ENCOUNTER → 2023-09-01 | Outpatient (CLI) | payer BC, MEDICARE ==
--- NOTE | 2023-09-01 14:05 | P.HPBAR ---
Bariatric H&P - History & Physicial H&P Date: 09/01/23 History & Physicial: Visit/CC: Patient initial contact: 06/27/16 Initial weight: 100.414 kg Initial weight in pounds: Height: Initial BMI: Last weight: Current weight: Current weight in pounds: Current BMI: [place] body weight (based on NIH guidelines): Excess body weight loss: The patient is a 68 year-old F who presents for Bariatric Assessment. She has lost 30 pounds more!. She got serious about her diabetes and was on Trulicity and Manjuro. She is on 30 g of carbs daily. She avoids carbs. She is avoiding bad foods. BSG are mid 90s. She drinks 1 beer per week. She avoids sugar. She wants to get down to 130 to 135 pounds. Rarely food gets stuck. She denies sticking of food. Past Medical History Past Medical History: Diabetes Mellitus, GERD/Reflux, Hypertension, Osteoarth ritis (OA) Additional Past Medical History / Comment(s): STATES HAS HAD FOOD "GETTING STUCK" HX OF STOMACH ULCER, migraines, History of Any Multi-Drug Resistant Organisms: None Reported Past Surgical History: Bariatric Surgery, Section, Hysterectomy, Orthopedic Surgery, Tonsillectomy Additional Past Surgical History / Comment(s): eyelids lifted, hx gastric sleeve 2008,Gastric bypass 2017; abdominalplasty, tendon surgery brad arms, brad cataracts, right hand trigger release surgery Past Anesthesia/Blood Transfusion Reactions: Previous Problems w/ Anesthesia, Motion Sickness, Postoperative Nausea & Vomiting (PONV) Additional Past Anesthesia/Blood Transfusion Reaction / Comm: difficult intubation d/t airway "pt states airway small" and she has bony ridges both mandibular and maxillary saulo. motion sickness as child, Smoking Status: Former smoker - Past Family History Mother Family Medical History: No Reported History Father Family Medical History: No Reported History Bariatric Checklist Checklist: Plan: Checklist: EGD: 1. Hiatal hernia: 2. H. Pylori: HgbA1c: Vitamin D: Smoking: Former smoker Primary care physician referral: Dr Escudero (Dr Marii Goncalves) Psychiatry clearance: Cardiology clearance: Sleep study: Diet journal: VTE risk score: VTE risk level: Rehab needs at discharge:
[2023-09-01 15:19] LABS: Partial Thromboplastin Time 24.2 sec (22.0-30.0); Prothrombin Time 11.1 sec (10.0-12.5)
[2023-09-01 15:52] VITALS: BMI 24.6
[2023-09-01 18:41] LABS: HGB 12.5 g/dL (12.0-15.0); MCH 30.3 pg (27.0-32.0); MCHC 32.1 g/dL (32.0-37.0); MCV 94.4 FL (80.0-97.0); Mean Platelet Volume 9.1 FL (9.5-12.2); NRBC Per 100 WBC 0 X 10*3/uL (0.00-0.01); Platelet Count 256 X 10*3/uL (140-440); RBC 4.13 X 10*6/uL (4.10-5.20); RDW 12.5 % (11.5-14.5); WBC 8.77 X 10*3/uL (4.50-10.00)
[2023-09-01 19:13] LABS: % Iron Saturation 29.53 (12.00-45.00); ALT 39 U/L (8-44); AST 29 U/L (13-35); Albumin 4.3 g/dL (3.8-4.9); Albumin/Globulin Ratio 1.79 Ratio (1.60-3.17); Alkaline Phosphatase 59 U/L (41-126); BUN/Creat Ratio 24.33 Ratio (12.00-20.00); Blood Urea Nitrogen 21.9 mg/dL (9.0-27.0); Calcium 9.6 mg/dL (8.7-10.3); Carbon Dioxide 27.2 mmol/L (21.6-31.8); Chloride 103 mmol/L (96-109); Chol/HDL Ratio 1.53 Ratio; Ferritin 35.1 ng/mL (10.0-291.0); Globulin 2.4 g/dL (1.6-3.3); Glucose 89 mg/dL (70-110); Iron 114 UG/DL (50-170); LDL Cholesterol,Calculated 41.8 mg/dL (0.0-131.0); Magnesium 1.7 mg/dL (1.5-2.4); Phosphorus 3.5 mg/dL (2.4-5.1); Potassium 4.3 mmol/L (3.5-5.5); Sodium 141 mmol/L (135-145); Total Bilirubin 0.2 mg/dL (0.3-1.2); Total Iron Binding Capacity 386 UG/DL (228-460); Total Protein 6.7 g/dL (6.2-8.2); VLDL Calculation 11.16 mg/dL (5.00-40.00)
[2023-09-01 20:56] LABS: Prealbumin 16.1 mg/dL (18.0-42.0)
[2023-09-02 11:56] LABS: Zinc, Serum 66 ug/dL (60-130)
[2023-09-02 15:30] VITALS: BP 138/90; PULSE 86; RESP 16; TEMP 98.1
[2023-09-03 06:39] LABS: Vit B1(Thiamine) 47 ug/L (38-122)
[2023-09-03 11:59] LABS: Vitamin A 34 ug/dL (38-106)
[2023-09-08 14:52] LABS: Selenium 110 mcg/L (63-160)
== END ==
LOC: BARWHC3 12:59
PROVIDERS: ATTEND Surgery Plastic and Reconstructive Surgery
DX: E66.01 Morbid (severe) obesity due to excess calories (principal); Z53.9 Procedure and treatment not carried out, unspecified reason
CPT/HCPCS: 36415; 80053; 80061; 82306; 82525; 82607; 82728; 82746; 83036; 83540; 83550; 83735; 83970; 84100; 84134; 84255; 84425; 84443; 84590; 84630; 85027; 85610; 85730; 99211

== ENCOUNTER 2024-01-18 13:24 | Emergency (ER) | payer BC, MEDICARE ==
[~2024-01-18 13:24] MED LIST changes: +HYDROmorphone 0.5 MG/0.5 ML SYRINGE ONE; -LACTATED RINGERS 1,000 ML IV SCH; +ONDANSETRON 4 MG/2 ML VIAL ONE
[2024-01-18] MEDS ORDERED: HYDROmorphone 0.5 MG/0.5 ML SYRINGE ONE (13:44)
--- NOTE | 2024-02-25 12:08 | XR ---
Patient Marii Juan ID [id number] Order # EXAMINATION TYPE: XR elbow complete LT DATE OF EXAM: 01/18/2024 COMPARISON: None on the downtime PACS HISTORY: Pain after fall TECHNIQUE: 2 view left elbow FINDINGS: Radius aligns normally with the humerus. Anterior fat pad is normal. No elevation of the po sterior fat pad is evident. No acute fracture or dislocation evident. Soft tissues appear unremarkabl e. Follow up exams can be performed 7-10 days from acute trauma for continued pain. IMPRESSION: 1. Unremarkable 2 view left elbow
--- NOTE | 2024-02-25 12:08 | XR ---
Patient Marii Juan ID [id number] Order # EXAMINATION TYPE: XR shoulder complete LT DATE OF EXAM: 01/18/2024 COMPARISON: NONE HISTORY: Pain, fall TECHNIQUE: Shoulder examined in 3 projections. FINDINGS: The humeral head articulates with the glenoid. The acromio-clavicular junction is hypertrophied compatible with degenerative change. No inferior spu rring is noted. There is a fracture of the surgical neck of the left humerus. No additional fractures are identified. A follow up study can be performed 7-10 days from acute trauma for continued pain. MRI can be perfor med if soft tissue evaluation would be of benefit. IMPRESSION: 1. Fracture of the surgical neck left humerus.
== END 2024-01-18 15:57 | disposition home or self-care (01) ==
LOC: EC 13:24
CPT/HCPCS: 96374; 96375; 96376; 99284

== ENCOUNTER → 2024-04-05 | Outpatient (CLI) | payer BC, MEDICARE ==
[2024-04-05 15:42] VITALS: BP 146/77; PULSE 80; RESP 16; TEMP 98.3; BMI 22.4
--- NOTE | 2024-04-05 16:18 | P.BASOAP ---
Subjective Progress Note Date: 04/05/24 She has lost more weight. She is down to 129 pounds. She has lost 60 pounds in 3 years. She took her diabetes seriously on was on trulicity. She is compliant on the BSG. Hgb A1c 5.7. She broke her arm 11 weeks ago. She fell of her horse. She is doing well. She is wearing smaller clothes. She is the smallest that she has been. Objective - Vital Signs Vital signs: Vital Signs Temp 98.3 F 04/05/24 15:30 Pulse 80 04/05/24 15:30 Resp 16 04/05/24 15:30 BP 146/77 04/05/24 15:30 Pulse Ox FiO2 Intake & Output 04/04/24 04/05/24 04/05/24 18:59 06:59 18:59 Weight 58.513 kg Assessment/Plan Plan: Date: 04/05/24 Initial Weight: 100.414 kg Initial BMI: 38.6 Current Weight: 58.513 kg Current BMI: 22.4 Type of Surgery: Total Volume in Band: Previous Volume: Volume Removed: Volume Added: Band Size:
== END ==
LOC: BARWHC3 14:32
PROVIDERS: ATTEND Surgery Plastic and Reconstructive Surgery
DX: E66.01 Morbid (severe) obesity due to excess calories (principal); Z68.22 Body mass index [BMI] 22.0-22.9, adult; Z88.5 Allergy status to narcotic agent; Z88.1 Allergy status to other antibiotic agents; Z88.8 Allergy status to other drugs, medicaments and biological substances; Z87.891 Personal history of nicotine dependence
CPT/HCPCS: 99211

== ENCOUNTER 2024-08-07 06:51 | Day surgery (SDC) | payer BC, MEDICARE ==
[2024-08-03 15:03] VITALS: BMI 22.4
[~2024-08-07 06:51] MED LIST changes: -HYDROmorphone 0.5 MG/0.5 ML SYRINGE ONE; +LACTATED RINGERS 1,000 ML IV SCH; -ONDANSETRON 4 MG/2 ML VIAL ONE
[2024-08-07] MEDS: IV FLUID CONTINUATION 1,000 ML IV ONE (07:16)
[2024-08-07 07:20] VITALS: RESP 16; TEMP 97.1
[2024-08-07 07:33] LABS: Glucose,Whole Blood 117 mg/dL (70-110)
--- NOTE | 2024-08-07 07:41 | P.GSHP ---
History of Present Illness H&P Date: 08/07/24 CHIEF COMPLAINT: Esophageal stricture HISTORY OF PRESENT ILLNESS: The patient is a 69-year-old female who presents reports dysphagia. Upper endoscopy was offered for further evaluation and management. PAST MEDICAL HISTORY: Please see list. PAST SURGICAL HISTORY: Please see list. MEDICATIONS: Please see list. ALLERGIES: Please see list. SOCIAL HISTORY: No illicit drug use FAMILY HISTORY: No reports of Crohn disease or ulcerative colitis. REVIEW OF ORGAN SYSTEMS: CONSTITUTIONAL: No reports of fevers or chills. GI: Denies any blood in stools or constipation. PHYSICAL EXAM: VITAL SIGNS: Stable GENERAL: Well-developed and pleasant in no acute distress. HEENT: No scleral icterus. Extraocular movements grossly intact. Moist buccal mucosa. NECK: Supple without lymphadenopathy. CHEST: Unlabored respirations. Equal bilateral excursions. CARDIOVASCULAR: Regular rate and rhythm. Distal 2+ pulses. ABDOMEN: Soft, nondistended. MUSCULOSKELETAL: No clubbing, cyanosis, or edema. ASSESSMENT: 1. Esophageal stricture PLAN: 1. Recommend proceeding with an upper endoscopy with rigid dilators. Past Medical History Past Medical History: Diabetes Mellitus, GERD/Reflux, Hypertension, Osteoarthritis (OA) Additional Past Medical History / Comment(s): STATES HAS HAD FOOD "GETTING STUCK" HX OF STOMACH ULCER, migraines, Lt arm fracture Jan 2024 History of Any Multi-Drug Resistant Organisms: None Reported Past Surgical History: Bariatric Surgery, Section, Hysterectomy, Orthopedic Surgery, Tonsillectomy Additional Past Surgical History / Comment(s): eyelids lifted, hx gastric sleeve 2008,Gastric bypass 2016; abdominalplasty, tendon surgery brad arms, brad cataracts, right hand trigger release surgery Past Anesthesia/Blood Transfusion Reactions: Previous Problems w/ Anesthesia, Motion Sickness, Postoperative Nausea & Vomiting (PONV) Additional Past Anesthesia/Blood Transfusion Reaction / Comment(s): difficult intubation d/t airway "pt states airway small" and she has bony ridges both mandibular and maxillary saulo. motion sickness as child, Smoking Status: Former smoker - Past Family History Mother Family Medical History: No Reported History Father Family Medical History: No Reported History Medications and Allergies Home Medications Medication Instructions Recorded Confirmed Type Temazepam [Restoril] 30 mg PO HS 05/12/16 08/07/24 History Magnesium Oxide [Magox 400] 800 mg PO HS 10/15/16 08/07/24 History Calcium Citrate/Vitamin D3 2 each PO HS 04/14/17 08/07/24 History [Calcitrate + Vit D Caplet] Venlafaxine HCl [Effexor] 75 mg PO TID PRN 01/05/19 08/07/24 History Atorvastatin [Lipitor] 10 mg PO HS 04/11/21 08/07/24 History Cyanocobalamin [Vitamin B-12 1,000 mcg SQ QMONTHLY 02/18/22 08/07/24 History Injection] Barimelts 3 tab PO HS 03/19/22 08/07/24 History methocarbamoL 500 mg PO DIRECTED PRN 03/19/22 08/07/24 History Tirzepatide [Mounjaro] 2.5 mg SQ WEEKLY 04/05/24 08/07/24 History Pantoprazole [Protonix] 1 tab PO BID 07/12/24 08/07/24 History Allergies Allergy/AdvReac Type Severity Reaction Status Date / Time cephalexin [From Keflex] Allergy headache Verified 08/07/24 07:24 merbromin Allergy Rash/Hives Verified 08/07/24 07:24 [From Mercurochrome] codeine AdvReac Headache Verified 08/07/24 07:24 Surgical - Exam Vital Signs Temp Pulse Resp BP Pulse Ox 97.1 F L 82 16 160/99 96 08/07/24 07:16 08/07/24 07:16 08/07/24 07:16 08/07/24 07:16 08/07/24 07:16 Results - Labs Abnormal Lab Results - Last 24 Hours (Table) 08/07/24 Range/Units 07:32 POC Glucose (mg/dL) 117 H (70-110) mg/dL
[2024-08-07] MEDS ORDERED: LIDOCAINE 1% INJ 10MG/ML (20 ML MDV) ONE (08:01)
[2024-08-07] MEDS ORDERED: PROPOFOL 10 MG/ML 20 ML VIAL IV ONE (08:01)
[2024-08-07 08:40] VITALS: BP 130/74; PULSE 69
--- NOTE | 2024-08-07 08:59 | P.PCN ---
Date of Procedure: 08/07/24 Description of Procedure: PREOPERATIVE DIAGNOSIS: Dysphagia. Chronic cough Gastroesophageal reflux disease POSTOPERATIVE DIAGNOSIS: Gastrojejunal stenosis Esophageal dysmotility with esophageal stricture Eosinophilic esophagitis OPERATION: Esophagogastrojejunoscopy with [employer] [place] [employer] 20 mm balloon dilator for gastrojejunal stenosis Esophagogastrojejunoscopy with rigid dilator over the guidewire 51 Fr with dilation of esophageal stenosis/dysmotility Esophagogastrojejunoscopy with cold forcep biopsies esophagus SURGEON: Carol Rogers MD ANESTHESIA: MAC. INDICATIONS: The patient is a 69-year-old female who presents with a history of dysphagia including chronic cough. Benefits and risks of the procedure were described. Informed consent was obtained. DESCRIPTION: The patient was brought into the endoscopy suite and laid in the left lateral decubitus position. After a timeout was confirmed, the procedure was initiated. An Olympus gastroscope was passed into the posterior oropharynx down into the gastric pouch. The scope was entered into the gastric pouch with gastrojejunal stenosis along the gastrojejunal anastomosis. To address her 15 mm gastrojejunal stricture, a 20 mm [place] [employer] balloon was used to dilate. Next using an [place]ian rigid dilator, a guidewire was placed through the gastroscope. Next the scope was withdrawn. A 51-Bulgarian rigid [place]ian dilator was passed carefully along the posterior oropharynx to 45 cm and left in place for 2-3 minutes stretch. The dilator was withdrawn including the guidewire. The scope was reentered along the posterior oropharynx with no findings of full- thickness tear of the upper esophageal sphincter. Additionally, random biopsies along esophagus was obtained for eosinophilic esophagitis. No full-thickness injury was encountered. The GI tract was desufflated. The patient tolerated the procedure well. FINDINGS: Gastrojejunal anastomotic stricture without ulceration and stenosis dilated, 20 mm Presbyesophagus with esophageal dysmotility dilated [place]ian rigid dilator 51-Bulgarian completed. Biopsies obtained for eosinophilic esophagitis RECOMMENDATIONS: Upper endoscopy as needed Recommend follow-up with farm management professor for environmental allergies Recommend home inspection for environmental allergens Plan - Discharge Summary Discharge Rx Participant: Yes New Discharge Prescriptions: Continue Temazepam [Restoril] 30 mg PO HS Magnesium Oxide [Magox 400] 800 mg PO HS Calcium Citrate/Vitamin D3 [Calcitrate + Vit D Caplet] 2 each PO HS Venlafaxine HCl [Effexor] 75 mg PO TID PRN PRN Reason: Anxiety Atorvastatin [Lipitor] 10 mg PO HS Cyanocobalamin [Vitamin B-12 Injection] 1,000 mcg SQ QMONTHLY methocarbamoL 500 mg PO DIRECTED PRN PRN Reason: Pain Pantoprazole [Protonix] 1 tab PO BID Barimelts 3 tab PO HS Tirzepatide [Mounjaro] 2.5 mg SQ WEEKLY Discharge Medication List Temazepam [Restoril] 30 mg PO HS 05/12/16 [History] Magnesium Oxide [Magox 400] 800 mg PO HS 10/15/16 [History] Calcium Citrate/Vitamin D3 [Calcitrate + Vit D Caplet] 2 each PO HS 04/14/17 [History] Venlafaxine HCl [Effexor] 75 mg PO TID PRN 01/05/19 [History] Atorvastatin [Lipitor] 10 mg PO HS 04/11/21 [History] Cyanocobalamin [Vitamin B-12 Injection] 1,000 mcg SQ QMONTHLY 02/18/22 [History] Barimelts 3 tab PO HS 03/19/22 [History] methocarbamoL 500 mg PO DIRECTED PRN 03/19/22 [History] Tirzepatide [Mounjaro] 2.5 mg SQ WEEKLY 04/05/24 [History] Pantoprazole [Protonix] 1 tab PO BID 07/12/24 [History] [facility] [place] [facility] - As Needed Patient Instructions/Handouts: *Surgery [facility] - (Anesthesia) Discharge Instructions Outpatient Surgery, Esophageal Dilation (DC) Activity/Diet/Wound Care/Special Instructions: Recommend home inspection for mold and environmental allergies Recommend allergy assessment for environmental allergy intolerance Warm beverages for 3 days Discharge Disposition: HOME SELF-CARE
== END 2024-08-07 09:02 | disposition home or self-care (01) ==
LOC: ORWHC2ENDO 06:51
PROVIDERS: ATTEND Surgery Plastic and Reconstructive Surgery
DX: K22.2 Esophageal obstruction (principal); K21.9 Gastro-esophageal reflux disease without esophagitis; K20.0 Eosinophilic esophagitis; K22.4 Dyskinesia of esophagus; K91.858 Other complications of intestinal pouch; I10 Essential (primary) hypertension; E11.9 Type 2 diabetes mellitus without complications; G43.909 Migraine, unspecified, not intractable, without status migrainosus; F41.9 Anxiety disorder, unspecified; F32.A Depression, unspecified; M19.90 Unspecified osteoarthritis, unspecified site; Z91.89 Other specified personal risk factors, not elsewhere classified; Z79.85 Long-term (current) use of injectable non-insulin antidiabetic drugs; Z79.899 Other long term (current) drug therapy; Z87.891 Personal history of nicotine dependence; Z87.11 Personal history of peptic ulcer disease; Z88.5 Allergy status to narcotic agent; Z88.1 Allergy status to other antibiotic agents; Z88.8 Allergy status to other drugs, medicaments and biological substances
CPT/HCPCS: 43239; 43245; 43248; J2003; J2704; C1726; 88305

== ENCOUNTER → 2024-08-16 | Outpatient (CLI) | payer BC, MEDICARE ==
[2024-08-16 13:55] VITALS: BP 134/80; PULSE 82; RESP 16; TEMP 97.9; BMI 22.1
== END ==
LOC: BARWHC3 12:58
PROVIDERS: ATTEND Surgery Plastic and Reconstructive Surgery
DX: E66.01 Morbid (severe) obesity due to excess calories (principal); Z53.9 Procedure and treatment not carried out, unspecified reason
CPT/HCPCS: 99211

== ENCOUNTER → 2024-12-13 | Outpatient (CLI) | payer BC, MEDICARE ==
[2024-12-13 13:13] VITALS: BP 153/77; PULSE 76; RESP 16; TEMP 97.7; BMI 20.7
--- NOTE | 2024-12-13 13:55 | P.BASOAP ---
Subjective Progress Note Date: 12/13/24 ECHO done. Whole in the heart and risk of chart is elevated. She has strict blood sugar. BSG at 100% target. 188 BSG. She has lost more weight 119 pounds. She wants to be 120 to 125 pounds. She is 116 pounds. She feels good and feels amazing. She is raising eggs. Rare dysphagia. Rare heartburn. NO belly pain. She is now the smallest in the room. Objective - Vital Signs Vital signs: Vital Signs Temp 97.7 F 12/13/24 13:04 Pulse 76 12/13/24 13:04 Resp 16 12/13/24 13:04 BP 153/77 12/13/24 13:04 Pulse Ox FiO2 Intake & Output 12/12/24 12/13/24 12/13/24 18:59 06:59 18:59 Weight 53.977 kg Assessment/Plan Plan: Date: 12/13/24 Initial Weight: 100.414 kg Initial BMI: 38.6 Current Weight: 53.977 kg Current BMI: 20.7 Type of Surgery: Total Volume in Band: Previous Volume: Volume Removed: Volume Added: Band Size:
== END ==
LOC: BARWHC3 12:53
PROVIDERS: ATTEND Surgery Plastic and Reconstructive Surgery
DX: E66.01 Morbid (severe) obesity due to excess calories (principal); Z68.20 Body mass index [BMI] 20.0-20.9, adult; Z88.5 Allergy status to narcotic agent; Z88.1 Allergy status to other antibiotic agents; Z88.8 Allergy status to other drugs, medicaments and biological substances; Z87.891 Personal history of nicotine dependence
CPT/HCPCS: 97802; 99211